=== PATIENT | female | born 1950 | race Caucasian/White ===

== ENCOUNTER 2017-01-16 13:02 | Emergency (ER) | payer MEDICAID, OTHER ==
[2017-01-16 13:09] VITALS: TEMP 97.9
--- NOTE | 2017-01-16 13:18 | CPEKG ---
Heart Rate: 65 RR Interval: 923 P-R Interval: 152 QRSD Interval: 90 QT Interval: 428 QTC Interval: 445 P [place]: 10 QRS [place]: 32 T Wave [place]: 17 EKG Severity - NORMAL ECG - EKG Impression: SINUS RHYTHM Electronically Signed By: Angel Whiting 16-Jan-2017 16:29:29
[2017-01-16] MEDS ORDERED: MAALOX/LIDO/HYOSC GI COCKTAIL 55 ML BOTTLE PO ONE (13:29)
[2017-01-16 13:41] LABS: % IMMATURE GRANULYOCYTES 0.4 % (0.0-1.1); ABSOLUTE IMMATURE GRANULOCYTES 0.04 10^3/uL (0.00-0.10); ADD DIFF? NO; ADD MORPH? NO; ADD SCAN? NO; ATYPICAL LYMPHOCYTE FLAG 10 (0-99); FRAGMENT RBC FLAG 0 (0-99); HEMATOCRIT 41.4 % (38.0-47.0); HEMOGLOBIN 14.2 g/dL (12.6-16.3); LEFT SHIFT FLG 0 (0-99); LIPEMIA HEMOLYSIS FLAG 90 (0-99); MEAN CELL HEMOGLOBIN 33.3 pg (27.9-34.1); MEAN CELL HEMOGLOBIN CONCENTR. 34.3 g/dL (32.4-36.7); MEAN CELL VOLUME 97.2 fL (81.5-99.8); MEAN PLATELET VOLUME 10.4 fL (8.7-11.7); PLATELET CLUMPS FLAG 0 (0-99); PLATELET COUNT 245 10^3/uL (150-400); RED BLOOD CELL COUNT 4.26 10^6/uL (4.18-5.33); RED CELL DISTRIBUTION WIDTH 13.1 % (11.5-15.2)
--- NOTE | 2017-01-16 13:42 | EDPHY ---
H & P Stated Complaint: mid sternal cp since last night , diff swallowing? pill stuck? Time Seen by Provider: 01/16/17 13:09 HPI/ROS: CHIEF COMPLAINT: Chest pain HISTORY OF PRESENT ILLNESS: The patient presents to the ED with a 1 day history of substernal chest pain. The patient does have a history of coronary artery disease. She reports this pain began after swallowing pills last night. She reports that her pain is primarily worsened with swallowing. She is able to swallow liquids without regurgitation or nausea. The patient has had no history of exertional chest pain or shortness of breath. She has a history of an LAD stent x1 approximately 2 years ago by her report. The patient denies pleuritic chest pain, asymmetric calf pain or swelling or additional complaints. REVIEW OF SYSTEMS: A comprehensive 10 point review of systems is otherwise negative aside from elements mentioned in the history of present illness. Source: Patient Exam Limitations: No limitations - Personal History Current Tetanus/Diphtheria Vaccine: Unsure Current Tetanus Diphtheria and Acellular Pertussis (TDAP): Unsure Tetanus Vaccine Date: 2010 - Medical/Surgical History Hx Asthma: No Hx Chronic Respiratory Disease: No Hx Diabetes: No Hx Cardiac Disease: Yes Hx Renal Disease: No Hx Cirrhosis: No Hx Alcoholism: No Hx HIV/AIDS: No Hx Splenectomy or Spleen Trauma: No Other PMH: HTN, Depression, Thyroid, bipolar. [place] 12/15 - Social History Smoking Status: Never smoked - Physical Exam Exam: General Appearance: Alert, no distress Eyes: Pupils equal and round no pallor or injection ENT, Mouth: Mucous membranes moist Respiratory: There are no retractions, lungs are clear to auscultation Cardiovascular: Regular rate and rhythm Gastrointestinal: Abdomen is soft and nontender, no masses, bowel sounds normal Neurological: A&O, normal motor function, normal sensory exam, normal cranial nerves Skin: Warm and dry, no rashes Musculoskeletal: Neck is supple nontender Extremities: symmetrical, full range of motion Constitutional: Initial Vital Signs Temperature (C) 36.6 C 01/16/17 13:06 Heart Rate 69 01/16/17 13:06 Respiratory Rate 16 01/16/17 13:06 Blood Pressure 144/85 H 01/16/17 13:06 O2 Sat (%) 97 01/16/17 13:06 O2 Delivery Mode Room Air Allergies/Adverse Reactions: lithium [[place]] Allergy (Verified 11/28/14 21:57) Home Medications: Medication Instructions Recorded Fosamax 70mg Tab 1 tab PO .WEEKLY 11/29/14 RX: Divalproex [Depakote] 250 mg PO HS 11/29/14 RX: Herbals/Supplements -Info Only 1 ea PO DAILY 11/29/14 RX: Levothyroxine [Synthroid 125 125 mcg PO DAILY06 11/29/14 mcg (*)] RX: Nortriptyline HCl [Pamelor 25 50 mg PO HS 11/29/14 mg (*)] RX: Ranitidine HCl [Zantac] 150 mg PO BID 11/29/14 RX: Ursodiol [Actigall 300MG (*)] 300 mg PO TID 11/29/14 RX: Ziprasidone HCl [Geodon] 80 mg PO HS 11/29/14 RX: Atorvastatin Calcium [Lipitor 10 mg PO DAILY #30 tab 12/04/14 10 mg (*)] RX: Enoxaparin [Lovenox 60 MG (*)] 50 mg SC BID #4 syr 12/04/14 RX: Metoprolol Tartrate [Lopressor 25 mg PO BID #15 tab 12/04/14 25 mg (*)] RX: Ticagrelor [Brilinta] 90 mg PO BID #60 tablet 12/04/14 RX: Warfarin Sodium [Coumadin 5MG 5 mg PO DAILY16 #30 tab 12/04/14 (*)] Medical Decision Making - Diagnostics EKG Interpretation: EKG: Complete interpretation has been separately recorded in the [employer] archive. Summary impression: Sinus rhythm, rate 65 ED Course/Re-evaluation: The patient presents to the ED with complaints of substernal chest discomfort which is worsened with swallowing. The patient was able to drink a GI cocktail without any issues in the emergency department. Her EKG and troponin are within normal limits. The patient did have serial examinations in the ED and at 3:00 p.m. is currently feeling better. The patient does understand that we cannot fully exclude progression of her underlying coronary artery disease. At this point time there is no evidence of myocardial infarction. Patient was offered admission to the hospital for observation given her known history of coronary disease however she prefers to go home. At this point time there is no evidence of an obvious esophageal foreign body causing significant restriction. It is certainly possible she has developed a mild pill esophagitis. The patient will be using Maalox as needed the next day. The patient will follow up with her regular physician as needed. She understands return to the ED for any worsening chest pain or other concerns. Differential Diagnosis: Differential diagnosis considered includes esophageal foreign body, acute coronary syndrome, myocardial infarction, esophageal spasm - Data Points Laboratory Results: Laboratory Results 01/16/17 13:20 01/16/17 13:20 01/16/17 01/16/17 13:20 13:20 WBC 9.70 10^3/uL H 10^3/uL (3.80-9.50) RBC 4.26 10^6/uL 10^6/uL (4.18-5.33) Hgb 14.2 g/dL g/dL (12.6-16.3) Hct 41.4 % % (38.0-47.0) MCV 97.2 fL fL (81.5-99.8) MCH 33.3 pg pg (27.9-34.1) MCHC 34.3 g/dL g/dL (32.4-36.7) RDW 13.1 % % (11.5-15.2) Plt Count 245 10^3/uL 10^3/uL (150-400) MPV 10.4 fL fL (8.7-11.7) Neut % (Auto) 65.1 % % (39.3-74.2) Lymph % (Auto) 20.5 % % (15.0-45.0) [place] % (Auto) 9.7 % % (4.5-13.0) Eos % (Auto) 3.6 % % (0.6-7.6) Baso % (Auto) 0.7 % % (0.3-1.7) Nucleat RBC Rel Count 0.0 % % (0.0-0.2) Absolute Neuts (auto) 6.31 10^3/uL 10^3/uL (1.70-6.50) Absolute Lymphs (auto) 1.99 10^3/uL 10^3/uL (1.00-3.00) Absolute Monos (auto) 0.94 10^3/uL H 10^3/uL (0.30-0.80) Absolute Eos (auto) 0.35 10^3/uL 10^3/uL (0.03-0.40) Absolute Basos (auto) 0.07 10^3/uL 10^3/uL (0.02-0.10) Absolute Nucleated RBC 0.00 10^3/uL 10^3/uL (0-0.01) Immature Gran % 0.4 % % (0.0-1.1) Immature Gran # 0.04 10^3/uL 10^3/uL (0.00-0.10) Sodium 140 mEq/L mEq/L (134-144) Potassium 4.2 mEq/L mEq/L (3.5-5.2) Chloride 105 mEq/L mEq/L (97-110) Carbon Dioxide 23 mEq/l mEq/l (22-31) Anion Gap 12 mEq/L mEq/L (8-16) BUN 22 mg/dL mg/dL (7-23) Creatinine 0.7 mg/dL mg/dL (0.6-1.0) Estimated GFR > 60 Glucose 106 mg/dL H mg/dL (70-100) Calcium 9.4 mg/dL mg/dL (8.5-10.4) Troponin I < 0.012 ng/mL ng/mL (0-0.034) Medications Given: Discontinued Medications Miscellaneous Medication (Gi Cocktail) 55 ml PO EDNOW ONE Stop: 01/16/17 13:30 Last Admin: 01/16/17 13:33 Dose: 55 ml Departure - Departure Disposition: Home, Routine, Self-Care Clinical Impression: Chest pain Condition: Good Instructions: Chest Pain (ED) Additional Instructions: 1. Based upon the testing done in the Emergency Department today we see no evidence of a heart attack. 2. We are unable to fully exclude coronary artery disease based upon the testing available in the Emergency Department. 3. For this reason, we would like you to be seen by cardiology for consideration of additional testing within the next 3 days. 4. Please contact the oven heater helper you have been referred to schedule this appointment as soon as possible. Their offices are typically open from 8:30am- 5pm M-F. 5. Please return to the Emergency Department immediately for any recurrent chest pain, difficulty breathing or other concerns. 6. I do recommend using Maalox as needed as you may be experiencing esophageal discomfort from swallowing pills. Please follow up with a batch operator, Dr. Murray, you have been referred to for any unimproved symptoms. Referrals: Gina Jain MD [Primary Care Provider] - As per Instructions Jaci Liriano MD [Medical Doctor] - As per Instructions Tra Murray MD [Medical Doctor] - As per Instructions
[2017-01-16 13:54] LABS: ANION GAP 12 mEq/L (8-16); CALCIUM 9.4 mg/dL (8.5-10.4); CARBON DIOXIDE 23 mEq/l (22-31); CHLORIDE 105 mEq/L (97-110); CREATININE 0.7 mg/dL (0.6-1.0); GLOMERULAR FILTRATION RATE > 60; GLUCOSE 106 mg/dL (70-100); POTASSIUM 4.2 mEq/L (3.5-5.2); SODIUM 140 mEq/L (134-144)
[2017-01-16 14:06] LABS: TROPONIN I < 0.012 ng/mL (0-0.034)
[2017-01-16 14:14] VITALS: O2SAT 95
[2017-01-16 15:25] VITALS: BP 129/72; PULSE 67; RESP 16
== END 2017-01-16 15:26 | disposition home or self-care (01) ==
DX: R07.9 Chest pain, unspecified (principal); I10 Essential (primary) hypertension; Z79.01 Long term (current) use of anticoagulants

== ENCOUNTER → 2017-02-22 | Outpatient (CLI) | payer OTHER | LOC: BHFA 13:15 | PROVIDERS: ATTEND Internal Medicine Interventional Cardiology | DX: I35.1 Nonrheumatic aortic (valve) insufficiency (principal); I25.10 Atherosclerotic heart disease of native coronary artery without angina pectoris | CPT/HCPCS: 78452; 93017; 93306; A9500 ==

== ENCOUNTER 2017-02-25 19:36 | Inpatient (IN) | payer OTHER ==
[2017-02-25] MEDS ORDERED: NS 1,000 ML IV ONE (19:41)
[2017-02-25] MEDS ORDERED: fentaNYL 100 MCG/2 ML INJ ONE ×3 (19:54→23:15)
[2017-02-25] MEDS ORDERED: fentaNYL 100 MCG/2 ML INJ IVP ONE (20:00)
--- NOTE | 2017-02-25 20:02 | CPEKG ---
Heart Rate: 67 RR Interval: 896 P-R Interval: 168 QRSD Interval: 94 QT Interval: 480 QTC Interval: 507 P [place]: 34 QRS [place]: 45 T Wave [place]: 27 EKG Severity - BORDERLINE ECG - EKG Impression: SINUS RHYTHM EKG Impression: BORDERLINE PROLONGED QT INTERVAL Electronically Signed By: Angel Whiting 25-Feb-2017 20:30:58
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
[2017-02-25 20:48] LABS: % IMMATURE GRANULYOCYTES 1.7 % (0.0-1.1); ADD DIFF? NO; ADD MORPH? NO; ADD SCAN? NO; ATYPICAL LYMPHOCYTE FLAG 10 (0-99); FRAGMENT RBC FLAG 0 (0-99); HEMATOCRIT 34.9 % (38.0-47.0); HEMOGLOBIN 12.1 g/dL (12.6-16.3); LEFT SHIFT FLG 10 (0-99); LIPEMIA HEMOLYSIS FLAG 90 (0-99); MEAN CELL HEMOGLOBIN 33.6 pg (27.9-34.1); MEAN CELL HEMOGLOBIN CONCENTR. 34.7 g/dL (32.4-36.7); MEAN CELL VOLUME 96.9 fL (81.5-99.8); MEAN PLATELET VOLUME 10.3 fL (8.7-11.7); PLATELET CLUMPS FLAG 0 (0-99); PLATELET COUNT 270 10^3/uL (150-400); RED CELL DISTRIBUTION WIDTH 12.5 % (11.5-15.2)
[2017-02-25] MEDS ORDERED: BUPIVACAINE 0.5% 30 ML SDV ONE (20:53)
[2017-02-25 21:01] LABS: INR 1.13 (0.83-1.16); PROTIME(PATIENT) 14.4 SEC (12.0-15.0)
[2017-02-25 21:02] LABS: APTT 27.2 SEC (23.0-38.0)
[2017-02-25 21:08] LABS: ANION GAP 9 mEq/L (8-16); CALCIUM 8.7 mg/dL (8.5-10.4); CARBON DIOXIDE 24 mEq/l (22-31); CHLORIDE 106 mEq/L (97-110); CREATININE 0.7 mg/dL (0.6-1.0); GLOMERULAR FILTRATION RATE > 60; GLUCOSE 134 mg/dL (70-100); POTASSIUM 4.2 mEq/L (3.5-5.2); SODIUM 139 mEq/L (134-144)
[2017-02-25] MEDS ORDERED: CEFAZOLIN 1 GM/DEXTROSE/50 ML BAG IV ONE (21:33)
[2017-02-25] MEDS ORDERED: MIDAZOLAM 2 MG/2 ML VIAL ONE (21:34)
[2017-02-25] MEDS ORDERED: NALOXONE HCL 0.4 MG/ML INJ IVP PRN (21:57)
[2017-02-25] MEDS ORDERED: ONDANSETRON 4 MG/2 ML VIAL IVP PRN (21:57)
[2017-02-25] MEDS ORDERED: ONDANSETRON DISINTEGRATING 4 MG TAB PO PRN (21:57)
[2017-02-25] MEDS ORDERED: morphINE PCA 30 MG/30 ML PCA IV PRN (22:03)
--- NOTE | 2017-02-25 22:03 | POSTOPPROG ---
Post Op Note Date of Operation: 02/25/17 Surgeon: Derian Sellers Anesthesia: GET(General Endotracheal) Pre-op Diagnosis: R Complex tibial plateau fx Post-op Diagnosis: same Procedure: closed reduction, Ex fix R LE Inf/Abcess present in the surg proc area at time of surgery?: No EBL: Minimal
[2017-02-25] MEDS ORDERED: PROPOFOL 200 MG/20 ML VIAL ONE (22:06)
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
[2017-02-25] MEDS ORDERED: DEXAMETHASONE 4 MG/ML VIAL ONE (22:30)
[2017-02-26] MEDS: oxyCODONE IR 5 MG TAB PO PRN ×3 (00:38→23:56)
[2017-02-26] MEDS: NORTRIPTYLINE HCL 25 MG CAP PO SCH ×2 (00:39→20:40)
[2017-02-26] MEDS: ZIPRASIDONE HCL 40 MG CAP PO SCH ×2 (00:39→23:56)
[2017-02-26] MEDS: LEVOTHYROXINE 137 MCG TAB PO SCH ×2 (00:53→20:41)
[2017-02-26] MEDS: METOPROLOL TARTRATE 25 MG TAB PO SCH ×3 (00:53→20:42)
[2017-02-26] MEDS: ATORVASTATIN CALCIUM 10 MG TAB PO SCH ×2 (00:53→20:42)
[2017-02-26] MEDS: ceFAZolin 2 GM/DEXTROSE 100 ML IV SCH ×2 (04:46→15:09)
[2017-02-26] MEDS: D5W 1/2 NS W/ 20 KCl/L 1,000 ML IV SCH (04:47)
[2017-02-26] MEDS ORDERED: NON-FORMULARY NEW DRUG (Ranitidine Hcl [Zantac 75] 75 MG) PO SCH (09:00)
[2017-02-26] MEDS ORDERED: FAMOTIDINE 20 MG/NACL 50 ML IV SCH (09:00)
--- NOTE | 2017-02-26 09:18 | SOAPPROG ---
SOAP Progress Note Assessment/Plan: Assessment: R Tibial Plateau fx Pain OK Sharyn po + U/O Fixator intact. Pin sites clean Able to flex/ext ankle and toes Toes with good cap refill + sensation throughout foot Compartments relatively soft No pain with passive toe ext. Plan: OOB/PT Fixator to remain in place. Plan definitive ORIF ~ 1 week to allow for improvement in swelling and Plavix anticoagulation to resolve 02/26/17 09:14 Objective: Vital Signs Temp Pulse Resp BP Pulse Ox 36.6 C 101 H 18 130/79 H 99 02/26/17 07:30 02/26/17 07:30 02/26/17 07:30 02/26/17 07:30 02/26/17 07:30 Laboratory Results 02/25/17 20:41 02/25/17 20:41 02/25/17 02/26/17 02/27/17 05:59 05:59 05:59 Intake Total 3400 Output Total 602 Balance 2798 PT 14.4 SEC (12.0-15.0) 02/25/17 20:41 INR 1.13 (0.83-1.16) 02/25/17 20:41 ICD10 Worksheet Patient Problems: Problems Problem Status Onset Fibula fracture Acute Fracture of right tibial plateau Acute AMI (acute myocardial infarction) Acute
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
--- NOTE | 2017-02-26 10:07 | GOP ---
[f rep st] OPERATIVE REPORT DATE OF OPERATION: 02/25/2017 SURGEON: Derian Sellers MD ANESTHESIA: General. PREOPERATIVE DIAGNOSIS: Right complex bicondylar tibial plateau fracture. POSTOPERATIVE DIAGNOSIS: Right complex bicondylar tibial plateau fracture. PROCEDURE PERFORMED: FINDINGS: ESTIMATED BLOOD LOSS: Negligibleemergent DESCRIPTION OF PROCEDURE: Patient was brought to the operating room after IV antibiotics were admin istered. She was placed in a supine position where general anesthetic was administered. The right lower extremity was prepped and draped in standard sterile fashion. Under fluoroscopic guidance, tw o 5.0 mm Schanz pins were placed in the distal tibia distal to the fracture and 2 Schanz pins were p laced in the femur. During placement of the Schanz pins in the femur, pin protector sleeves were ut ilized at all times protecting the entire anterior compartment musculature. Small incisions were ma de in the skin with dissection carried through the quadriceps musculature with a hemostatic. Two ca rbon fiber bars were attached to the tibial and femoral pins and bar to bar clamp at the knee was pl aced along for slight flexion of the knee. With distraction at the fracture site alignment was achi eved decompressing the fracture. All bar to pin and bar to bar clamps were tightened. Next followi ng application of the fixator, the lower leg compartments improved in their skin turgor and compartm ent firmness with no clinical evidence of compartment syndrome present. The pins were wrapped with Xeroform and Tyler gauze. Patient was taken to the recovery room, extubated in stable condition pos toperatively. All sponge, needle, and instrument counts reported as being correct. OPERATION PERFORMED: 1. Closed reduction right tibial plateau fracture. 2. Application of spanning femoral tibial external fixator. 3. Intraoperative use of fluoroscopy. DRAINS: None. COMPLICATIONS: None. PLAN: Patient will be admitted for medical management. Definitive open reduction, internal fixatio n will be delayed for approximately 1 week to allow for adequate resolution of soft tissue swelling. /[id number]/MODL
[2017-02-26] MEDS ORDERED: MAGNESIUM HYDROXIDE 30 ML UDCUP PO PRN (10:12)
[2017-02-26] MEDS ORDERED: LACTULOSE 20 GM/30 ML UDCUP PO PRN (10:12)
[2017-02-26] MEDS ORDERED: POLYETHYLENE GLYCOL 3350 17 GM PKT PO PRN (10:12)
[2017-02-26] MEDS ORDERED: BISACODYL 10 MG SUPP PR PRN (10:12)
[2017-02-26] MEDS: MULTIVITAMINS 1 EACH TAB PO SCH (10:27)
[2017-02-26] MEDS: FAMOTIDINE 20 MG TAB PO SCH ×2 (10:57→20:41)
[2017-02-26] MEDS: SENNOSIDES/DOCUSATE SODIUM TAB PO SCH ×2 (10:58→20:41)
[2017-02-26] MEDS: ACETAMINOPHEN 325 MG TAB PO PRN ×3 (12:39→20:40)
[2017-02-27] MEDS: ACETAMINOPHEN 325 MG TAB PO PRN ×2 (05:12→13:12)
[2017-02-27] MEDS: oxyCODONE IR 5 MG TAB PO PRN (05:13)
--- NOTE | 2017-02-27 06:48 | SOAPPROG ---
SOAP Progress Note Assessment/Plan: Assessment: R Tibial Plateau fx Pain OK Sharyn po + U/O Fixator intact. Pin sites clean Able to flex/ext ankle and toes Toes with good cap refill + sensation throughout foot Compartments relatively soft No pain with passive toe ext. Plan: OOB/PT Fixator to remain in place. Plan definitive ORIF ~ 1 week to allow for improvement in swelling and Plavix anticoagulation to resolve 02/26/17 09:14 02/27/17 06:45 Pain improved since yesterday Sharyn po OOB with PT Fixator in place. Pin sites clean Slight improvement in swelling No sign compartment syndrome Con't OOB/PT Definitive ORIF ~ Tuesday Objective: Vital Signs Temp Pulse Resp BP Pulse Ox 36.9 C 68 16 106/64 98 02/27/17 04:00 02/27/17 04:00 02/27/17 04:00 02/27/17 04:00 02/27/17 04:00 Laboratory Results 02/25/17 20:41 02/25/17 20:41 02/26/17 02/27/17 02/28/17 05:59 05:59 05:59 Intake Total 3400 250 Output Total 602 200 Balance 2798 50 PT 14.4 SEC (12.0-15.0) 02/25/17 20:41 INR 1.13 (0.83-1.16) 02/25/17 20:41 ICD10 Worksheet Patient Problems: Problems Problem Status Onset Fibula fracture Acute Fracture of right tibial plateau Acute AMI (acute myocardial infarction) Acute
[2017-02-27] MEDS: SENNOSIDES/DOCUSATE SODIUM TAB PO SCH (09:02)
[2017-02-27] MEDS: MULTIVITAMINS 1 EACH TAB PO SCH (09:02)
[2017-02-27] MEDS: FAMOTIDINE 20 MG TAB PO SCH ×2 (09:02→20:03)
[2017-02-27] MEDS: ENOXAPARIN 40 MG/0.4 ML SYR SC SCH (09:05)
[2017-02-27] MEDS: METOPROLOL TARTRATE 25 MG TAB PO SCH ×2 (09:44→20:02)
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
[2017-02-27] MEDS: URSODIOL 300 MG CAP PO SCH (16:00)
[2017-02-27] MEDS: ACETAMN/DIPHENHYDRAMINE 500/25MG TAB PO PRN (20:02)
[2017-02-27] MEDS: NORTRIPTYLINE HCL 25 MG CAP PO SCH (20:02)
[2017-02-27] MEDS: ATORVASTATIN CALCIUM 10 MG TAB PO SCH (20:03)
[2017-02-27] MEDS: LEVOTHYROXINE 137 MCG TAB PO SCH (20:03)
[2017-02-27] MEDS: ZIPRASIDONE HCL 40 MG CAP PO SCH (20:03)
[2017-02-28] MEDS: ACETAMINOPHEN 325 MG TAB PO PRN ×3 (00:17→15:54)
[2017-02-28] MEDS: SENNOSIDES/DOCUSATE SODIUM TAB PO SCH ×2 (00:19→08:13)
[2017-02-28] MEDS: oxyCODONE IR 5 MG TAB PO PRN ×2 (00:38→23:25)
--- NOTE | 2017-02-28 06:05 | SOAPPROG ---
SOAP Progress Note Assessment/Plan: Assessment: R Tibial Plateau fx Pain OK Carmen po + U/O Pain OK Fixator intact. Pin sites clean Able to flex/ext ankle and toes Toes with good cap refill + sensation throughout foot Compartments relatively soft No pain with passive toe ext. Plan: OOB/PT Fixator to remain in place. Plan definitive ORIF ~ 1 week to allow for improvement in swelling and Plavix anticoagulation to resolve 02/26/17 09:14 02/27/17 06:45 Pain improved since yesterday Carmen po OOB with PT Fixator in place. Pin sites clean Slight improvement in swelling No sign compartment syndrome Con't OOB/PT Definitive ORIF ~ Tuesday02/28/17 06:03 Pain OK on limited po meds carmen diet no calf pain ex fix intact. pin sites clean NV Unchanged No sign compartment syndrome. OOB/ elevation ORIF tentatively Tuesday Objective: Vital Signs Temp Pulse Resp BP Pulse Ox 36.6 C 82 16 143/96 H 99 02/28/17 04:00 02/28/17 04:00 02/28/17 04:00 02/28/17 04:00 02/28/17 04:00 Laboratory Results 02/25/17 20:41 02/25/17 20:41 02/27/17 02/28/17 03/01/17 05:59 05:59 05:59 Intake Total 250 840 Output Total 200 650 Balance 50 190 PT 14.4 SEC (12.0-15.0) 02/25/17 20:41 INR 1.13 (0.83-1.16) 02/25/17 20:41 ICD10 Worksheet Patient Problems: Problems Problem Status Onset Fibula fracture Acute Fracture of right tibial plateau Acute AMI (acute myocardial infarction) Acute
[2017-02-28] MEDS: FAMOTIDINE 20 MG TAB PO SCH ×2 (08:12→20:26)
[2017-02-28] MEDS: METOPROLOL TARTRATE 25 MG TAB PO SCH ×2 (08:12→20:25)
[2017-02-28] MEDS: MULTIVITAMINS 1 EACH TAB PO SCH (08:12)
[2017-02-28] MEDS: URSODIOL 300 MG CAP PO SCH (08:13)
[2017-02-28] MEDS: ENOXAPARIN 40 MG/0.4 ML SYR SC SCH (08:14)
[2017-02-28 08:59] LABS: ALANINE AMINOTRANSFERASE 41 IU/L (9-52); ALBUMIN 3.1 g/dL (3.5-5.0); ALKALINE PHOSPHATASE 81 IU/L (38-126); ANION GAP 7 mEq/L (8-16); ASPARTATE AMINOTRANSFERASE 32 IU/L (14-46); BILIRUBIN,TOTAL 0.6 mg/dL (0.1-1.4); CALCIUM 7.8 mg/dL (8.5-10.4); CARBON DIOXIDE 26 mEq/l (22-31); CHLORIDE 104 mEq/L (97-110); CREATININE 0.5 mg/dL (0.6-1.0); GLOMERULAR FILTRATION RATE > 60; GLUCOSE 188 mg/dL (70-100); POTASSIUM 3.6 mEq/L (3.5-5.2); SODIUM 137 mEq/L (134-144); TOTAL PROTEIN 5.4 g/dL (6.3-8.2)
[2017-02-28 09:44] LABS: HEMATOCRIT 24.1 % (38.0-47.0); HEMOGLOBIN 8.3 g/dL (12.6-16.3); MEAN CELL HEMOGLOBIN 33.6 pg (27.9-34.1); MEAN CELL HEMOGLOBIN CONCENTR. 34.4 g/dL (32.4-36.7); MEAN CELL VOLUME 97.6 fL (81.5-99.8); RED BLOOD CELL COUNT 2.47 10^6/uL (4.18-5.33); RED CELL DISTRIBUTION WIDTH 13.3 % (11.5-15.2)
--- NOTE | 2017-02-28 11:09 | TRAUMAPN ---
- Problem/Surgery Performed (1) Leukocytosis, unspecified Assessment/Plan: PAD# 4 Assessment: No complaints. Did have a stool yesterday. VVS. WBC 14K IS only to 1000cc Lungs clear Etiology unclear Plan: CXR, UA. Qualifiers: Leukocytosis type: unspecified Qualified Code(s): D72.829 - Elevated white blood cell count, unspecified Subjective: No complaints Objective: Vital Signs Temp Pulse Resp BP Pulse Ox 36.4 C 89 16 152/78 H 99 02/28/17 07:41 02/28/17 08:12 02/28/17 07:41 02/28/17 08:12 02/28/17 07:41 Laboratory Results 02/28/17 09:32 02/28/17 08:32 02/27/17 02/28/17 03/01/17 05:59 05:59 05:59 Intake Total 250 840 250 Output Total 200 650 Balance 50 190 250 PT 14.4 SEC (12.0-15.0) 02/25/17 20:41 INR 1.13 (0.83-1.16) 02/25/17 20:41 Physical Exam - Physical Exam General Appearance: alert, no apparent distress Neck: non-tender, full range of motion, supple, normal inspection Respiratory: chest non-tender, lungs clear, normal breath sounds Cardiac/Chest: regular rate, rhythm Abdomen: normal bowel sounds, non-tender, soft Pelvic Exam: deferred Rectal: deferred Back: Normal inspection Skin: normal color, warm/dry Neuro/Psych: alert, normal mood/affect, oriented x 3 Time Spent w/Patient (minutes): 25
[2017-02-28 15:30] LABS: COLOR YELLOW; LEUKOCYTE ESTERASE,URINE NEGATIVE (NEGATIVE); NITRITE,URINE NEGATIVE (NEGATIVE)
[2017-02-28] MEDS: ACETAMN/DIPHENHYDRAMINE 500/25MG TAB PO PRN (20:25)
[2017-02-28] MEDS: ATORVASTATIN CALCIUM 10 MG TAB PO SCH (20:25)
[2017-02-28] MEDS: NORTRIPTYLINE HCL 25 MG CAP PO SCH (20:25)
[2017-02-28] MEDS: ZIPRASIDONE HCL 40 MG CAP PO SCH (20:26)
[2017-02-28] MEDS: LEVOTHYROXINE 137 MCG TAB PO SCH (20:26)
[2017-02-28] MEDS: DIVALPROEX NA 250 MG TAB PO SCH (23:54)
[2017-03-01] MEDS: SENNOSIDES/DOCUSATE SODIUM TAB PO SCH ×2 (00:52→08:42)
[2017-03-01] MEDS: ACETAMINOPHEN 325 MG TAB PO PRN ×3 (05:04→17:05)
[2017-03-01 05:30] LABS: ABSOLUTE IMMATURE GRANULOCYTES 0.12 10^3/uL (0.00-0.10); ABSOLUTE NRBC COUNT 0.02 10^3/uL (0-0.01); ADD DIFF? NO; ADD MORPH? NO; ADD SCAN? NO; ATYPICAL LYMPHOCYTE FLAG 0 (0-99); FRAGMENT RBC FLAG 0 (0-99); HEMATOCRIT 23.6 % (38.0-47.0); HEMOGLOBIN 7.9 g/dL (12.6-16.3); LEFT SHIFT FLG 10 (0-99); LIPEMIA HEMOLYSIS FLAG 80 (0-99); MEAN CELL HEMOGLOBIN 33.2 pg (27.9-34.1); MEAN CELL HEMOGLOBIN CONCENTR. 33.5 g/dL (32.4-36.7); MEAN CELL VOLUME 99.2 fL (81.5-99.8); MEAN PLATELET VOLUME 10.7 fL (8.7-11.7); NRBC-AUTO% 0.2 % (0.0-0.2); PLATELET CLUMPS FLAG 0 (0-99); PLATELET COUNT 225 10^3/uL (150-400); RED BLOOD CELL COUNT 2.38 10^6/uL (4.18-5.33); RED CELL DISTRIBUTION WIDTH 13.6 % (11.5-15.2)
--- NOTE | 2017-03-01 06:01 | SOAPPROG ---
SOAP Progress Note Assessment/Plan: Assessment: R Tibial Plateau fx Pain OK Carmen po + U/O Pain OK Fixator intact. Pin sites clean Able to flex/ext ankle and toes Toes with good cap refill + sensation throughout foot Compartments relatively soft No pain with passive toe ext. Plan: OOB/PT Fixator to remain in place. Plan definitive ORIF ~ 1 week to allow for improvement in swelling and Plavix anticoagulation to resolve 02/26/17 09:14 02/27/17 06:45 Pain improved since yesterday Carmen po OOB with PT Fixator in place. Pin sites clean Slight improvement in swelling No sign compartment syndrome Con't OOB/PT Definitive ORIF ~ Tuesday02/28/17 06:03 Pain OK on limited po meds carmen diet no calf pain ex fix intact. pin sites clean NV Unchanged No sign compartment syndrome. OOB/ elevation ORIF tentatively Tuesday03/01/17 06:00 No new complaints. Fixator intact Swelling with mild improvement NV Unchanged ORIF Tuesday Objective: Vital Signs Temp Pulse Resp BP Pulse Ox 37.1 C 77 18 119/56 L 93 03/01/17 02:50 03/01/17 04:00 03/01/17 04:00 03/01/17 02:50 03/01/17 04:00 Laboratory Results 03/01/17 04:53 02/28/17 08:32 02/28/17 03/01/17 03/02/17 05:59 05:59 05:59 Intake Total 840 750 Output Total 650 850 Balance 190 -100 PT 14.4 SEC (12.0-15.0) 02/25/17 20:41 INR 1.13 (0.83-1.16) 02/25/17 20:41 ICD10 Worksheet Patient Problems: Problems Problem Status Onset Fibula fracture Acute Fracture of right tibial plateau Acute Leukocytosis, unspecified Acute AMI (acute myocardial infarction) Acute
--- NOTE | 2017-03-01 07:38 | TRAUMAPN ---
- Problem/Surgery Performed (1) Leukocytosis, unspecified Assessment/Plan: 02/28/2017 PAD# 4 Assessment: No complaints. Did have a stool yesterday. VVS. WBC 14K IS only to 1000cc Lungs clear Etiology unclear Plan: CXR, UA. 03/01/2017 Assessment: No complaints. WBC decreased to 12K without shift CXR - no pneumonia but there are probable fractures of right 4&5 ribs anteriorly Lungs clear - not consistently using IS UA unremarkable Plan: continue to encourage IS use pre-op Qualifiers: Leukocytosis type: unspecified Qualified Code(s): D72.829 - Elevated white blood cell count, unspecified (2) Ribs, multiple fractures Assessment/Plan: Non-displaced right rib fractures identified on CXR yesterday. No PTX. NOT tender! Needs to use IS Qualifiers: Encounter type: initial encounter Fracture type: closed Laterality: right Fracture healing: F Qualified Code(s): S22.41XA - Multiple fractures of ribs, right side, initial encounter for closed fracture Subjective: no complaints Objective: Vital Signs Temp Pulse Resp BP Pulse Ox 37.1 C 77 18 119/56 L 93 03/01/17 02:50 03/01/17 04:00 03/01/17 04:00 03/01/17 02:50 03/01/17 04:00 Laboratory Results 03/01/17 04:53 02/28/17 08:32 02/28/17 03/01/17 03/02/17 05:59 05:59 05:59 Intake Total 840 750 Output Total 650 850 Balance 190 -100 PT 14.4 SEC (12.0-15.0) 02/25/17 20:41 INR 1.13 (0.83-1.16) 02/25/17 20:41 Physical Exam - Physical Exam General Appearance: WD/WN, alert, no apparent distress Neck: non-tender, full range of motion, supple, normal inspection Respiratory: chest non-tender, lungs clear, normal breath sounds Cardiac/Chest: regular rate, rhythm Abdomen: normal bowel sounds, non-tender, soft Pelvic Exam: deferred Rectal: deferred Back: Normal inspection Skin: normal color, warm/dry Neuro/Psych: no motor/sensory deficits, alert, normal mood/affect, oriented x 3 Time Spent w/Patient (minutes): 25
[2017-03-01] MEDS: FAMOTIDINE 20 MG TAB PO SCH ×2 (08:42→19:59)
[2017-03-01] MEDS: MULTIVITAMINS 1 EACH TAB PO SCH (08:42)
[2017-03-01] MEDS: URSODIOL 300 MG CAP PO SCH (08:42)
[2017-03-01] MEDS: METOPROLOL TARTRATE 25 MG TAB PO SCH ×2 (08:43→19:59)
[2017-03-01] MEDS: ENOXAPARIN 40 MG/0.4 ML SYR SC SCH (08:44)
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
[2017-03-01 16:37] LABS: HEMOGLOBIN A1C 5.8 % (4.0-6.0)
[2017-03-01] MEDS: ACETAMN/DIPHENHYDRAMINE 500/25MG TAB PO PRN (19:58)
[2017-03-01] MEDS: DIVALPROEX NA 250 MG TAB PO SCH (19:59)
[2017-03-01] MEDS: NORTRIPTYLINE HCL 25 MG CAP PO SCH (20:00)
[2017-03-01] MEDS: ATORVASTATIN CALCIUM 10 MG TAB PO SCH (20:00)
[2017-03-01] MEDS: LEVOTHYROXINE 137 MCG TAB PO SCH (20:00)
[2017-03-01] MEDS: ZIPRASIDONE HCL 40 MG CAP PO SCH (20:38)
[2017-03-01] MEDS: oxyCODONE IR 5 MG TAB PO PRN (23:01)
[2017-03-02] MEDS: SENNOSIDES/DOCUSATE SODIUM TAB PO SCH ×3 (01:56→21:11)
--- NOTE | 2017-03-02 06:03 | SOAPPROG ---
SOAP Progress Note Assessment/Plan: Assessment: R Tibial Plateau fx Pain OK Carmen po + U/O Pain OK Fixator intact. Pin sites clean Able to flex/ext ankle and toes Toes with good cap refill + sensation throughout foot Compartments relatively soft No pain with passive toe ext. Plan: OOB/PT Fixator to remain in place. Plan definitive ORIF ~ 1 week to allow for improvement in swelling and Plavix anticoagulation to resolve 02/26/17 09:14 02/27/17 06:45 Pain improved since yesterday Carmen po OOB with PT Fixator in place. Pin sites clean Slight improvement in swelling No sign compartment syndrome Con't OOB/PT Definitive ORIF ~ Tuesday02/28/17 06:03 Pain OK on limited po meds carmen diet no calf pain ex fix intact. pin sites clean NV Unchanged No sign compartment syndrome. OOB/ elevation ORIF tentatively Tuesday03/01/17 06:00 No new complaints. Fixator intact Swelling with mild improvement NV Unchanged ORIF Tuesday03/02/17 06:01 Pain tolerable No new complaints Ex Fix intact, pins clean. swelling con't to improve. ORIF Tuesday Objective: Vital Signs Temp Pulse Resp BP Pulse Ox 36.4 C 80 20 124/69 H 100 03/02/17 00:00 03/02/17 04:00 03/02/17 04:00 03/02/17 00:00 03/02/17 04:00 Laboratory Results 03/01/17 04:53 02/28/17 08:32 03/01/17 03/02/17 03/03/17 05:59 05:59 05:59 Intake Total 750 750 Output Total 850 700 Balance -100 50 PT 14.4 SEC (12.0-15.0) 02/25/17 20:41 INR 1.13 (0.83-1.16) 02/25/17 20:41 ICD10 Worksheet Patient Problems: Problems Problem Status Onset Fibula fracture Acute Fracture of right tibial plateau Acute Leukocytosis, unspecified Acute Ribs, multiple fractures Acute AMI (acute myocardial infarction) Acute
[2017-03-02] MEDS: ACETAMINOPHEN 325 MG TAB PO PRN ×4 (06:15→21:11)
[2017-03-02] MEDS: URSODIOL 300 MG CAP PO SCH (08:57)
[2017-03-02] MEDS: ENOXAPARIN 40 MG/0.4 ML SYR SC SCH (08:57)
[2017-03-02] MEDS: MULTIVITAMINS 1 EACH TAB PO SCH (08:57)
[2017-03-02] MEDS: METOPROLOL TARTRATE 25 MG TAB PO SCH ×2 (08:58→21:11)
[2017-03-02] MEDS: FAMOTIDINE 20 MG TAB PO SCH ×2 (08:59→21:11)
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
[2017-03-02] MEDS: ZIPRASIDONE HCL 40 MG CAP PO SCH (21:11)
[2017-03-02] MEDS: NORTRIPTYLINE HCL 25 MG CAP PO SCH (21:11)
[2017-03-02] MEDS: ATORVASTATIN CALCIUM 10 MG TAB PO SCH (21:11)
[2017-03-02] MEDS: LEVOTHYROXINE 137 MCG TAB PO SCH (21:11)
[2017-03-02] MEDS: DIVALPROEX NA 250 MG TAB PO SCH (21:11)
[2017-03-02] MEDS: oxyCODONE IR 5 MG TAB PO PRN (23:23)
[2017-03-03] MEDS: ACETAMINOPHEN 325 MG TAB PO PRN ×4 (06:20→21:38)
[2017-03-03] MEDS: MULTIVITAMINS 1 EACH TAB PO SCH (08:12)
[2017-03-03] MEDS: FAMOTIDINE 20 MG TAB PO SCH ×2 (08:12→21:38)
[2017-03-03] MEDS: METOPROLOL TARTRATE 25 MG TAB PO SCH ×2 (08:12→21:39)
[2017-03-03] MEDS: URSODIOL 300 MG CAP PO SCH (08:12)
[2017-03-03] MEDS: SENNOSIDES/DOCUSATE SODIUM TAB PO SCH ×2 (08:13→22:20)
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
[2017-03-03 13:46] LABS: ABSOLUTE NRBC COUNT 0.12 10^3/uL (0-0.01); ADD DIFF? YES; ADD MORPH? NO; ADD SCAN? NO; ATYPICAL LYMPHOCYTE FLAG 0 (0-99); FRAGMENT RBC FLAG 0 (0-99); HEMATOCRIT 26.2 % (38.0-47.0); HEMOGLOBIN 8.6 g/dL (12.6-16.3); LEFT SHIFT FLG 20 (0-99); LIPEMIA HEMOLYSIS FLAG 80 (0-99); MEAN CELL HEMOGLOBIN 32.2 pg (27.9-34.1); MEAN CELL HEMOGLOBIN CONCENTR. 32.8 g/dL (32.4-36.7); MEAN CELL VOLUME 98.1 fL (81.5-99.8); NRBC-AUTO% 0.8 % (0.0-0.2); PLATELET CLUMPS FLAG 0 (0-99); PLATELET COUNT 344 10^3/uL (150-400); RED BLOOD CELL COUNT 2.67 10^6/uL (4.18-5.33); RED CELL DISTRIBUTION WIDTH 14.3 % (11.5-15.2)
[2017-03-03 15:05] LABS: PLATELET ESTIMATE ADEQUATE (ADEQ)
[2017-03-03 15:06] LABS: POLYCHROMASIA 1+
[2017-03-03] MEDS: oxyCODONE IR 5 MG TAB PO PRN (21:38)
[2017-03-03] MEDS: ATORVASTATIN CALCIUM 10 MG TAB PO SCH (21:38)
[2017-03-03] MEDS: DIVALPROEX NA 250 MG TAB PO SCH (21:38)
[2017-03-03] MEDS: NORTRIPTYLINE HCL 25 MG CAP PO SCH (21:38)
[2017-03-03] MEDS: ZIPRASIDONE HCL 40 MG CAP PO SCH (21:38)
[2017-03-03] MEDS: LEVOTHYROXINE 137 MCG TAB PO SCH (21:39)
[2017-03-03] MEDS: ACETAMN/DIPHENHYDRAMINE 500/25MG TAB PO PRN (22:53)
[2017-03-04] MEDS ORDERED: BUPIVACAINE/EPI 0.5% 30 ML SDV ONE (07:57)
[2017-03-04] MEDS: SENNOSIDES/DOCUSATE SODIUM TAB PO SCH ×2 (08:15→20:36)
[2017-03-04] MEDS: FAMOTIDINE 20 MG TAB PO SCH ×2 (08:15→20:32)
[2017-03-04] MEDS: MULTIVITAMINS 1 EACH TAB PO SCH (08:15)
[2017-03-04] MEDS: URSODIOL 300 MG CAP PO SCH (08:15)
[2017-03-04] MEDS: D5W 1/2 NS W/ 20 KCl/L 1,000 ML IV SCH (09:40)
[2017-03-04] MEDS: ACETAMINOPHEN 325 MG TAB PO PRN (09:44)
[2017-03-04] MEDS: METOPROLOL TARTRATE 25 MG TAB PO SCH ×2 (09:44→20:32)
[2017-03-04] MEDS ORDERED: LR 1,000 ML IV ONE (13:43)
--- NOTE | 2017-03-04 13:45 | POSTOPPROG ---
Post Op Note Date of Operation: 03/04/17 Surgeon: Derian Sellers Director Of Housing: Monica Zhu PAC Anesthesia: GET(General Endotracheal) Pre-op Diagnosis: R Tibial plateau fx Post-op Diagnosis: Same Procedure: ORIF R tibial plateau fx, removal ex fix Inf/Abcess present in the surg proc area at time of surgery?: No EBL: 50-100
[2017-03-04] MEDS ORDERED: MIDAZOLAM 2 MG/2 ML VIAL ONE (13:54)
[2017-03-04] MEDS ORDERED: PROPOFOL 200 MG/20 ML VIAL ONE (13:56)
[2017-03-04] MEDS ORDERED: LIDOCAINE 2% 100 MG/5 ML SYR ONE (13:56)
[2017-03-04] MEDS ORDERED: ROCURONIUM 50 MG/5 ML VIAL ONE (13:56)
[2017-03-04] MEDS ORDERED: ceFAZolin 1 GM VIAL ONE ×2 (13:59)
[2017-03-04] MEDS ORDERED: PHENYLEPHRINE HCL 100 MCG/ML SYR ONE (14:23)
[2017-03-04] MEDS ORDERED: LABETALOL HCL 50 MG/10 ML SYR ONE (15:31)
[2017-03-04] MEDS ORDERED: HYDROmorphONE/DILAUDID 2 MG/ML INJ ONE (16:07)
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
[2017-03-04] MEDS: oxyCODONE IR 5 MG TAB PO PRN ×3 (19:12→23:40)
[2017-03-04] MEDS: DIVALPROEX NA 250 MG TAB PO SCH (20:32)
[2017-03-04] MEDS: LEVOTHYROXINE 137 MCG TAB PO SCH (20:32)
[2017-03-04] MEDS: ATORVASTATIN CALCIUM 10 MG TAB PO SCH (20:32)
[2017-03-04] MEDS: ZIPRASIDONE HCL 40 MG CAP PO SCH (20:32)
[2017-03-04] MEDS: NORTRIPTYLINE HCL 25 MG CAP PO SCH (20:32)
[2017-03-05] MEDS: oxyCODONE IR 5 MG TAB PO PRN ×5 (02:38→21:20)
[2017-03-05] MEDS: ENOXAPARIN 40 MG/0.4 ML SYR SC SCH (08:46)
[2017-03-05] MEDS: URSODIOL 300 MG CAP PO SCH (08:49)
[2017-03-05] MEDS: FAMOTIDINE 20 MG TAB PO SCH (08:49)
[2017-03-05] MEDS: SENNOSIDES/DOCUSATE SODIUM TAB PO SCH ×2 (08:50→21:19)
[2017-03-05] MEDS: MULTIVITAMINS 1 EACH TAB PO SCH (08:50)
[2017-03-05] MEDS: METOPROLOL TARTRATE 25 MG TAB PO SCH ×2 (08:50→21:19)
--- NOTE | 2017-03-05 10:47 | SOAPPROG ---
SOAP Progress Note Assessment/Plan: Assessment: R Tibial Plateau fx Pain OK Carmen po + U/O Pain OK Fixator intact. Pin sites clean Able to flex/ext ankle and toes Toes with good cap refill + sensation throughout foot Compartments relatively soft No pain with passive toe ext. Plan: OOB/PT Fixator to remain in place. Plan definitive ORIF ~ 1 week to allow for improvement in swelling and Plavix anticoagulation to resolve 02/26/17 09:14 02/27/17 06:45 Pain improved since yesterday Carmen po OOB with PT Fixator in place. Pin sites clean Slight improvement in swelling No sign compartment syndrome Con't OOB/PT Definitive ORIF ~ Tuesday02/28/17 06:03 Pain OK on limited po meds carmen diet no calf pain ex fix intact. pin sites clean NV Unchanged No sign compartment syndrome. OOB/ elevation ORIF tentatively Tuesday03/01/17 06:00 No new complaints. Fixator intact Swelling with mild improvement NV Unchanged ORIF Tuesday03/02/17 06:01 Pain tolerable No new complaints Ex Fix intact, pins clean. swelling con't to improve. ORIF Tuesday03/05/17 10:45 S/P ORIF R Tibial plateau fx. Pain tolerable Carmen po + U/O Dressing intact. Mild sang D/C Tib/Peroneal nn. grossly intact to motor/sensory. No sign Compartment syndrome OOB/PT Rehab vs SNF transfer Objective: Vital Signs Temp Pulse Resp BP Pulse Ox 36.4 C 99 22 H 147/71 H 100 03/05/17 08:00 03/05/17 08:00 03/05/17 08:00 03/05/17 08:00 03/05/17 08:00 Laboratory Results 03/03/17 13:35 02/28/17 08:32 03/04/17 03/05/17 03/06/17 05:59 05:59 05:59 Intake Total 200 2400 Output Total 750 700 300 Balance -550 1700 -300 PT 14.4 SEC (12.0-15.0) 02/25/17 20:41 INR 1.13 (0.83-1.16) 02/25/17 20:41 ICD10 Worksheet Patient Problems: Problems Problem Status Onset Fibula fracture Acute Fracture of right tibial plateau Acute Leukocytosis, unspecified Acute Ribs, multiple fractures Acute AMI (acute myocardial infarction) Acute
--- NOTE | 2017-03-05 10:51 | PDIAF ---
- Diagnosis Code Status: Full Code - Medication Management Discharge Medications: Medications to Continue on Transfer Aspirin [Aspirin 81mg (*)] 81 mg PO HS 02/25/17 [Last Taken 02/24/17] Atorvastatin Calcium [Lipitor 10 mg (*)] 10 mg PO HS 02/25/17 [Last Taken ] Clopidogrel Bisulfate [Plavix (*)] 75 mg PO DAILY 02/25/17 [Last Taken 02/25/17] Herbals/Supplements -Info Only 1 ea PO DAILY 02/25/17 [Last Taken Unknown] Levothyroxine [Synthroid 137 mcg (*)] 137 mcg PO HS 02/25/17 [Last Taken ] Metoprolol Tartrate [Lopressor 25 mg (*)] 25 mg PO BID 02/25/17 [Last Taken ] Multivitamins [Multivitamin (*)] 1 each PO DAILY 02/25/17 [Last Taken Unknown] Nortriptyline HCl [Pamelor 25 mg (*)] 25 mg PO HS 02/25/17 [Last Taken 02/24/17] Ranitidine HCl [Zantac 75] 75 mg PO BID 02/25/17 [Last Taken 02/25/17] Ursodiol [Actigall 300MG (*)] 900 mg PO DAILY 02/25/17 [Last Taken 02/25/17] Ziprasidone HCl [Geodon 40MG (*)] 40 mg PO HS 02/25/17 [Last Taken 02/24/17] Discharge Medications: Refer to the Discharge Home Medication list for PRN reason. - Orders Diet Recommendation: no restrictions on diet Wound Care Instructions: Keep dressing over wound. May change if needed d/t sang. discharge Sutures/[place] Site: Right lower leg. Leave in place Activity/Weight Bearing Restrictions: Non weight bearing RLE (LIGHT touch down for balance). Knee ROM. CPM. Do not allow patient to have knee in flexed position for prolonged periods - Follow Up Care Current Providers and Referrals: Patient,NotPresent [Unknown] - As per Instructions
[2017-03-05 11:33] LABS: ABSOLUTE NRBC COUNT 0.07 10^3/uL (0-0.01); ADD DIFF? YES; ADD MORPH? NO; ADD SCAN? NO; ATYPICAL LYMPHOCYTE FLAG 0 (0-99); FRAGMENT RBC FLAG 0 (0-99); HEMATOCRIT 24.6 % (38.0-47.0); HEMOGLOBIN 8.3 g/dL (12.6-16.3); LEFT SHIFT FLG 30 (0-99); LIPEMIA HEMOLYSIS FLAG 80 (0-99); MEAN CELL HEMOGLOBIN 33.3 pg (27.9-34.1); MEAN CELL HEMOGLOBIN CONCENTR. 33.7 g/dL (32.4-36.7); MEAN CELL VOLUME 98.8 fL (81.5-99.8); MEAN PLATELET VOLUME 9.7 fL (8.7-11.7); NRBC-AUTO% 0.3 % (0.0-0.2); PLATELET CLUMPS FLAG 10 (0-99); PLATELET COUNT 412 10^3/uL (150-400); RED BLOOD CELL COUNT 2.49 10^6/uL (4.18-5.33); RED CELL DISTRIBUTION WIDTH 14.6 % (11.5-15.2)
[2017-03-05 12:20] LABS: PLATELET ESTIMATE ADEQUATE (ADEQ); POLYCHROMASIA 1+
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
[2017-03-05] MEDS ORDERED: ACETAMINOPHEN 325 MG TAB PO SCH (14:00)
[2017-03-05] MEDS: ACETAMINOPHEN 500 MG TAB PO SCH ×2 (14:02→21:19)
[2017-03-05] MEDS: ATORVASTATIN CALCIUM 10 MG TAB PO SCH (21:19)
[2017-03-05] MEDS: DIVALPROEX NA 250 MG TAB PO SCH (21:19)
[2017-03-05] MEDS: NORTRIPTYLINE HCL 25 MG CAP PO SCH (21:19)
[2017-03-05] MEDS: LEVOTHYROXINE 137 MCG TAB PO SCH (21:19)
[2017-03-05] MEDS: ZIPRASIDONE HCL 40 MG CAP PO SCH (21:19)
[2017-03-06] MEDS: ACETAMINOPHEN 500 MG TAB PO SCH ×3 (06:09→21:55)
[2017-03-06] MEDS: POLYETHYLENE GLYCOL 3350 17 GM PKT PO SCH (08:33)
[2017-03-06] MEDS: SENNOSIDES/DOCUSATE SODIUM TAB PO SCH ×2 (08:33→20:06)
[2017-03-06] MEDS: MULTIVITAMINS 1 EACH TAB PO SCH (08:33)
[2017-03-06] MEDS: METOPROLOL TARTRATE 25 MG TAB PO SCH ×2 (08:33→20:06)
[2017-03-06] MEDS: URSODIOL 300 MG CAP PO SCH (08:34)
[2017-03-06] MEDS: ENOXAPARIN 40 MG/0.4 ML SYR SC SCH (08:35)
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
[2017-03-06] MEDS: oxyCODONE IR 5 MG TAB PO PRN ×2 (10:45→17:54)
[2017-03-06 10:58] LABS: ABSOLUTE NRBC COUNT 0.03 10^3/uL (0-0.01); ADD DIFF? YES; ADD MORPH? NO; ADD SCAN? NO; ATYPICAL LYMPHOCYTE FLAG 0 (0-99); FRAGMENT RBC FLAG 0 (0-99); HEMATOCRIT 22.7 % (38.0-47.0); HEMOGLOBIN 7.4 g/dL (12.6-16.3); LEFT SHIFT FLG 20 (0-99); LIPEMIA HEMOLYSIS FLAG 80 (0-99); MEAN CELL HEMOGLOBIN 33.5 pg (27.9-34.1); MEAN CELL HEMOGLOBIN CONCENTR. 32.6 g/dL (32.4-36.7); MEAN CELL VOLUME 102.7 fL (81.5-99.8); MEAN PLATELET VOLUME 9.9 fL (8.7-11.7); NRBC-AUTO% 0.2 % (0.0-0.2); PLATELET CLUMPS FLAG 0 (0-99); PLATELET COUNT 389 10^3/uL (150-400); RED BLOOD CELL COUNT 2.21 10^6/uL (4.18-5.33); RED CELL DISTRIBUTION WIDTH 15.2 % (11.5-15.2)
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
[2017-03-06 12:11] LABS: PLATELET ESTIMATE ADEQUATE (ADEQ); POLYCHROMASIA 1+; TOXIC GRANULATION PRESENT
[2017-03-06] MEDS: NORTRIPTYLINE HCL 25 MG CAP PO SCH (20:06)
[2017-03-06] MEDS: DIVALPROEX NA 250 MG TAB PO SCH (20:06)
[2017-03-06] MEDS: ATORVASTATIN CALCIUM 10 MG TAB PO SCH (20:06)
[2017-03-06] MEDS: LEVOTHYROXINE 137 MCG TAB PO SCH (20:06)
[2017-03-06] MEDS: ZIPRASIDONE HCL 40 MG CAP PO SCH (20:06)
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
[2017-03-07] MEDS: oxyCODONE IR 5 MG TAB PO PRN ×2 (00:02→07:01)
[2017-03-07] MEDS: ACETAMINOPHEN 500 MG TAB PO SCH ×2 (05:55→13:37)
[2017-03-07 07:31] VITALS: RESP 12; TEMP 98.2; O2SAT 91
[2017-03-07] MEDS: SENNOSIDES/DOCUSATE SODIUM TAB PO SCH (09:00)
[2017-03-07] MEDS: URSODIOL 300 MG CAP PO SCH (09:00)
[2017-03-07] MEDS: POLYETHYLENE GLYCOL 3350 17 GM PKT PO SCH (09:00)
[2017-03-07] MEDS: MULTIVITAMINS 1 EACH TAB PO SCH (09:01)
[2017-03-07] MEDS: METOPROLOL TARTRATE 25 MG TAB PO SCH (09:01)
[2017-03-07] MEDS: ENOXAPARIN 40 MG/0.4 ML SYR SC SCH (09:01)
[2017-03-07 09:09] VITALS: BP 127/55; PULSE 90
[2017-03-07 10:06] LABS: ABSOLUTE NRBC COUNT 0.07 10^3/uL (0-0.01); ADD DIFF? YES; ADD MORPH? NO; ADD SCAN? NO; ATYPICAL LYMPHOCYTE FLAG 0 (0-99); FRAGMENT RBC FLAG 0 (0-99); HEMATOCRIT 24.9 % (38.0-47.0); HEMOGLOBIN 8.2 g/dL (12.6-16.3); LEFT SHIFT FLG 20 (0-99); LIPEMIA HEMOLYSIS FLAG 80 (0-99); MEAN CELL HEMOGLOBIN 32.7 pg (27.9-34.1); MEAN CELL HEMOGLOBIN CONCENTR. 32.9 g/dL (32.4-36.7); MEAN CELL VOLUME 99.2 fL (81.5-99.8); MEAN PLATELET VOLUME 9.6 fL (8.7-11.7); NRBC-AUTO% 0.4 % (0.0-0.2); PLATELET CLUMPS FLAG 20 (0-99); PLATELET COUNT 487 10^3/uL (150-400); RED BLOOD CELL COUNT 2.51 10^6/uL (4.18-5.33); RED CELL DISTRIBUTION WIDTH 15.3 % (11.5-15.2)
--- NOTE | 2017-03-07 10:27 | PDIAF ---
- Diagnosis Diagnosis: tib/fib fracture s/p ORIF Code Status: Full Code - Medication Management Discharge Medications: Medications to Continue on Transfer Aspirin [Aspirin 81mg (*)] 81 mg PO HS 02/25/17 [Last Taken 02/24/17] Atorvastatin Calcium [Lipitor 10 mg (*)] 10 mg PO HS 02/25/17 [Last Taken ] Clopidogrel Bisulfate [Plavix (*)] 75 mg PO DAILY 02/25/17 [Last Taken 02/25/17] Herbals/Supplements -Info Only 1 ea PO DAILY 02/25/17 [Last Taken Unknown] Levothyroxine [Synthroid 137 mcg (*)] 137 mcg PO HS 02/25/17 [Last Taken ] Metoprolol Tartrate [Lopressor 25 mg (*)] 25 mg PO BID 02/25/17 [Last Taken ] Multivitamins [Multivitamin (*)] 1 each PO DAILY 02/25/17 [Last Taken Unknown] Nortriptyline HCl [Pamelor 25 mg (*)] 25 mg PO HS 02/25/17 [Last Taken 02/24/17] Ranitidine HCl [Zantac 75] 75 mg PO BID 02/25/17 [Last Taken 02/25/17] Ursodiol [Actigall 300MG (*)] 900 mg PO DAILY 02/25/17 [Last Taken 02/25/17] Ziprasidone HCl [Geodon 40MG (*)] 40 mg PO HS 02/25/17 [Last Taken 02/24/17] Enoxaparin [Lovenox 40 MG (*)] 40 mg SQ DAILY #10 syr 03/07/17 [Last Taken Unknown] oxyCODONE IR [Oxycodone Ir (*)] 5 - 15 mg PO Q3HRS PRN #20 tab 03/07/17 [Last Taken Unknown] Discharge Medications: Refer to the Discharge Home Medication list for PRN reason. - Orders Services needed: Physical Therapy, Occupational Therapy Diet Recommendation: no restrictions on diet Wound Care Instructions: Keep dressing over wound. May change if needed d/t sang. discharge Sutures/Rasheeda Site: Right lower leg. Leave in place Activity/Weight Bearing Restrictions: Non weight bearing RLE (LIGHT touch down for balance). Knee ROM. CPM. Do not allow patient to have knee in flexed position for prolonged periods Additional: Stop lovenox after 10 days - Follow Up Care Current Providers and Referrals: Patient,NotPresent [Unknown] - As per Instructions Derian Sellers MD [Medical Doctor] -
[2017-03-07 11:49] LABS: PLATELET ESTIMATE INCREASED (ADEQ); POLYCHROMASIA 1+; TOXIC GRANULATION PRESENT
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
[2017-03-08] MEDS ORDERED: URSODIOL 300 MG CAP PO SCH (09:00)
== END 2017-03-07 14:57 | DRG 493 ==
LOC: EDUNIT# → F3N 23:59
PROVIDERS: ADMIT Surgery; ATTEND Surgery
PROC: 0QSG35Z Reposition Right Tibia with External Fixation Device, Percutaneous Approach (ICD-10-PCS; 2017-02-25)
PROC: 0QSG04Z Reposition Right Tibia with Internal Fixation Device, Open Approach (ICD-10-PCS; principal; 2017-03-04 13:30)
DX: S82.141A Displaced bicondylar fracture of right tibia, initial encounter for closed fracture (principal); D62 Acute posthemorrhagic anemia; S82.451A Displaced comminuted fracture of shaft of right fibula, initial encounter for closed fracture; I25.10 Atherosclerotic heart disease of native coronary artery without angina pectoris; Z95.5 Presence of coronary angioplasty implant and graft; I25.5 Ischemic cardiomyopathy; F31.9 Bipolar disorder, unspecified; V03.10XA Pedestrian on foot injured in collision with car, pick-up truck or van in traffic accident, initial encounter; Y92.410 Unspecified street and highway as the place of occurrence of the external cause; I25.2 Old myocardial infarction; I10 Essential (primary) hypertension; E03.9 Hypothyroidism, unspecified
CPT/HCPCS: 92523-GN; 96374; 97116-GP; 97161-GP; 97165-GO; 97530-GO; 97530-GP; 97535-GO; C1713; C1762; C1769; G8978-GP-CK; G8979-GP-CI; G8987-GO-CK; G8988-GO-CI; G9165-GN-CH; G9166-GN-CH; G9167-GN-CH; J0690; J1100; J1170; J1650; J2001; J2250; J2370; J2704; J3010

== ENCOUNTER 2017-03-29 18:13 | Emergency (ER) | payer OTHER ==
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
[2017-03-29 20:26] LABS: % IMMATURE GRANULYOCYTES 0.9 % (0.0-1.1); ABSOLUTE IMMATURE GRANULOCYTES 0.12 10^3/uL (0.00-0.10); ADD DIFF? NO; ADD MORPH? NO; ADD SCAN? NO; ATYPICAL LYMPHOCYTE FLAG 10 (0-99); FRAGMENT RBC FLAG 0 (0-99); HEMATOCRIT 37.5 % (38.0-47.0); LEFT SHIFT FLG 0 (0-99); LIPEMIA HEMOLYSIS FLAG 80 (0-99); MEAN CELL HEMOGLOBIN 31.3 pg (27.9-34.1); MEAN CELL VOLUME 97.7 fL (81.5-99.8); PLATELET CLUMPS FLAG 0 (0-99); PLATELET COUNT 484 10^3/uL (150-400); RED BLOOD CELL COUNT 3.84 10^6/uL (4.18-5.33); RED CELL DISTRIBUTION WIDTH 14.4 % (11.5-15.2)
[2017-03-29 20:41] LABS: ANION GAP 13 mEq/L (8-16); CALCIUM 9.7 mg/dL (8.5-10.4); CARBON DIOXIDE 23 mEq/l (22-31); CHLORIDE 103 mEq/L (97-110); CREATININE 0.5 mg/dL (0.6-1.0); GLOMERULAR FILTRATION RATE > 60; GLUCOSE 109 mg/dL (70-100); POTASSIUM 4.3 mEq/L (3.5-5.2); SODIUM 139 mEq/L (134-144)
[2017-03-30 01:54] LABS: COLOR YELLOW; LEUKOCYTE ESTERASE,URINE 1+ (NEGATIVE); NITRITE,URINE NEGATIVE (NEGATIVE)
[2017-03-30 02:05] LABS: MUCUS TRACE /lpf (NONE-1+)
[2017-03-30 02:57] LABS: ETHANOL SERUM < 10 mg/dL (0-10)
[2017-03-30] MEDS ORDERED: ZIPRASIDONE HCL 40 MG CAP PO ONE (04:00)
[2017-03-30] MEDS ORDERED: MULTIVITAMINS 1 EACH TAB PO ONE (09:00)
[2017-03-30] MEDS ORDERED: RANITIDINE HCL 150 MG/10 ML UDCUP PO SCH (09:00)
[2017-03-30] MEDS ORDERED: CLOPIDOGREL BISULFATE 75 MG TAB PO ONE (09:00)
[2017-03-30] MEDS ORDERED: URSODIOL 300 MG CAP PO SCH (09:00)
[2017-03-30] MEDS ORDERED: METOPROLOL TARTRATE 25 MG TAB PO ONE (09:00)
[2017-03-30 11:26] VITALS: RESP 18; TEMP 98.4
[2017-03-30 18:48] VITALS: BP 137/59; PULSE 88; O2SAT 93
[2017-03-30] MEDS ORDERED: DIVALPROEX ER 250 MG TAB PO SCH (21:00)
== END 2017-03-30 18:58 ==
DX: S60.221A Contusion of right hand, initial encounter (principal); S50.12XA Contusion of left forearm, initial encounter; F31.9 Bipolar disorder, unspecified; Z79.01 Long term (current) use of anticoagulants; Z79.82 Long term (current) use of aspirin; X58.XXXA Exposure to other specified factors, initial encounter
CPT/HCPCS: 80305; G0480

== ENCOUNTER → 2017-10-10 | Outpatient (CLI) | payer OTHER | LOC: FIMAGING 11:33 | PROVIDERS: ATTEND Family Medicine | DX: Z12.31 Encounter for screening mammogram for malignant neoplasm of breast (principal) | CPT/HCPCS: G0202 ==

== ENCOUNTER → 2018-02-20 | Outpatient (CLI) | payer OTHER | LOC: FIMAGING 13:35 | PROVIDERS: ATTEND Family Medicine | DX: Z13.820 Encounter for screening for osteoporosis (principal); M81.0 Age-related osteoporosis without current pathological fracture; M48.56XA Collapsed vertebra, not elsewhere classified, lumbar region, initial encounter for fracture; M48.54XA Collapsed vertebra, not elsewhere classified, thoracic region, initial encounter for fracture; Z78.0 Asymptomatic menopausal state ==

== ENCOUNTER 2018-04-24 14:32 | Emergency (ER) | payer OTHER ==
--- NOTE | 2018-04-24 14:38 | EDPHY ---
H & P Time Seen by Provider: 04/24/18 14:37 HPI/ROS: CHIEF COMPLAINT: Scalp contusion HISTORY OF PRESENT ILLNESS: The patient is a 67-year-old female who was trying to throw a garbage bag in the dumpster when she lost her balance fell back and hit the back of her head on the ground. She has a abrasion/hematoma to the right occiput. No loss of consciousness. No neck pain. She does take Plavix. She denies other injuries. She has been ambulatory. No headache, no nausea vomiting. No seizure-like activity. REVIEW OF SYSTEMS: Constitutional: denies: chills, fever, recent illness, recent injury EENTM: denies: blurred vision, double vision, nose congestion Respiratory: denies: cough, shortness of breath Cardiac: denies: chest pain, irregular heart rate, lightheadedness, palpitations Gastrointestinal/Abdominal: denies: abdominal pain, diarrhea, nausea, vomiting, blood streaked stools Genitourinary: denies: dysuria, frequency, hematuria, pain Musculoskeletal: denies: joint pain, muscle pain Skin: denies: lesions, rash, jaundice, bruising Neurological: See HPI denies: headache, numbness, paresthesia, tingling, dizziness, weakness Hematologic/Lymphatic: denies: blood clots, easy bleeding, easy bruising Immunologic/allergic: denies: HIV/AIDS, transplant EXAM: GENERAL: Well-appearing, well-nourished and in no acute distress. HEAD: Small hematoma and abrasion to right occiput, EYES: Pupils equal round and reactive to light, extraocular movements intact, sclera anicteric, conjunctiva are normal. ENT: TMs normal, nares patent, oropharynx clear without exudates. Moist mucous membranes. NECK: Normal range of motion, supple without lymphadenopathy or JVD. LUNGS: Breath sounds clear to auscultation bilaterally and equal. No wheezes rales or rhonchi. HEART: Regular rate and rhythm without murmurs, rubs or gallops. ABDOMEN: Soft, nontender, normoactive bowel sounds. No guarding, no rebound. No masses appreciated. BACK: No CVA tenderness, no spinal tenderness, step-offs or deformities EXTREMITIES: Normal range of motion, no pitting or edema. No clubbing or cyanosis. NEUROLOGICAL: Cranial nerves II through XII grossly intact. Normal speech, normal gait. 5/5 strength, normal movement in all extremities, normal sensation PSYCH: Normal mood, normal affect. SKIN: Warm, dry, normal turgor, no visible rashes or lesions. Source: Patient Exam Limitations: No limitations - Personal History Tetanus Vaccine Date: 2010 - Medical/Surgical History Hx Asthma: No Hx Chronic Respiratory Disease: No Hx Diabetes: No Hx Cardiac Disease: Yes Hx Renal Disease: No Hx Cirrhosis: No Hx Alcoholism: No Hx HIV/AIDS: No Hx Splenectomy or Spleen Trauma: No Other PMH: HTN, Depression, Hypothyroid, bipolar, retinal detachment,. OR 12/15 - Social History Smoking Status: Never smoked Constitutional: Initial Vital Signs Temperature (C) 36.6 C 04/24/18 14:43 Heart Rate 71 04/24/18 14:43 Respiratory Rate 18 04/24/18 14:43 Blood Pressure 161/109 H 04/24/18 14:43 O2 Sat (%) 92 04/24/18 14:43 O2 Delivery Mode Room Air Allergies/Adverse Reactions: lithium [Wilk[place]] Allergy (Verified 04/24/18 14:45) Home Medications: Medication Instructions Recorded Aspirin [Aspirin 81mg (*)] 81 mg PO HS 02/25/17 Atorvastatin Calcium [Lipitor 10 10 mg PO HS 02/25/17 mg (*)] Clopidogrel Bisulfate [Plavix (*)] 75 mg PO DAILY 02/25/17 Herbals/Supplements -Info Only 1 ea PO DAILY 02/25/17 Levothyroxine [Synthroid 137 mcg 137 mcg PO HS 02/25/17 (*)] Metoprolol Tartrate [Lopressor 25 25 mg PO BID 02/25/17 mg (*)] Multivitamins [Multivitamin (*)] 1 each PO DAILY 02/25/17 Nortriptyline HCl [Pamelor 25 mg 25 mg PO HS 02/25/17 (*)] Ranitidine HCl [Zantac 75] 75 mg PO BID 02/25/17 Ursodiol [Actigall 300MG (*)] 900 mg PO DAILY 02/25/17 Ziprasidone HCl [Geodon 40MG (*)] 40 mg PO HS 02/25/17 Medical Decision Making - Diagnostics Imaging Results: Imaging Impressions Head CT 04/24/18 14:37 Impression: 1. Moderate atrophy. 2. No acute hemorrhage, hydrocephalus, or mass effect. 3. Cerebrovascular atherosclerosis. 4. No definite acute infarct. 5. Mild microvascular ischemic gliosis. 6. Right parietal scalp hematoma without skull fracture. 7. No epidural or subdural hematoma. Findings and recommendations discussed with Emergency Department physician, MARY FERGUSON at 15:40 hour, 04/24/2018. Final report concurs with initial preliminary interpretation. Imaging: Discussed imaging studies w/ call specialist Radiologist ED Course/Re-evaluation: Abrasion was cleaned and bandaged. It does not require sutures. I will obtain a CT scan to evaluate for fracture or intracranial injury. Head CT ordered in this adult patient for trauma for the following indication: Age greater than 65 [address] results. The patient is reassured. She declines further workup or treatment at this time. She is eager to go home. She is talking on the phone with her ride. Differential Diagnosis: Partial list of the Differential diagnosis considered include but were not limited to; contusion, abrasion, concussion and although unlikely based on the history and physical exam, I also considered fracture, intracranial hemorrhage, neck injury. I discussed these differential diagnoses and the plan with the patient as well as the usual and expected course. The patient understands that the diagnosis is provisional and that in medicine we are not always correct and that further workup is often warranted. Usual and customary warnings were given. All of the patient's questions were answered. The patient was instructed to return to the emergency department should the symptoms at all worsen or return, otherwise to followup with the physician as we discussed. Departure - Departure Disposition: Home, Routine, Self-Care Clinical Impression: Abrasion Scalp hematoma Qualifiers: Encounter type: initial encounter Qualified Code(s): S00.03XA - Contusion of scalp, initial encounter Condition: Good Instructions: Hematoma (ED) Referrals: Patient,NotPresent [Unknown] - As per Instructions
[2018-04-24 16:28] VITALS: BP 161/104
== END 2018-04-24 16:39 | disposition home or self-care (01) ==
LOC: EDUNIT#
DX: S00.03XA Contusion of scalp, initial encounter (principal); I25.2 Old myocardial infarction; I10 Essential (primary) hypertension; Z79.82 Long term (current) use of aspirin; W01.198A Fall on same level from slipping, tripping and stumbling with subsequent striking against other object, initial encounter; Y99.8 Other external cause status; Y93.89 Activity, other specified

== ENCOUNTER 2018-04-29 17:03 | Emergency (ER) | payer OTHER ==
--- NOTE | 2018-04-29 17:13 | EDPHY ---
H & P Stated Complaint: fall today, left hip pain Time Seen by Provider: 04/29/18 17:12 - Personal History Current Tetanus/Diphtheria Vaccine: Yes Current Tetanus Diphtheria and Acellular Pertussis (TDAP): Yes Tetanus Vaccine Date: 2010 - Medical/Surgical History Hx Asthma: No Hx Chronic Respiratory Disease: No Hx Diabetes: No Hx Cardiac Disease: Yes Hx Renal Disease: No Hx Cirrhosis: No Hx Alcoholism: No Hx HIV/AIDS: No Hx Splenectomy or Spleen Trauma: No Other PMH: HTN, Depression, Hypothyroid, bipolar, retinal detachment,. ID 12/15 - Social History Smoking Status: Never smoked Constitutional: Initial Vital Signs Temperature (C) 36.7 C 04/29/18 17:07 Heart Rate 67 04/29/18 17:07 Respiratory Rate 18 04/29/18 17:07 Blood Pressure 187/137 H 04/29/18 17:07 O2 Sat (%) 97 04/29/18 17:07 O2 Delivery Mode Room Air Allergies/Adverse Reactions: lithium [Alicia] Allergy (Verified 04/29/18 17:07) Home Medications: Medication Instructions Recorded Aspirin [Aspirin 81mg (*)] 81 mg PO HS 02/25/17 Atorvastatin Calcium [Lipitor 10 10 mg PO HS 02/25/17 mg (*)] Clopidogrel Bisulfate [Plavix (*)] 75 mg PO DAILY 02/25/17 Herbals/Supplements -Info Only 1 ea PO DAILY 02/25/17 Levothyroxine [Synthroid 137 mcg 137 mcg PO HS 02/25/17 (*)] Metoprolol Tartrate [Lopressor 25 25 mg PO BID 02/25/17 mg (*)] Multivitamins [Multivitamin (*)] 1 each PO DAILY 02/25/17 Nortriptyline HCl [Pamelor 25 mg 25 mg PO HS 02/25/17 (*)] Ranitidine HCl [Zantac 75] 75 mg PO BID 02/25/17 Ursodiol [Actigall 300MG (*)] 900 mg PO DAILY 02/25/17 Ziprasidone HCl [Geodon 40MG (*)] 40 mg PO HS 02/25/17 Medical Decision Making ED Course/Re-evaluation: CHIEF COMPLAINT: Left hip pain HISTORY OF PRESENT ILLNESS: 67-year-old female who has had many falls recently but seemed to be precipitated by precarious situations like standing on a ladder to throw garbage in a dumpster. She fell today from standing when she slipped and was off balance. She denies syncope. She has some mild pain in her left hip. Her neighbors were concerned about her and brought her here to the hospital for evaluation. She states she is able ambulate on the left hip but is getting more more difficult. She denies any other trauma whatsoever. REVIEW OF SYSTEMS: A 10 point review of systems was performed and is negative with the exception of the elements mentioned in the history of present illness. PHYSICAL EXAM: HR, BP, O2 Sat, RR. Temp noted General Appearance: Alert, well hydrated, appropriate, and non-toxic appearing. Head: Atraumatic without scalp tenderness or obvious injury Eyes: Pupils equal, round, reactive to light and accommodation, EOMI, no trauma , no injection. Ears: Clear bilaterally, no perforation, normal landmarks Nose: Atraumatic, no rhinorrhea, clear. Throat: There is no erythema or exudates, no lesions, normal tonsils, mucus membranes moist. Neck: Supple, 2+ carotid upstroke, nontender, no lymphadenopathy. Respiratory: No retractions, no distress, no wheezes, and no accessory muscle use. Lungs are clear to auscultation bilaterally. Cardiovascular: Regular rate and rhythm, no murmurs, rubs, or gallops. Bilateral carotid, radial, dorsalis pedis, and posterior tibial pulses intact. Good capillary refill all extremities. Gastrointestinal: Abdomen is soft, nontender, non-distended, no masses, no rebound, no guarding, no peritoneal signs. Musculoskeletal: Some pain in the left hip but patient has excellent straight leg raise and range of motion. It is somewhat painful when she bears weight. Otherwise, Normal active ROM of all extremities, atraumatic. Neurological: Alert, appropriate, and interactive. The patient has normal DTRs and non-focal cranial nerves, motor, sensory, and cerebellar exam. Skin: No rashes, good turgor, no nodules on palpation. Past medical history: Several orthopedic injuries Past surgical history: Noncontributory Family history: Noncontributory Social history: Single, retired, does not abuse tobacco drugs or alcohol DIAGNOSTICS/PROCEDURES/CRITICAL CARE TIME: Study: CT of the pelvis without contrast Indication: Left pain but can ambulate Results: CT scan of the bony pelvis was obtained. The results of the study are normal. The study was read by the radiologist, Dr. Justino Powers . I viewed the images myself on the PACS system. DIFFERENTIAL DIAGNOSIS: The differential diagnosis for the patient's trauma included but was not limited to intracranial injury, long bone and pelvic bone fractures, spinal injury, intra-abdominal injury, and intra-thoracic injury. MEDICAL DECISION MAKING: I am looking for an occult hip fracture with CT scan on this patient. I doubt she has a significant fracture as she can bear weight and she has very good range of motion with a little bit of pain. No other trauma. No other testing needed at this time. The pelvic CT is unremarkable for any occult or acute fracture. There are number of degenerative changes. We will discharge this patient follow-up with her primary care physician. Departure - Departure Disposition: Home, Routine, Self-Care Clinical Impression: Hip pain, left Condition: Good Instructions: Hip Pain (ED) Referrals: Gina Jain MD [Primary Care Provider] - As per Instructions
[2018-04-29 18:50] VITALS: BP 150/90
== END 2018-04-29 18:58 | disposition home or self-care (01) ==
DX: S79.912A Unspecified injury of left hip, initial encounter (principal); I10 Essential (primary) hypertension; I25.2 Old myocardial infarction; Z79.82 Long term (current) use of aspirin; W01.0XXA Fall on same level from slipping, tripping and stumbling without subsequent striking against object, initial encounter; Y99.8 Other external cause status; Y93.89 Activity, other specified

== ENCOUNTER 2018-05-06 20:04 | Inpatient (IN) | payer OTHER ==
--- NOTE | 2018-05-06 20:38 | EDPHY ---
HPI/HX/ROS/PE/MDM Narrative: CHIEF COMPLAINT: Admission for possible stroke. HISTORY OF PRESENT ILLNESS: This patient is an anticoagulated (Plavix) 67 year old female with history of [place] s/p stent placement presenting at the request of her primary care provider for admission for possible stroke. On 04/24, the patient fell backwards at her apartment complex, striking her head. She was seen at the emergency department at that time, and evaluated again 5 days later for another fall with hip pain Her sister at bedside states she has had frequent falls recently. Over the past week, she has had increased weakness, confusion, and forgetfulness. Her sister describes a "Rapid decline in physical abilities and mental acuity." The patient saw her primary care provider yesterday and was scheduled for an outpatient MRI which was completed this evening. Following this, staff at the [facility] called the patient to say they had arranged admission to [facility] for possible stroke, but the patient spoke to her log deckman and prefers admission here at [facility]. Currently, the patient feels "alright". She does complain of some mild dizziness and confusion as well as pain in her abdomen and hips. She has history of UTIs but UA yesterday at [facility] was reportedly negative. No fever, chills, chest pain, shortness of breath, palpitations, vomiting, diarrhea , urinary complaints, headache, lightheadedness. REVIEW OF SYSTEMS: Aside from elements discussed in the HPI, a comprehensive 10-point review of systems was reviewed and is negative. PAST MEDICAL HISTORY: History of FL 1.5 years ago s/p stent placement (Plavix). SOCIAL HISTORY: Sister at bedside. Lives in [place]. Retired. VITAL SIGNS: Reviewed by me GENERAL: Well-developed, well-nourished, resting with her head cocked to the right side and slumping toward the right. Sister reports this in new and unusual for the patient. Patient is able to hold head upright when asked, but drifts toward the right when not being reminded. HEENT: Atraumatic. Eyes: EOMI. No icterus, no injection. Mouth: moist mucous membranes. No erythema or lesions. Neck: supple with no adenopathy. LUNGS: Clear to auscultation bilaterally, no wheezes, rhonchi or rales. CARDIAC: Regular rate and rhythm, no rubs, murmurs or gallops. ABDOMEN: Soft, nontender, nondistended, bowel sounds normal. BACK: No CVA tenderness. EXTREMITIES: No trauma. No edema. Range of motion is normal throughout. NEURO: Alert and orientedt o person, place, and year. Not oriented to month. CN 2-12 intact except intermittent right sided facial droop. Right arm and right leg 4/5 strength. Some difficulty following commands with mild receptive aphasia. Mild dysarthria. SKIN: Warm and dry, no rash. PSYCHIATRIC: Normal mentation, no agitation. Portions of this note were transcribed by a medical collector. I personally performed a history, physical exam, medical decision making, and confirmed accuracy of information the transcribed note. ED Course: 67 y/o female presents for admission for possible stroke. Images from [employer] loaded into our PACS system. Formal report from [facility] was eventually obtained. This demonstrates a focal area of restricted diffusion in the left thalamus and posterior left internal capsule compatible with an acute/subacute infarct. Patients labs largely unremarkable. EKG sinus Patient's course discussed with Dr. Shraddha Mccall. Will admit to hospital. Further imaging studies of CTA of the head and neck requested by admitting service. MDM: Differential diagnoses the patient's presenting complaints was considered including but not limited to intracranial injury, TIA, ischemic cerebrovascular accident, hemorrhagic cerebrovascular accident, hypoglycemia, complex migraine , metastases, tumor, seizure, or electrolyte abnormality - Data Points Laboratory Results: Laboratory Results 05/06/18 20:45 05/06/18 20:45 05/06/18 05/06/18 05/06/18 20:45 20:45 20:45 WBC 9.07 10^3/uL 10^3/uL (3.80-9.50) RBC 4.24 10^6/uL 10^6/uL (4.18-5.33) Hgb 14.2 g/dL g/dL (12.6-16.3) Hct 41.6 % % (38.0-47.0) MCV 98.1 fL fL (81.5-99.8) MCH 33.5 pg pg (27.9-34.1) MCHC 34.1 g/dL g/dL (32.4-36.7) RDW 15.8 % H % (11.5-15.2) Plt Count 273 10^3/uL 10^3/uL (150-400) MPV 10.3 fL fL (8.7-11.7) Neut % (Auto) 66.5 % % (39.3-74.2) Lymph % (Auto) 14.0 % L % (15.0-45.0) [place] % (Auto) 15.9 % H % (4.5-13.0) Eos % (Auto) 0.3 % L % (0.6-7.6) Baso % (Auto) 0.8 % % (0.3-1.7) Nucleat RBC Rel Count 0.0 % % (0.0-0.2) Absolute Neuts (auto) 6.03 10^3/uL 10^3/uL (1.70-6.50) Absolute Lymphs (auto) 1.27 10^3/uL 10^3/uL (1.00-3.00) Absolute Monos (auto) 1.44 10^3/uL H 10^3/uL (0.30-0.80) Absolute Eos (auto) 0.03 10^3/uL 10^3/uL (0.03-0.40) Absolute Basos (auto) 0.07 10^3/uL 10^3/uL (0.02-0.10) Absolute Nucleated RBC 0.00 10^3/uL 10^3/uL (0-0.01) Immature Gran % 2.5 % H % (0.0-1.1) Immature Gran # 0.23 10^3/uL H 10^3/uL (0.00-0.10) PT 13.4 SEC SEC (12.0-15.0) INR 1.00 (0.83-1.16) Sodium 135 mEq/L mEq/L (135-145) Potassium 3.9 mEq/L mEq/L (3.3-5.0) Chloride 102 mEq/L mEq/L (97-110) Carbon Dioxide 24 mEq/l mEq/l (22-31) Anion Gap 9 mEq/L mEq/L (8-16) BUN 23 mg/dL mg/dL (7-23) Creatinine 0.6 mg/dL mg/dL (0.6-1.0) Estimated GFR > 60 Glucose 124 mg/dL H mg/dL (70-100) Calcium 9.1 mg/dL mg/dL (8.5-10.4) Total Bilirubin 1.1 mg/dL mg/dL (0.1-1.4) Conjugated Bilirubin 0.7 mg/dL H mg/dL (0.0-0.5) Unconjugated Bilirubin 0.4 mg/dL mg/dL (0.0-1.1) AST 100 IU/L H IU/L (14-46) ALT 71 IU/L H IU/L (9-52) Alkaline Phosphatase 150 IU/L H IU/L (38-126) Troponin I Pending Total Protein 6.7 g/dL g/dL (6.3-8.2) Albumin 3.8 g/dL g/dL (3.5-5.0) Lipase 23 IU/L IU/L (23-300) Medications Given: Discontinued Medications Sodium Chloride (Ns) 1,000 mls @ 0 mls/hr IV EDNOW ONE; Wide Open PRN Reason: Protocol Stop: 05/06/18 20:48 Last Admin: 05/06/18 20:48 Dose: 1,000 mls General Time Seen by Provider: 05/06/18 20:17 Initial Vital Signs: Initial Vital Signs Temperature (C) 36.5 C 05/06/18 20:09 Heart Rate 84 05/06/18 20:09 Respiratory Rate 20 05/06/18 20:09 Blood Pressure 181/101 H 05/06/18 20:09 O2 Sat (%) 95 05/06/18 20:09 O2 Delivery Mode Room Air Allergies/Adverse Reactions: lithium [Clay] Allergy (Verified 05/06/18 20:08) Home Medications: Medication Instructions Recorded Clopidogrel Bisulfate [Plavix (*)] 75 mg PO DAILY 02/25/17 Metoprolol Tartrate [Lopressor 25 25 mg PO BID 02/25/17 mg (*)] Multivitamins [Multivitamin (*)] 1 tab PO DAILY 02/25/17 Nortriptyline HCl [Pamelor 25 mg 25 mg PO HS 02/25/17 (*)] Ursodiol [Actigall 300MG (*)] 300 mg PO TID 02/25/17 Divalproex ER [Depakote ER 500 MG 500 mg PO BID 05/06/18 (*)] Herbals/Supplements -Info Only 1 ea PO DAILY 05/06/18 Ranitidine HCl 150 mg PO BID 05/06/18 Ziprasidone HCl [Geodon 20MG (*)] 20 mg PO HS 05/06/18 Atorvastatin Calcium [Lipitor 40 20 mg PO DAILY 05/07/18 mg (*)] Acetaminophen [Tylenol 325mg (*)] 650 mg PO Q4HRS PRN tab 05/09/18 Aspirin EC [Aspirin EC 325 mg (*)] 325 mg PO DAILY tab 05/09/18 Levothyroxine [Synthroid 150 mcg 150 mcg PO DAILY AT 6AM tab 05/09/18 (*)] Lisinopril [Zestril 5 mg (*)] 5 mg PO DAILY tab 05/09/18 Polyethylene Glycol 3350 [Miralax 17 gm PO DAILY PRN pkt 05/09/18 17 gm (*)] Sennosides/Docusate Sodium 1 - 2 tab PO BID tab 05/09/18 [Senokot-S] Departure - Departure Disposition: [facility] Acute Clinical Impression: Confusion, Acute ischemic stroke, COGNITIVE DEFICIT Condition: Fair
[2018-05-06] MEDS ORDERED: NS 1,000 ML IV ONE (20:47)
[2018-05-06 20:52] LABS: PLATELET COUNT 273 10^3/uL (150-400)
--- NOTE | 2018-05-06 20:56 | CPEKG ---
Heart Rate: 74 RR Interval: 811 P-R Interval: 168 QRSD Interval: 102 QT Interval: 436 QTC Interval: 484 P [place]: 10 QRS [place]: 15 T Wave [place]: 3 EKG Severity - ABNORMAL ECG - EKG Impression: SINUS RHYTHM EKG Impression: PROBABLE LEFT VENTRICULAR HYPERTROPHY Electronically Signed By: Roverto Mcmanus 11-May-2018 16:35:14
[2018-05-06 21:00] LABS: PROTIME(PATIENT) 13.4 SEC (12.0-15.0)
[2018-05-06] MEDS ORDERED: IOPAMIDOL (ISOVUE 370) 100 ML BTL IV ONE (21:45)
[2018-05-06] MEDS ORDERED: LABETALOL HCL 5 MG/ML 20 ML MDV IVP PRN (21:54)
[2018-05-06] MEDS ORDERED: ONDANSETRON DISINTEGRATING 4 MG TAB PO PRN (21:54)
[2018-05-06] MEDS ORDERED: oxyCODONE IR 5 MG TAB PO PRN (21:54)
[2018-05-06] MEDS ORDERED: ONDANSETRON 4 MG/2 ML VIAL IVP PRN (21:54)
[2018-05-06] MEDS ORDERED: PROMETHAZINE HCL 25 MG/ML INJ IVP PRN (21:54)
[2018-05-06] MEDS: ACETAMINOPHEN 325 MG TAB PO PRN (23:08)
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
[2018-05-07] MEDS: ENOXAPARIN 40 MG/0.4 ML SYR SC SCH (07:48)
[2018-05-07] MEDS: ACETAMINOPHEN 325 MG TAB PO PRN ×3 (08:26→21:29)
[2018-05-07] MEDS: FAMOTIDINE 20 MG TAB PO SCH ×2 (08:31→21:25)
[2018-05-07] MEDS: DIVALPROEX ER 500 MG TAB PO SCH ×2 (08:31→21:23)
[2018-05-07] MEDS: CLOPIDOGREL BISULFATE 75 MG TAB PO SCH (08:31)
[2018-05-07] MEDS: MULTIVITAMINS 1 EACH TAB PO SCH (08:33)
[2018-05-07] MEDS: METOPROLOL TARTRATE 25 MG TAB PO SCH ×2 (08:33→21:26)
[2018-05-07] MEDS ORDERED: LEVOTHYROXINE 137 MCG TAB PO SCH (09:00)
[2018-05-07] MEDS ORDERED: ASPIRIN 81 MG CHEWABLE TAB PO SCH (09:00)
[2018-05-07] MEDS ORDERED: Herbals/Supplements -Info Only PO SCH (09:00)
[2018-05-07] MEDS: URSODIOL 300 MG CAP PO SCH ×3 (09:57→21:28)
--- NOTE | 2018-05-07 12:22 | HOSPPROG ---
Hospitalist Progress Note Assessment/Plan: Assessment: 67-year-old female presents with acute and subacute CVA Plan: 1. CVA. Acute and subacute, new problem this provider, further workup indicated. Evidence of insult in the left thalamic and internal capsule on MRI , with symptoms including cognitive impairment, drifting to the right, recurrent falls and inability to complete activities of daily living -CT angiogram demonstrating plaque at the bilateral bifurcations but no focal stenosis -monitor on telemetry for atrial fibrillation (EKG demonstrating Q-wave in lead 3, normal sinus rhythm, LVH) as these insults could either be cardioembolic or lacunar -getting transthoracic echocardiogram -if no evidence of AFib or left atrial thrombi, will get 30 day event monitor and outpatient follow-up to cardiology -discussed with Dr. Kunal Bush, he recommends increasing patient's aspirin to 325 daily, continuing Plavix, continuing statin, and holding on empirically anticoagulating until above information obtained -get PT, OT, inpatient rehab assessments 2. CAD. Chronic, last cardiac stent approximately 1.5 years ago, continue on dual anti-platelet therapy as well as statin per above -A1c pending -LDL 27 3. Hypothyroidism. Currently under replaced with TSH of 13.1, could certainly be contributing to some of her cognitive symptoms which have been progressively worsening leading up to this hospitalization -will increase her Synthroid to 150 mcg daily, recommend rechecking TSH in 6 weeks 4. Hypertension. Chronic, may be contributing to small vessel disease and resultant lacunar infarcts, currently on beta-mohit, monitor hypertension and consider adding an additional agent if consistently greater than 140 5. Transaminitis. Unclear etiology, potentially hepatic steatosis, repeat liver panel in a.m. Diet. Regular Prophylaxis. High risk patient, her SCDs, holding pharm given potential for hemorrhagic conversion Code. Full Disposition. Anticipated discharge uncertain, requiring therapy assessments today and potential retirement facility Objective: Vital Signs Temp Pulse Resp BP Pulse Ox 36.7 C 63 16 143/79 H 94 05/07/18 11:52 05/07/18 11:52 05/07/18 11:52 05/07/18 11:52 05/07/18 11:52 05/06/18 05/07/18 05/08/18 05:59 05:59 05:59 Intake Total 1000 200 Output Total 500 Balance 500 200 PT 13.4 SEC (12.0-15.0) 05/06/18 20:45 INR 1.00 (0.83-1.16) 05/06/18 20:45 ICD10 Worksheet Patient Problems: Problems Problem Status Onset Acute ischemic stroke Acute Confusion Acute AMI (acute myocardial infarction) Acute Fibula fracture Acute Fracture of right tibial plateau Acute Leukocytosis, unspecified Acute Ribs, multiple fractures Acute
--- NOTE | 2018-05-07 12:36 | GCON ---
[f rep st] CONSULTATION NEUROLOGY CONSULT DATE OF CONSULTATION: 05/07/2018 REFERRING PHYSICIAN: Shraddha Mccall MD CHIEF COMPLAINT: Stroke. HISTORY OF PRESENT ILLNESS: Lindsay is a 67-year-old lady with multiple chronic medical problems including coronary artery disease status post CA and stent placement. She has hypertension, hypothyroidism, and bipolar disorder and has been on psychotropics for many years. Previously she was living independently in an apartment apparently. In terms of vascular prophylaxis, she was taking Plavix 75 mg and aspirin 81 mg daily. She has had cognitive changes over some years according to the medical record and by her sister's report. However, since around April 24 she has had a more prominent decline with decreased balance, veering to the right and, per the patient, acute on chronic memory changes. She feels like her memory is worse than usual. She was seen at the [facility] and had an MRI. The MRI apparently showed acute and subacute infarct and she was referred to the ED for further evaluation. I was unable to view the images or the report of this MRIs as it was done at an outside facility and I cannot find the report here in the paper records. I do note that Dr. Mccall reviewed the report and noted the MRI showed acute and subacute infarcts of the left thalamus and left internal capsule. REVIEW OF SYSTEMS: A 10-point review was done only pertinent to the HPI. For past medical history, surgical history, family history, social history, medications, and allergies, please see Dr. Mccall note. PHYSICAL EXAMINATION: VITAL SIGNS: When patient was in the emergency department she had blood pressures of 180s/100s, which was treated and now in the 130s/70s. She is afebrile at 36.4, respirations 16. GENERAL: The patient was having a surface echocardiogram during my interview and exam. She was awake and could be alerted by verbal stimulation, but was somewhat somnolent throughout the conversation. NEUROLOGIC: On cranial nerve exam, there was no obvious facial weakness. Extraocular movements were full. On motor exam, there was no convulsive activity or myoclonus. She was somewhat immobilized as she was having the echo procedure and needs to stay still. IMPRESSION AND PLAN: 1. Stroke. 2, Thyroid disorder The medical record documents subacute and acute stroke in her left thalamus and internal capsule. This distribution could either be a small vessel lacunar- type mechanism, hypertensive emergency, or cardioembolic. The fact that there are more than 1 foci of acute stroke, certainly raises the possibility of a cardioembolic event. She was counseled at length. Going forward, I recommend we increase her aspirin from 81 mg to 325 mg daily coated with meals. We discussed potential risks, benefits, and alternatives of this dosage increase of aspirin. She will continue Plavix 75 mg daily as well. She will continue her other cardiovascular medications. She had a CTA of the head and neck, which it did not show any acute thrombus or significant carotid disease. There has been no atrial fibrillation noted on ECGs as far as I am aware of. She is having echocardiogram presently. If there is no evidence of intracardiac thrombus, then I would recommend outpatient 30-day event monitoring for possible paroxysmal atrial fibrillation and tight blood pressure control. If 30 day monitor is negative, we could certainly consider an implantable loop monitor. She will likely go to inpatient rehabilitation and disposition from there will be decided at that time. I would be happy to see Lindsay as an outpatient to follow up on all of the above in terms of the stroke workup and treatment. The patient's TSH is elevated and treatment of her hypothyroidism may help baseline cognition. I communicated with the primary hospitalist team, Dr. Thakur, regarding the above. We are in agreement with the plan. Neurology will continue to follow this very pleasant patient as needed. Please do not hesitate to call if there are any changes in neurologic status or questions with this patient. We change service tomorrow morning and Dr. Pederson will be on the hospital service. Seventy minutes of floor time reviewing records, imaging, direct counseling, and coordination of care. /[id number]/MODL MTDD
--- NOTE | 2018-05-07 12:59 | ECHO ---
[email or web address] [address] [address] Main: [phone] Fax: [email or web address] Echocardiogram Name: ADOLFO REYES MR#: [id number] Study Date: 05/07/2018 Study Time: 11:14 AM Date of : 1950 Age: 67 year(s) Height: 144.8 cm (57 in.) Weight: 58.97 kg (130 lb.) BSA: 1.5 m2 Gender: Female Examination: Echo with Agitated Saline Indication: ischemic stroke Image Quality: Adequate Contrast: I.V. dose of agitated saline Requested by: Shraddha Mccall BP: 135 mmHg/74 mmHg Heart Rate: Rhythm: Indication: ischemic stroke Procedure Staff Paralegal Specialist: Caity Brito [facility] Reading Physician: Victor Hugo Robles MD Requesting Provider: Conclusions: Normal size left ventricle. Asymmetrical septal LV hypertrophy. Normal global systolic LV function. EF is 59 %. An agitated saline study was performed and was negative for intracardiac shunting. Moderate aortic valve regurgitation is present. Mild to moderate tricuspid valve regurgitation. Dilated ascending aorta measuring 3.9 cm. Measurements: Chambers Valvular Assessment AV/MV Valvular Assessment TV/PV Normal Normal Normal Name Value Range Name Value Range Name Value Range Ao Melinda (MM): 3.2 cm (2.2 cm-3.7 AV Vmax: 1.51 m/s (1 m/s-1.7 TR Vmax: 3.03 mm/s ( - ) cm) m/s) TR PGmax: 37 mmHg ( - ) IVSd (2D): 1.0 cm (0.6 cm-1.1 AV maxP mmHg ( - ) syst. PAP: 42 mmHg ( - ) cm) LVOT Vmax: 0.98 m/s (0.7 m/s-1.1 PV Vmax: 0.92 m/s (0.6 m/s-0.9 LVDd (2D): 3.8 cm (3.9 cm-5.3 m/s) m/s) cm) AR (PHT): 514 ms ( - ) PV PGmax: 3 mmHg ( - ) LVDs (2D): 2.2 cm (2.1 cm-4 MV E Vmax: 0.40 m/s ( - ) cm) MV A Vmax: 1.07 m/s ( - ) LVPWd (2D): 0.7 cm ( - ) MV E/A: 0.37 ( - ) LVEF (BP): 59 % (>=55 %) RVDd(2D): 2.7 cm (1.9 cm-3.8 cmmm) Continued Measurements: Chambers Valvular Assessment AV/MV Valvular Assessment TV/PV Name Value Name Value Name Value Patient: ADOLFO REYES Study Date: 05/07/2018 Page 1 of 2 11:14 AM LADs Lon.7 cm MV DecTime: 208 m/s CVP (est.): 5 mmHg LA Area: 12.4 cm2 MV E' Septal: 0.04 m/s LA Volume: 33 ml MV E/E' Septal: 11.20 LA Volume Index: 22.0 ml/m2 MV E/E' Lateral: 7.60 AR Vmax: 4.23 cm/s Additional Vessels Name Value Ao Ascendin.9 cm Ao Arch: 3.6 cm Findings: Left Ventricle: Normal size left ventricle. Asymmetrical septal LV hypertrophy. Normal global systolic LV function. EF is 59 %. No regional wall motion abnormality. Normal diastolic LV function. Right Ventricle: Normal size right ventricle. Normal RV function. Left Atrium: The left atrium is normal in size. An agitated saline study was performed and was negative for intracardiac shunting. Right Atrium: The right atrium is normal in size. Mitral Valve: The mitral valve is normal in appearance and function. Trivial to mild mitral regurgitation. No mitral stenosis is present. Aortic Valve: The aortic valve is tri-leaflet. Moderate aortic valve regurgitation is present. No aortic valve stenosis is present. Tricuspid Valve: The tricuspid valve is normal in appearance and function. Mild to moderate tricuspid valve regurgitation. Right ventricular systolic pressure measures 42mmHg. The pulmonary artery pressure is mildly increased. Pulmonic Valve: The pulmonic valve is normal in appearance. There is no pulmonic regurgitation seen. Aorta: Normal size aortic root measuring 3.2 cm. Dilated ascending aorta measuring 3.9 cm. Normal size aortic arch measuring 3.6 cm. IVC: The IVC is normal sized. Pericardium: No pericardial effusion. (No Signature Object) Patient: ADOLFO REYES Study Date: 05/07/2018 Page 2 of 2 11:14 AM [id number]
[2018-05-07] MEDS: ATORVASTATIN CALCIUM 40 MG TAB PO SCH (14:32)
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
--- NOTE | 2018-05-07 15:19 | PDMN ---
Medical Necessity Medical necessity: Pt meets IP criteria per MD; est los >2 mn for sarah/tx of acute & subacute CVA w/progressive weakness, recurrent falls, memory loss & speech changes; requiring further workup/monitoring, Neuro consult & therapies; hx CAD, HTN & RLE reconstructions; per H&P & order 05/06/18
[2018-05-07] MEDS ORDERED: POLYETHYLENE GLYCOL 3350 17 GM PKT PO PRN (15:58)
[2018-05-07] MEDS ORDERED: BISACODYL 10 MG SUPP PR PRN (15:58)
[2018-05-07] MEDS ORDERED: MAGNESIUM HYDROXIDE 30 ML UDCUP PO PRN (15:58)
[2018-05-07] MEDS ORDERED: LACTULOSE 20 GM/30 ML UDCUP PO PRN (15:58)
[2018-05-07] MEDS ORDERED: SENNOSIDES/DOCUSATE SODIUM TAB PO ONE (16:37)
[2018-05-07] MEDS: SENNOSIDES/DOCUSATE SODIUM TAB PO SCH (16:38)
[2018-05-07] MEDS: NORTRIPTYLINE HCL 25 MG CAP PO SCH (21:26)
[2018-05-07] MEDS: ZIPRASIDONE HCL 20 MG CAP PO SCH (21:27)
[2018-05-08] MEDS: LEVOTHYROXINE 150 MCG TAB PO SCH (05:41)
[2018-05-08] MEDS: ACETAMINOPHEN 325 MG TAB PO PRN ×2 (06:02→13:28)
[2018-05-08] MEDS: METOPROLOL TARTRATE 25 MG TAB PO SCH ×2 (08:29→22:36)
[2018-05-08] MEDS: CLOPIDOGREL BISULFATE 75 MG TAB PO SCH (08:30)
[2018-05-08] MEDS: DIVALPROEX ER 500 MG TAB PO SCH ×2 (08:30→22:35)
[2018-05-08] MEDS: FAMOTIDINE 20 MG TAB PO SCH ×2 (08:30→22:34)
[2018-05-08] MEDS: ASPIRIN EC 325 MG TAB PO SCH (08:30)
[2018-05-08] MEDS: ATORVASTATIN CALCIUM 40 MG TAB PO SCH (08:31)
[2018-05-08] MEDS: SENNOSIDES/DOCUSATE SODIUM TAB PO SCH ×2 (08:31→22:34)
[2018-05-08] MEDS: ENOXAPARIN 40 MG/0.4 ML SYR SC SCH (08:32)
[2018-05-08] MEDS: MULTIVITAMINS 1 EACH TAB PO SCH (08:32)
[2018-05-08] MEDS: LISINOPRIL 5 MG TAB PO SCH (13:27)
--- NOTE | 2018-05-08 13:53 | HOSPPROG ---
Hospitalist Progress Note Assessment/Plan: Assessment: 67-year-old female presents with acute and subacute CVA Plan: 1. CVA. Acute and subacute,evidence of insult in the left thalamic and internal capsule on MRI, with symptoms including cognitive impairment, drifting to the right, recurrent falls and inability to complete activities of daily living -CT angiogram demonstrating plaque at the bilateral bifurcations but no focal stenosis -no afib on tele (personally interpreted) -get 30 day event monitor and outpatient follow-up to cardiology (will need to schedule outpatient consultation/referral) -counseled patient/sister that neuro recommends increasing patient's aspirin to 325 daily, continuing Plavix, continuing statin, and holding on empirically anticoagulating until above information obtained -patient receiving PT/OT assessments, stands to benefit significantly from acute , intensive rehab therapy, as it is suspected that her recent decline is related to CVA, and [facility] seems to be most appropriate given that she can likely tolerate 3+hrs of therapy/day 2. CAD. Chronic, last cardiac stent approximately 1.5 years ago, continue on dual anti-platelet therapy as well as statin per above -A1c 5/8% -LDL 27 3. Hypothyroidism. Currently under replaced with TSH of 13.1, could certainly be contributing to some of her cognitive symptoms which have been progressively worsening leading up to this hospitalization, may be 2/2 patient taking pill w/ food prior to hospitalization -d/w sister, will increase her Synthroid to 150 mcg daily and administer on empty stomach, recommend more rapid TSH repeat 2 weeks) than we would normally perform b/c this increased dosage + proper administration may result in more rapid supplementation and she may need to reduce dosage thereafter 4. Hypertension. Chronic, may be contributing to small vessel disease and resultant lacunar infarcts, currently on beta-mohit -SBP not at goal (<140), start lisinopril 5 and gauge effect 5. Transaminitis. Chronic, 2/2 hepatic steatosis 6. Suspected abd rectus strain. Abd pain 2/2 tensing abd muscles when sitting upright, 2/2 recent traumatic falls [employer], benign exam when supine -heat pad PRN, transfer w/ assist 7. Suspected atelectasis. Acute, start IS, wean to room air Diet. Regular Prophylaxis. High risk patient, start lovenox 40 Code. Full Disposition. Anticipated discharge 05/09, requiring therapy assessments and IPR evaluation. Subjective: patient w/ mild abd pain w/ sitting upright Objective: Vital Signs Temp Pulse Resp BP Pulse Ox 35.8 C L 64 15 148/80 H 96 05/08/18 12:00 05/08/18 12:00 05/08/18 12:00 05/08/18 12:00 05/08/18 12:00 05/07/18 05/08/18 05/09/18 05:59 05:59 05:59 Intake Total 1000 400 Output Total 500 600 500 Balance 500 -200 -500 PT 13.4 SEC (12.0-15.0) 05/06/18 20:45 INR 1.00 (0.83-1.16) 05/06/18 20:45 - Time Spent With Patient Time Spent with Patient: greater than 35 minutes Time Spent with Patient: Greater than 35 minutes spent on this patients care, greater than 50% of time spent counseling, educating, and coordinating care regarding the above mentioned plan. - Physical Exam Constitutional: no apparent distress, appears nourished, not in pain Cardiovascular: regular rate and rhythym, no murmur, rub, or gallop Respiratory: no respiratory distress, inspiratory crackles (bilat bases), No expiratory wheeze, No respiratory distress Gastrointestinal: normoactive bowel sounds, soft, non-tender abdomen, no palpable masses, No guarding, No distension Neurologic: AAOx3, No facial droop Psychiatric: not anxious, flat affect, No agitated ICD10 Worksheet Patient Problems: Problems Problem Status Onset AMI (acute myocardial infarction) Acute Fracture of right tibial plateau Acute Fibula fracture Acute Leukocytosis, unspecified Acute Ribs, multiple fractures Acute Confusion Acute Acute ischemic stroke Acute
[2018-05-08] MEDS: URSODIOL 300 MG CAP PO SCH ×4 (14:36→22:35)
--- NOTE | 2018-05-08 15:09 | ASMTCMCOM ---
CM Note CM Note Notes: PT/OT continue to recommend Inpatient Rehab. They are evaluating patient for admission. I called her sister/ALIYAH Fuentes to give an update and left a message. We will continue to follow. Date Signed: 05/08/2018 03:08 PM Electronically Signed By:Lizy Cleveland RN
[2018-05-08] MEDS ORDERED: LORazepam 0.5 MG TAB PO PRN (16:52)
[2018-05-08] MEDS: ZIPRASIDONE HCL 20 MG CAP PO SCH (22:34)
[2018-05-08] MEDS: NORTRIPTYLINE HCL 25 MG CAP PO SCH (22:35)
[2018-05-09] MEDS: LEVOTHYROXINE 150 MCG TAB PO SCH (05:49)
[2018-05-09] MEDS: SENNOSIDES/DOCUSATE SODIUM TAB PO SCH (09:34)
[2018-05-09] MEDS: ASPIRIN EC 325 MG TAB PO SCH (09:34)
[2018-05-09] MEDS: LISINOPRIL 5 MG TAB PO SCH (09:34)
[2018-05-09] MEDS: URSODIOL 300 MG CAP PO SCH (09:34)
[2018-05-09] MEDS: MULTIVITAMINS 1 EACH TAB PO SCH (09:34)
[2018-05-09] MEDS: METOPROLOL TARTRATE 25 MG TAB PO SCH (09:35)
[2018-05-09] MEDS: FAMOTIDINE 20 MG TAB PO SCH (09:35)
[2018-05-09] MEDS: ATORVASTATIN CALCIUM 40 MG TAB PO SCH (09:35)
[2018-05-09] MEDS: CLOPIDOGREL BISULFATE 75 MG TAB PO SCH (09:35)
[2018-05-09] MEDS: DIVALPROEX ER 500 MG TAB PO SCH (09:35)
[2018-05-09] MEDS: ENOXAPARIN 40 MG/0.4 ML SYR SC SCH (09:35)
--- NOTE | 2018-05-09 10:23 | HOSPPROG ---
Hospitalist Progress Note Assessment/Plan: Patient is a 67-year-old female presents with acute and subacute CVA *CVA, insult in the left thalamic and internal capsule on MRI -CT angiogram demonstrating plaque at the bilateral bifurcations but no focal stenosis -telemetry shows sinus rhythm -get 30 day event monitor and outpatient follow-up to cardiology (will need to schedule outpatient consultation/referral) -I spoke with cardiology and they are aware, can't do the monitor at IP rehab * CAD. -stent approx 1.5 years ago -A1c 5/8% -LDL 27 *Hypothyroidism. -TSH is 13.1 -Synthroid dose increased to 150 mg -repeat TSH in 4 weeks *. Hypertension -lisinopril added to her home meds. *Transaminitis. Chronic, 2/2 hepatic steatosis *abdominal pain most likely 2/2 abdominal rectus strain -no complaints *Plan: dc to IP rehab Subjective: Lindsay has no complaints. Objective: Vital Signs Temp Pulse Resp BP Pulse Ox 37.1 C 78 24 H 159/78 H 93 05/09/18 07:36 05/09/18 09:35 05/09/18 07:36 05/09/18 09:35 05/09/18 07:36 05/08/18 05/09/18 05/10/18 05:59 05:59 05:59 Intake Total 400 350 Output Total 600 1025 Balance -200 -675 PT 13.4 SEC (12.0-15.0) 05/06/18 20:45 INR 1.00 (0.83-1.16) 05/06/18 20:45 - Physical Exam Constitutional: no apparent distress, appears nourished Eyes: PERRL Ears, Nose, Mouth, Throat: hearing normal Cardiovascular: regular rate and rhythym, no murmur, rub, or gallop Respiratory: no respiratory distress Gastrointestinal: normoactive bowel sounds Skin: warm Musculoskeletal: generalized weakness Neurologic: AAOx3, No facial droop Psychiatric: interacting appropriately ICD10 Worksheet Patient Problems: Problems Problem Status Onset Acute ischemic stroke Acute Confusion Acute AMI (acute myocardial infarction) Acute Fibula fracture Acute Fracture of right tibial plateau Acute Leukocytosis, unspecified Acute Ribs, multiple fractures Acute
--- NOTE | 2018-05-09 10:58 | PDIAF ---
- Diagnosis Diagnosis: acute CVA Code Status: Full Code - Medication Management Discharge Medications: Medications to Continue on Transfer Clopidogrel Bisulfate [Plavix (*)] 75 mg PO DAILY 02/25/17 [Last Taken 05/06/18] Metoprolol Tartrate [Lopressor 25 mg (*)] 25 mg PO BID 02/25/17 [Last Taken 05/17 17:00] Multivitamins [Multivitamin (*)] 1 each PO DAILY 02/25/17 [Last Taken Unknown] Nortriptyline HCl [Pamelor 25 mg (*)] 25 mg PO HS 02/25/17 [Last Taken 05/05/18] Ursodiol [Actigall 300MG (*)] 300 mg PO TID 02/25/17 [Last Taken 05/06/18 ALL DOSES] Divalproex ER [Depakote ER 500 MG (*)] 500 mg PO BID 05/06/18 [Last Taken ] Herbals/Supplements -Info Only 1 ea PO DAILY 05/06/18 [Last Taken Unknown] Ranitidine HCl 150 mg PO BID 05/06/18 [Last Taken 05/06/18 17:00] Ziprasidone HCl [Geodon 20MG (*)] 20 mg PO HS 05/06/18 [Last Taken 05/05/18] Atorvastatin Calcium [Lipitor 40 mg (*)] 20 mg PO DAILY 05/07/18 [Last Taken Unknown] Acetaminophen [Tylenol 325mg (*)] 650 mg PO Q4HRS PRN tab 05/09/18 [Last Taken Unknown] Aspirin EC [Aspirin EC 325 mg (*)] 325 mg PO DAILY tab 05/09/18 [Last Taken Unknown] Levothyroxine [Synthroid 150 mcg (*)] 150 mcg PO DAILY AT 6AM tab 05/09/18 [ Last Taken Unknown] Lisinopril [Zestril 5 mg (*)] 5 mg PO DAILY tab 05/09/18 [Last Taken Unknown] Polyethylene Glycol 3350 [Miralax 17 gm (*)] 17 gm PO DAILY PRN pkt 05/09/18 [ Last Taken Unknown] Sennosides/Docusate Sodium [Senokot-S] 1 - 2 tab PO BID tab 05/09/18 [Last Taken Unknown] Discharge Medications: Refer to the Discharge Home Medication list for PRN reason. - Orders Services needed: Physical Therapy, Occupational Therapy, Speech Language Pathologist Diet Recommendation: no restrictions on diet Diet Texture: Regular Texture Diet Additional Instructions: increase aspirin to 325 mg daily She will need to get a 30 day monitor event, if this is negative; would recommend a loop monitor Inpatient rehab to notify [place] cardiology prior to patient's dc to have monitor delivered Synthroid dose was increased, to get this rechecked in 2-4 weeks F/with Dr Bush Lisinopril is a new home medication - Follow Up Care Current Providers and Referrals: Gina Jain MD [Primary Care Provider] - As per Instructions Kunal Bush MD [Medical Doctor] -
--- NOTE | 2018-05-09 11:30 | GDS ---
[f rep st] DISCHARGE SUMMARY DISCHARGE DIAGNOSES: 1. Acute cerebrovascular accident. 2. Coronary artery disease. 3. Hypothyroidism. 4. Hypertension. 5. Transaminitis. 6. Abdominal pain. CONSULTATION: Dr. Kunal Bush. Briefly, the patient is a 67-year-old patient with multiple chronic medical problems. She has a history of coronary artery disease, status post SD and stent placement, hypertension, hypothyroidism and bipolar disorder. She had been living independently in an apartment. She has been on Plavix and aspirin. She had some cognitive changes some years ago and started having more decline. She was veering to the right frequently with walking. She had an MRI performed that showed an acute and subacute infarct. She was subsequently admitted for further evaluation. She had a CT of the head and neck, which did not show any acute thrombosis or significant carotid disease. On the configuration management consultant she has had no atrial fibrillation. Her echocardiogram did not show any type of intracardiac shunting. Today, she will be discharged to inpatient rehabilitation. I spoke with the patient and her sister about the importance of her getting an outpatient 30-day event monitor. I also spoke with [facility], they will be awaiting call from inpatient rehabilitation. HOSPITAL COURSE: 1. CVA. She is having some ongoing weakness and veering still with her right side, to go to inpatient rehab to further evaluate. 2. Coronary artery disease. She is on beta mohit and aspirin and statin therapy. 3. Hypothyroidism. Her TSH is elevated at 13.1. Her Synthroid dose was increased to 150 mcg. We will have her get a repeat TSH in 4 weeks. 4. Hypertension. Lisinopril has been added to her home regimen. 5. Transaminitis. This is likely secondary to hepatic steatosis. 6. Abdominal pain. No further complaints. DISCHARGE CONDITION: Stable. Blood pressure is 159/78, heart rate is 78, respiratory rate is 16, O2 sats on room air 93%, temperature 37.1 Celsius. MEDICATIONS AT DISCHARGE: Please see the EMR. DISCHARGE INSTRUCTIONS: 1. Her aspirin dose has been increased to 325 mg daily. 2. Her Synthroid dose was increased to get a TSH rechecked in 2-4 weeks. 3. Follow up with Dr. Bush. 4. Inpatient rehabilitation to follow up with Cardiology, prior to her discharge from there. Greater than 30 minutes discharging and coordinating the patient's care. /[id number]/MODL MTDD
[2018-05-09 11:36] VITALS: BP 154/116
--- NOTE | 2018-05-09 16:23 | ASMTCMCOM ---
CM Note CM Note Notes: Pt medically stable for d/c to [facility] inpatient rehab. Pt sister/ALIYAH Fuentes is present and updated. YAHIR gonzales arranged for private pay with [employer] for 15:45. FIDENCIO Douglas to call report. Orders to be obtained via [employer]. Date Signed: 05/09/2018 04:22 PM Electronically Signed By:SAIGE Caruso
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
== END 2018-05-09 15:53 | DRG 66 ==
LOC: OBSVTOIN 21:19 → F3N 22:54
PROVIDERS: ADMIT Internal Medicine; ATTEND Internal Medicine
DX: I63.9 Cerebral infarction, unspecified (principal); E86.9 Volume depletion, unspecified; S39.011A Strain of muscle, fascia and tendon of abdomen, initial encounter; R29.6 Repeated falls; I25.10 Atherosclerotic heart disease of native coronary artery without angina pectoris; E03.9 Hypothyroidism, unspecified; I10 Essential (primary) hypertension; I25.2 Old myocardial infarction; F31.9 Bipolar disorder, unspecified; Z79.82 Long term (current) use of aspirin; Z95.5 Presence of coronary angioplasty implant and graft
CPT/HCPCS: 92507-GN; 92523-GN; 97116-GP; 97162-GP; 97167-GO; 97530-GO; 97530-GP; 97535-GO; G8978-GP-CJ; G8979-GP-CI; G8987-GO-CL; G8988-GO-CJ; G9168-GN-CJ; G9169-GN-CI; J1650; Q9967

== ENCOUNTER 2018-05-09 16:21 | Inpatient (IN) | payer OTHER ==
[2018-05-09] MEDS ORDERED: ACETAMINOPHEN 325 MG TAB PO PRN (17:00)
[2018-05-09] MEDS ORDERED: POLYETHYLENE GLYCOL 3350 17 GM PKT PO PRN (17:00)
[2018-05-09] MEDS ORDERED: LORazepam 0.5 MG TAB PO PRN (18:12)
[2018-05-09] MEDS ORDERED: traMADol 50 MG TAB PO PRN (18:13)
[2018-05-09] MEDS ORDERED: PANTOPRAZOLE SODIUM 40 MG TAB PO ONE (18:14)
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
[2018-05-09] MEDS ORDERED: DIVALPROEX ER 500 MG TAB PO SCH (21:00)
[2018-05-09] MEDS ORDERED: FAMOTIDINE 20 MG TAB PO SCH (21:00)
[2018-05-09] MEDS: NORTRIPTYLINE HCL 25 MG CAP PO SCH (22:19)
[2018-05-09] MEDS: ZIPRASIDONE HCL 20 MG CAP PO SCH (22:19)
[2018-05-09] MEDS: METOPROLOL TARTRATE 25 MG TAB PO SCH (22:19)
[2018-05-09] MEDS: URSODIOL 300 MG CAP PO SCH (22:19)
[2018-05-09] MEDS: SENNOSIDES/DOCUSATE SODIUM TAB PO SCH (22:44)
[2018-05-10] MEDS: LEVOTHYROXINE 150 MCG TAB PO SCH (06:17)
[2018-05-10] MEDS: ENOXAPARIN 40 MG/0.4 ML SYR SC SCH (08:19)
[2018-05-10] MEDS: SENNOSIDES/DOCUSATE SODIUM TAB PO SCH ×2 (08:21→19:29)
[2018-05-10] MEDS ORDERED: Herbals/Supplements -Info Only PO SCH (09:00)
[2018-05-10] MEDS: ASPIRIN EC 325 MG TAB PO SCH (10:38)
[2018-05-10] MEDS: CLOPIDOGREL BISULFATE 75 MG TAB PO SCH (10:39)
[2018-05-10] MEDS: LISINOPRIL 5 MG TAB PO SCH (10:40)
[2018-05-10] MEDS: METOPROLOL TARTRATE 25 MG TAB PO SCH ×2 (10:40→20:26)
[2018-05-10] MEDS: ATORVASTATIN CALCIUM 40 MG TAB PO SCH (10:42)
[2018-05-10] MEDS: MULTIVITAMINS 1 EACH TAB PO SCH (10:43)
[2018-05-10] MEDS: URSODIOL 300 MG CAP PO SCH ×3 (10:54→21:15)
[2018-05-10] MEDS: DIVALPROEX NA 500 MG TAB PO SCH ×2 (10:54→20:25)
--- NOTE | 2018-05-10 10:55 | SOAPPROG ---
SOAP Progress Note Assessment/Plan: Assessment: Abdominal pain. Abdominal CT 05/09/2018 showed T12 compression fracture with mild neural impingement. She has been treated with acetaminophen and tramadol. Discussed with Neurosurgery and ordered a [place] brace for comfort. If pain significantly interferes with therapy, consider referral for kyphoplasty. Spinal precautions. Deficits to mobility and activities of daily living status post CVA to be assessed and treated by physical and occupational therapies, with a goal of modified independent level for discharge home. Cognitive impairment. She was noted to be oriented x4 in the hospital, and she is oriented only to self currently. Query whether this is a result of acute pain or dosing with lorazepam. She will be assessed and treated per Speech and Language Pathology. Will attempt to avoid any other sedating medications, though it is conceivable that she will need to have lorazepam initially should her behavior cause safety considerations as she adjusts to the milieu on the inpatient rehabilitation unit. Coronary artery disease, status post myocardial infarction and stenting approximately 1 1/2 years ago. Continue clopidogrel and aspirin, as well as blood pressure control, and lipid control. These measures will also serve for secondary prevention of CVA. 5. Cryptogenic etiology of CVA. She will have a referral to Cardiology after her discharge from inpatient rehabilitation for the placement of a 30-day monitor to rule out cardiac arrhythmia as contributing to her CVA. Bipolar disorder. Continue medications. Hypothyroidism. Her levothyroxine dose has been increased. Query whether she has had full compliance with levothyroxine given her recent decline and cognitive issues. We will attempt to gather further history from her sister. In the meantime, will continue 150 mcg per day of levothyroxine, and she should have a repeat TSH in 4-6 weeks. Prophylaxis. Given her current level of mobility, she continues to be at risk for a deep venous thrombosis. Will prescribe enoxaparin subcutaneous to start tomorrow, and given that she is on 2 antiplatelet medications at the same time, will discontinue the ranitidine, and initiate pantoprazole for GI protection. Followup: She will follow up with neurologist, Dr. Bush, after her discharge from inpatient rehabilitation, and she will follow up with Cardiology as discussed above. 05/10/18 10:58 Subjective: Pain is improved this morning. She slept well. Had a large bowel movement. No fevers or chills, no cough or dyspnea. Objective: Vital Signs Temp Pulse Resp BP Pulse Ox 36.4 C 69 15 136/78 H 95 05/10/18 07:23 05/10/18 07:23 05/10/18 07:23 05/10/18 07:23 05/10/18 07:23 05/09/18 05/10/18 05/11/18 05:59 05:59 05:59 Intake Total 500 Output Total 750 Balance 500 -750 Physical Exam - Physical Exam General Appearance: WD/WN, alert, no apparent distress Respiratory: normal breath sounds, crackles (few LLL), No rhonchi, No wheezing Cardiac/Chest: regular rate, rhythm, No edema, No diastolic murmur, No systolic murmur Skin: normal color, warm/dry Neuro/Psych: alert, normal mood/affect, motor weakness (Moves all extremities), cognition abnormalities (Very concrete) ICD10 Worksheet Patient Problems: Problems Problem Status Onset AMI (acute myocardial infarction) Acute Acute ischemic stroke Acute Confusion Acute Fibula fracture Acute Fracture of right tibial plateau Acute Leukocytosis, unspecified Acute Ribs, multiple fractures Acute
--- NOTE | 2018-05-10 10:56 | PDOREHIP ---
Admission [facility] - Admission - 3 Day Assessment Period Admission Date/Day 1: 05/09/18 Day 2: 05/10/18 Day 3: 05/11/18 - Active Diagnoses Comorbidities and Co-existing Conditions at Admission: 63637. None of the Above - Skin Conditions Unhealed Pressure Ulcer (1 or more/Stage 1 or >)-Admission: 0. No
[2018-05-10] MEDS ORDERED: ACETAMINOPHEN 325 MG TAB PO SCH (14:00)
[2018-05-10] MEDS: ACETAMINOPHEN 500 MG TAB PO SCH ×2 (16:05→21:09)
[2018-05-10] MEDS: NORTRIPTYLINE HCL 25 MG CAP PO SCH (20:25)
[2018-05-10] MEDS: ZIPRASIDONE HCL 20 MG CAP PO SCH (20:25)
[2018-05-11] MEDS: ACETAMINOPHEN 500 MG TAB PO SCH ×3 (05:01→21:23)
[2018-05-11] MEDS: LEVOTHYROXINE 150 MCG TAB PO SCH (05:03)
[2018-05-11] MEDS: ATORVASTATIN CALCIUM 40 MG TAB PO SCH (09:16)
[2018-05-11] MEDS: ASPIRIN EC 325 MG TAB PO SCH (09:16)
[2018-05-11] MEDS: CLOPIDOGREL BISULFATE 75 MG TAB PO SCH (09:19)
[2018-05-11] MEDS: DIVALPROEX NA 500 MG TAB PO SCH ×2 (09:20→21:22)
[2018-05-11] MEDS: MULTIVITAMINS 1 EACH TAB PO SCH (09:20)
[2018-05-11] MEDS: LISINOPRIL 5 MG TAB PO SCH (09:21)
[2018-05-11] MEDS: METOPROLOL TARTRATE 25 MG TAB PO SCH ×2 (09:21→21:22)
[2018-05-11] MEDS: URSODIOL 300 MG CAP PO SCH ×3 (09:22→21:24)
[2018-05-11] MEDS: ENOXAPARIN 40 MG/0.4 ML SYR SC SCH (10:05)
[2018-05-11] MEDS: SENNOSIDES/DOCUSATE SODIUM TAB PO SCH ×2 (10:15→21:23)
--- NOTE | 2018-05-11 14:08 | SOAPPROG ---
SOAP Progress Note Assessment/Plan: Assessment: Pain. Abdominal CT 05/09/2018 showed T12 compression fracture with mild neural impingement. * Discussed further with Dr. Doll, Interventional; Radiology. Also L1 compression fracture. Acuteness in unclear; would need MRI to evaluate. If acute, she would benefit from kyphoplasty. * Continue [place] brace for comfort. Spinal precautions. * Optimize pain control Acetaminophen has been scheduled; has not received tramadol since evening of 05/09/2018. Will schedule tramadol 50 mg three times daily starting 05/11/2018 with an additional 50 mg q.6 hours p.r.n. * If pain significantly interferes with therapy, refer for kyphoplasty. Would need MRI of the T-spine and L-spine to establish acuteness of fractures. Would get MRI in afternoon or evening after therapies, plan to schedule procedure early in the morning. Would need to be NPO after midnight prior to the procedure. There would be a 3 hr recovery after the procedure. Dr. Doll's phone number is [phone]. * Attempted to reach [id number] Gina, who is involved in her care, but no answer. Her cell phone number is [phone]. Deficits to mobility and activities of daily living status post CVA to be assessed and treated by physical and occupational therapies, with a goal of modified independent level for discharge home. Cognitive impairment. Oriented to self only and very perseverative when initially admitted on 05/09/2018. Seems improved and more able to discuss her condition and plan on exam today 05/11/2018. She was noted to be oriented x4 in the hospital. * Assessment and treatment per Speech and Language Pathology. Coronary artery disease, status post myocardial infarction and stenting approximately 1 1/2 years ago. Continue clopidogrel and aspirin, as well as blood pressure control, and lipid control. These measures will also serve for secondary prevention of CVA. Cryptogenic etiology of CVA. She will have a referral to Cardiology after her discharge from inpatient rehabilitation for the placement of a 30-day monitor to rule out cardiac arrhythmia as contributing to her CVA. Bipolar disorder. Continue medications. Hypothyroidism. Her levothyroxine dose has been increased. Query whether she has had full compliance with levothyroxine given her recent decline and cognitive issues. We will attempt to gather further history from her sister. In the meantime, will continue 150 mcg per day of levothyroxine, and she should have a repeat TSH in 4-6 weeks. Prophylaxis. Given her current level of mobility, she continues to be at risk for a deep venous thrombosis. Enoxaparin subcutaneous started 05/10/2018, and given that she is on 2 antiplatelet medications at the same time, discontinued ranitidine, and initiated pantoprazole for GI protection. Followup: She will follow up with neurologist, Dr. Bush, after her discharge from inpatient rehabilitation, and she will follow up with Cardiology as discussed above. 05/11/18 16:24 Subjective: Has had abdominal pain; she is unclear whether it improves after urination. A day urinary incontinence but no elevated postvoid residuals. Continues to have back pain however has been able to tolerate some therapies. She thinks pain is somewhat improved with the use of the [place] brace. Otherwise without complaints. Objective: Vital Signs Temp Pulse Resp BP Pulse Ox 36.5 C 56 L 18 140/69 H 96 05/11/18 05:03 05/11/18 05:03 05/11/18 05:03 05/11/18 05:03 05/11/18 05:03 05/10/18 05/11/18 05/12/18 05:59 05:59 05:59 Intake Total 500 1676 120 Output Total 1675 Balance 500 1 120 - Time Spent With Patient Time Spent With Patient: Greater than 35 min floor time today, including more than 50% of time in coordination of care in discussion with interventional radiologist Dr. Doll, nursing, and physical occupational therapies, as well as discussing plan with the patient. Physical Exam - Physical Exam General Appearance: WD/WN, alert, no apparent distress Respiratory: normal breath sounds, No crackles, No rhonchi, No wheezing Cardiac/Chest: regular rate, rhythm, No diastolic murmur, No systolic murmur Back: Other (Mild tenderness over lower thoracic/upper lumbar region) Skin: normal color, warm/dry Neuro/Psych: alert, normal mood/affect, oriented x 3, other (Able to arise from supine to seated with assistance. Complains of pain while moving.) ICD10 Worksheet Patient Problems: Problems Problem Status Onset AMI (acute myocardial infarction) Acute Acute ischemic stroke Acute Confusion Acute Fibula fracture Acute Fracture of right tibial plateau Acute Leukocytosis, unspecified Acute Ribs, multiple fractures Acute
[2018-05-11] MEDS: traMADol 50 MG TAB PO PRN (16:57)
[2018-05-11] MEDS: ZIPRASIDONE HCL 20 MG CAP PO SCH (21:23)
[2018-05-11] MEDS: NORTRIPTYLINE HCL 25 MG CAP PO SCH (21:23)
[2018-05-11] MEDS: traMADol 50 MG TAB PO SCH (21:24)
[2018-05-12] MEDS: ACETAMINOPHEN 500 MG TAB PO SCH ×3 (06:07→21:36)
[2018-05-12] MEDS: LEVOTHYROXINE 150 MCG TAB PO SCH (06:09)
[2018-05-12] MEDS: ATORVASTATIN CALCIUM 40 MG TAB PO SCH (09:03)
[2018-05-12] MEDS: ASPIRIN EC 325 MG TAB PO SCH (09:03)
[2018-05-12] MEDS: CLOPIDOGREL BISULFATE 75 MG TAB PO SCH (09:03)
[2018-05-12] MEDS: DIVALPROEX NA 500 MG TAB PO SCH ×2 (09:08→21:35)
[2018-05-12] MEDS: METOPROLOL TARTRATE 25 MG TAB PO SCH ×2 (09:09→21:36)
[2018-05-12] MEDS: MULTIVITAMINS 1 EACH TAB PO SCH ×2 (09:09→09:12)
[2018-05-12] MEDS: LISINOPRIL 5 MG TAB PO SCH (09:09)
[2018-05-12] MEDS: traMADol 50 MG TAB PO SCH ×3 (09:10→21:35)
[2018-05-12] MEDS: SENNOSIDES/DOCUSATE SODIUM TAB PO SCH ×2 (09:10→21:35)
[2018-05-12] MEDS: URSODIOL 300 MG CAP PO SCH ×3 (09:12→21:35)
[2018-05-12] MEDS: ENOXAPARIN 40 MG/0.4 ML SYR SC SCH (13:01)
--- NOTE | 2018-05-12 13:36 | SOAPPROG ---
SOAP Progress Note Assessment/Plan: 67-year-old woman with stroke of the left thalamus and left internal capsule found in the setting of acute functional decline over the preceding weeks, stroke thought to be cryptogenic in etiology, follow up with Cardiology after rehab for 30 day monitor. Her case is complicated by history of bipolar disorder. Today's update: A total of 35 min was spent on the floor in the care of the patient, the majority of which was spent in counseling coordination of care regarding her rehab course and planning. She is significantly impaired, she is having difficulty participating in therapy largely because of pain and cognitive issues. It is unclear if she is going to be able to achieve her goal of modified independence for discharge home independently. She will likely need some sort of assistance and family is largely not available. We are exploring options for possible long-term facility discharge, however the team is hopeful that if pain is better controlled and her cognition improves that this situation will change. So far, she has been experiencing some abdominal related pain with a normal CT abdomen pelvis with the exception of the compression fracture noted. Some of the pain may be related to this compression fracture. Dr. Mathur is considering kyphoplasty for pain control, however I am very reluctant to do this given the significant impact it would have on her rehab progress. Continue to treat symptomatically, monitor for other etiologies of the pain. Checking UA today as she does complain of lower abdominal pain. Low threshold for additional imaging or workup given her frail status. Left thalamic and left internal capsule stroke, cryptogenic: Deficits to mobility and activities of daily living status post CVA to be assessed and treated by physical and occupational therapies, with a goal of modified independent level for discharge home. * PT, OT, speech therapy as noted above * Follow-up with cardiology after inpatient rehabilitation for a 30 day monitor for cardiac arrhythmia evaluation * Modified program given her acute pain. This was not apparent prior to her admission to inpatient rehabilitation. Cognitive impairment. Oriented to self only and very perseverative when initially admitted on 05/09/2018, still perseverative but seems to be improved per staff reports. * Assessment and treatment per Speech and Language Pathology. * Perseveration and cognitive impairments may be a significant barrier for her Pain. Abdominal CT 05/09/2018 showed T12 compression fracture with mild neural impingement. At times interfering with therapy but variable. * Dr. Mathur discussed further with Dr. Doll, Interventional; Radiology. Also L1 compression fracture. Acuteness in unclear; would need MRI to evaluate. Unclear whether she would benefit from kyphoplasty, the data supporting this procedure is very limited, especially in the setting of inpatient rehabilitation.. * Continue [place] brace for comfort. Spinal precautions. * Optimize pain control Acetaminophen has been scheduled; has not received tramadol since evening of 05/09/2018. Will schedule tramadol 50 mg three times daily starting 05/11/2018 with an additional 50 mg q.6 hours p.r.n. * If pain significantly interferes with therapy, Dr. Mathur will consider referral for kyphoplasty. Would reportedly need MRI of the T-spine and L-spine to establish acuteness of fractures. Would get MRI in afternoon or evening after therapies, plan to schedule procedure early in the morning. Would need to be NPO after midnight prior to the procedure. There would be a 3 hr recovery after the procedure. Dr. Doll's phone number is [phone]. * Dr. Mathur attempted to reach [id number] Gina, who is involved in her care, but no answer. Her cell phone number is [phone]. * Checking UA Coronary artery disease, status post myocardial infarction and stenting approximately 1 1/2 years ago. * Continue clopidogrel and aspirin, as well as blood pressure control, and lipid control. These measures will also serve for secondary prevention of CVA. Bipolar disorder. In the past, when medications were accidentally discontinued on transfer to a new facility, she had a manic episode requiring inpatient psychiatric care. * Continue outpatient medications. Hypothyroidism. Her levothyroxine dose has been increased. Query whether she has had full compliance with levothyroxine given her recent decline and cognitive issues. We will attempt to gather further history from her sister. * continue 150 mcg per day of levothyroxine * should have a repeat TSH in 4-6 weeks. Prophylaxis. Given her current level of mobility, she continues to be at risk for a deep venous thrombosis. Enoxaparin subcutaneous started 05/10/2018, and given that she is on 2 antiplatelet medications at the same time, discontinued ranitidine, and initiated pantoprazole for GI protection. Followup: She will follow up with neurologist, Dr. Bush, after her discharge from inpatient rehabilitation, and she will follow up with Cardiology as discussed above. 05/12/18 13:24 Subjective: Chief complaint: Rehab progress No acute events overnight. Patient denies any new shortness of breath or chest pain, no new numbness, tingling, or weakness. She was seen in the gym, working with therapies. Therapy did not have any particular concerns but noted that she was intermittently having difficulty participating in therapies because of pain. Also discussed at team rounds, please see documentation for those notes. She does not note difficulty participating in therapy, but is unclear whether not she is a reliable historian in this regard. Objective: Vital Signs Temp Pulse Resp BP Pulse Ox 36.3 C 60 14 142/78 H 99 05/12/18 06:33 05/12/18 06:33 05/12/18 06:33 05/12/18 06:33 05/12/18 06:33 05/11/18 05/12/18 05/13/18 05:59 05:59 05:59 Intake Total 1676 690 Output Total 1675 641 Balance 1 49 Physical Exam - Physical Exam General Appearance: WD/WN, alert, no apparent distress EENT: No scleral icterus (R), No scleral icterus (L) Respiratory: No respiratory distress, No accessory muscle use Cardiac/Chest: normal peripheral pulses, regular rate, rhythm, No edema Abdomen: non-tender, soft, No distended, No guarding, No rebound Skin: normal color, warm/dry, No cyanosis, No diaphoresis Extremities: non-tender, other (joaquín brace in place), No pedal edema, No calf tenderness, No swelling Neuro/Psych: alert, normal mood/affect, other (She had substantial truncal weakness.) ICD10 Worksheet Patient Problems: Problems Problem Status Onset AMI (acute myocardial infarction) Acute Acute ischemic stroke Acute Confusion Acute Fibula fracture Acute Fracture of right tibial plateau Acute Leukocytosis, unspecified Acute Ribs, multiple fractures Acute
[2018-05-12] MEDS: NORTRIPTYLINE HCL 25 MG CAP PO SCH (21:35)
[2018-05-12] MEDS: ZIPRASIDONE HCL 20 MG CAP PO SCH (21:36)
[2018-05-13] MEDS: LEVOTHYROXINE 150 MCG TAB PO SCH (06:38)
[2018-05-13] MEDS: ACETAMINOPHEN 500 MG TAB PO SCH ×3 (06:38→21:02)
[2018-05-13] MEDS: ATORVASTATIN CALCIUM 40 MG TAB PO SCH (08:37)
[2018-05-13] MEDS: DIVALPROEX NA 500 MG TAB PO SCH ×2 (08:39→20:04)
[2018-05-13] MEDS: CLOPIDOGREL BISULFATE 75 MG TAB PO SCH (08:39)
[2018-05-13] MEDS: ENOXAPARIN 40 MG/0.4 ML SYR SC SCH (08:40)
[2018-05-13] MEDS: LISINOPRIL 5 MG TAB PO SCH (08:40)
[2018-05-13] MEDS: METOPROLOL TARTRATE 25 MG TAB PO SCH ×2 (08:41→20:03)
[2018-05-13] MEDS: SENNOSIDES/DOCUSATE SODIUM TAB PO SCH ×2 (08:42→20:04)
[2018-05-13] MEDS: traMADol 50 MG TAB PO SCH ×3 (08:43→21:04)
[2018-05-13] MEDS: URSODIOL 300 MG CAP PO SCH ×3 (08:43→21:02)
[2018-05-13] MEDS: MULTIVITAMINS 1 EACH TAB PO SCH (08:44)
[2018-05-13] MEDS: ASPIRIN EC 325 MG TAB PO SCH (08:45)
--- NOTE | 2018-05-13 12:19 | HOSPPROG ---
Hospitalist Progress Note Assessment/Plan: Assessment: 67-year-old woman with stroke of the left thalamus and left internal capsule Plan: # CVA. 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 Bush # Bipolar disease Type I. Suspect that there is an element of chronic cognitive impairment which has concomitantly developed 2/2 chronic bipolar and tx thereof -cont home Rx -unclear whether patient will have the cognitive capacity to care for self s/p DC # Possible UTI. UA + (compared to 05/09/18 UA), intermittent abdominal sx ( negative CT), urinary urgency (chronic, difficult for patient to discern whether acute worsening, but RN reports incontinence this AM, which is also chronic, but may have acute component), tender L flank/suprapubic areas on exam -get UCx -reviewed outside records (03/16 UCx w/ mehta-sensitive E. coli) -initiate Abx, D#11/06 (Cipro 500 bid starting 05/13, chosen over beta-lactam as patient may have an early-pyelo w/ her flank tenderness, so fluoroquinalone will have increased hematologic bioavailability for possible pyelo # CAD. Cont DAPT + statin # Hypothyroidism. Chronic, elevated TSH may be 2/2 either non-adherence to Rx, or incorrect administration (patient was reportedly taking mid-morning w/ food) -increased to 150mcg, recommend short-term repeat of TSH in 2-4 weeks in case she over-corrects w/ proper administration # Compression fracture. T12, likely 2/2 falls 2/2 CVA -pain currently well managed Diet. Cardiac PPx. High risk, lovenox 40 Code. Full Dispo. ADD uncertain, patient's sister is MDPOA and is very involved w/ living decisions; her desire is to return to independent at discharge, but she is looking for guidance about what will be possible. Subjective: patient w/ mild incontinence this AM, foul smelling urine, intermittent abd cramps Objective: Vital Signs Temp Pulse Resp BP Pulse Ox 36.7 C 58 L 16 133/72 H 92 05/13/18 06:42 05/13/18 08:41 05/13/18 06:42 05/13/18 08:41 05/13/18 06:42 05/12/18 05/13/18 05/14/18 05:59 05:59 05:59 Intake Total 690 1150 200 Output Total 641 200 50 Balance 49 950 150 - Physical Exam Constitutional: no apparent distress, appears nourished, not in pain, No uncomfortable Cardiovascular: regular rate and rhythym, no murmur, rub, or gallop, No edema Respiratory: no respiratory distress, no rales or rhonchi, clear to auscultation Gastrointestinal: normoactive bowel sounds, no palpable masses, tenderness ( mild L flank), No guarding, No distension Genitourinary: other (mild suprapubic tenderness) Neurologic: AAOx3, sensation intact bilaterally, facial droop (R face palsy), No weakness Psychiatric: not anxious, not encephalopathic, flat affect, poor insight, poor memory, No agitated ICD10 Worksheet Patient Problems: Problems Problem Status Onset AMI (acute myocardial infarction) Acute Acute ischemic stroke Acute Confusion Acute Fibula fracture Acute Fracture of right tibial plateau Acute Leukocytosis, unspecified Acute Ribs, multiple fractures Acute
[2018-05-13] MEDS: ZIPRASIDONE HCL 20 MG CAP PO SCH (20:02)
[2018-05-13] MEDS: CIPROFLOXACIN 500 MG TAB PO SCH (20:02)
[2018-05-13] MEDS: NORTRIPTYLINE HCL 25 MG CAP PO SCH (20:04)
[2018-05-14] MEDS: LEVOTHYROXINE 150 MCG TAB PO SCH (05:18)
[2018-05-14] MEDS: ACETAMINOPHEN 500 MG TAB PO SCH ×3 (05:18→21:44)
[2018-05-14] MEDS: ASPIRIN EC 325 MG TAB PO SCH (09:00)
[2018-05-14] MEDS: ATORVASTATIN CALCIUM 40 MG TAB PO SCH (09:00)
[2018-05-14] MEDS: CLOPIDOGREL BISULFATE 75 MG TAB PO SCH (09:02)
[2018-05-14] MEDS: DIVALPROEX NA 500 MG TAB PO SCH ×2 (09:03→20:01)
[2018-05-14] MEDS: URSODIOL 300 MG CAP PO SCH ×3 (09:04→21:43)
[2018-05-14] MEDS: traMADol 50 MG TAB PO SCH ×3 (09:05→21:44)
[2018-05-14] MEDS: LISINOPRIL 5 MG TAB PO SCH (09:06)
[2018-05-14] MEDS: METOPROLOL TARTRATE 25 MG TAB PO SCH ×2 (09:08→20:01)
[2018-05-14] MEDS: SENNOSIDES/DOCUSATE SODIUM TAB PO SCH ×2 (09:10→20:02)
[2018-05-14] MEDS: CIPROFLOXACIN 500 MG TAB PO SCH ×2 (11:11→19:58)
[2018-05-14] MEDS: ENOXAPARIN 40 MG/0.4 ML SYR SC SCH (11:11)
[2018-05-14] MEDS: ZIPRASIDONE HCL 20 MG CAP PO SCH (20:00)
[2018-05-14] MEDS: NORTRIPTYLINE HCL 25 MG CAP PO SCH (20:00)
--- NOTE | 2018-05-15 00:38 | HOSPPROG ---
Hospitalist Progress Note Assessment/Plan: Assessment: 67-year-old woman with stroke of the left thalamus and left internal capsule Plan: # CVA. 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 Bush -counseled sister (MDPOA) extensively today regarding patient's discharge level of care being TBD, but w/ the patient likely requiring some level of assistance w/ ADLs given her current level of guidance and limited insight into needs # Bipolar disease Type I. Suspect that there is an element of chronic cognitive impairment which has concomitantly developed 2/2 chronic bipolar and tx thereof -cont home Rx -unclear whether patient will have the cognitive capacity to care for self s/p DC # Possible UTI. UA + (compared to 05/09/18 UA), intermittent abdominal sx ( negative CT), urinary urgency (chronic, difficult for patient to discern whether acute worsening), tender L flank/suprapubic areas on exam -sister reports noticeable improvement in patient's interactiveness today as well as reduced reports of abd pain since starting Abx -UCx growing E. coli, awaiting sensitivities -initiated Abx, D#12/07 (Cipro 500 bid starting 05/13, chosen over beta-lactam as patient may have an early-pyelo w/ her flank tenderness, so fluoroquinalone will have increased hematologic bioavailability for possible pyelo) # Abdominal pain. Although UTI may be contributing, given the positional nature of the discomfort, I strongly suspect that it is 2/2 (a) anterior abdominal rectus muscular strain when patient engages these muscle fibers (b) T12 compression fxr -patient's sister coaching patient to transfer/reposition on her side, rather than repetitively engaging her rectus muscles when she gets OOB # CAD. Cont DAPT + statin # HTN. Chronic, SBP 140s, cont lisinopril 5 and metop 25 -if SBP consistently > 140, increase lisinopril # Hypothyroidism. Chronic, elevated TSH may be 2/2 either non-adherence to Rx, or incorrect administration (patient was reportedly taking mid-morning w/ food) -increased to 150mcg, recommend short-term repeat of TSH in 2-4 weeks in case she over-corrects w/ proper administration # Compression fracture. T12, likely 2/2 falls 2/2 CVA -pain currently well managed Diet. Cardiac PPx. High risk, lovenox 40 Code. Full Dispo. ADD uncertain, patient's sister is MDPOA and is very involved w/ living decisions; her desire is to return to independent at discharge, but she is looking for guidance about what will be possible. Subjective: patient reporting less abd discomfort today, patient somewhat unaware of the current amount of care she is requiring Objective: Vital Signs Temp Pulse Resp BP Pulse Ox 36.9 C 70 16 157/79 H 93 05/14/18 20:00 05/14/18 20:01 05/14/18 20:00 05/14/18 20:01 05/14/18 20:00 05/13/18 05/14/18 05/15/18 05:59 05:59 05:59 Intake Total 4624 631 6875 Output Total 200 700 300 Balance 985 27 0813 - Time Spent With Patient Time Spent with Patient: greater than 35 minutes Time Spent with Patient: Greater than 35 minutes spent on this patients care, greater than 50% of time spent counseling, educating, and coordinating care regarding the above mentioned plan. - Physical Exam Constitutional: no apparent distress, not in pain, No uncomfortable Cardiovascular: regular rate and rhythym, no murmur, rub, or gallop, No edema Respiratory: no respiratory distress, no rales or rhonchi, clear to auscultation Gastrointestinal: normoactive bowel sounds, tenderness (L flank), No guarding, No distension Neurologic: sensation intact bilaterally, facial droop (R facial palsy), No weakness (motor 5/5 bilat UE/LE) Psychiatric: interacting appropriately, not anxious, flat affect, poor insight, No agitated ICD10 Worksheet Patient Problems: Problems Problem Status Onset AMI (acute myocardial infarction) Acute Fracture of right tibial plateau Acute Fibula fracture Acute Leukocytosis, unspecified Acute Ribs, multiple fractures Acute Confusion Acute Acute ischemic stroke Acute
[2018-05-15] MEDS: ACETAMINOPHEN 500 MG TAB PO SCH ×3 (05:24→21:06)
[2018-05-15] MEDS: LEVOTHYROXINE 150 MCG TAB PO SCH (05:29)
[2018-05-15] MEDS: ENOXAPARIN 40 MG/0.4 ML SYR SC SCH (07:29)
[2018-05-15] MEDS: ASPIRIN EC 325 MG TAB PO SCH (08:33)
[2018-05-15] MEDS: ATORVASTATIN CALCIUM 40 MG TAB PO SCH (08:33)
[2018-05-15] MEDS: DIVALPROEX NA 500 MG TAB PO SCH ×2 (08:35→21:07)
[2018-05-15] MEDS: CLOPIDOGREL BISULFATE 75 MG TAB PO SCH (08:35)
[2018-05-15] MEDS: METOPROLOL TARTRATE 25 MG TAB PO SCH ×2 (08:37→21:07)
[2018-05-15] MEDS: LISINOPRIL 5 MG TAB PO SCH (08:37)
[2018-05-15] MEDS: SENNOSIDES/DOCUSATE SODIUM TAB PO SCH ×2 (08:38→21:09)
[2018-05-15] MEDS: MULTIVITAMINS 1 EACH TAB PO SCH (08:38)
[2018-05-15] MEDS: URSODIOL 300 MG CAP PO SCH ×3 (08:39→21:07)
[2018-05-15] MEDS: traMADol 50 MG TAB PO SCH ×3 (08:39→21:07)
[2018-05-15] MEDS: CIPROFLOXACIN 500 MG TAB PO SCH ×2 (11:28→21:06)
--- NOTE | 2018-05-15 12:51 | SOAPPROG ---
SOAP Progress Note Assessment/Plan: Assessment: Deficits to mobility and activities of daily living status post CVA * Initial functional independence measure 43 on 05/12/2018. Moderate assist for bed mobility with maximal cues for spinal precautions. Has ambulated 40-60 feet with a front wheeled walker and cues for hand placement and spinal precautions. Tended to veer to the right. Setup for upper body dressing, minimal assist for lower body dressing. * Continue PT and OT with goal of modified independence for discharge home. Cognitive impairment. Oriented to self only and very perseverative when initially admitted on 05/09/2018. Seems improved and more able to discuss her condition and plan on exam today 05/11/2018. She was noted to be oriented x4 in the hospital. * Assessment and treatment per Speech and Language Pathology. UTI. * Had flank and suprapubic pain when diagnosed so there was suspicion for pyelonephritis pad * Urine culture with Escherichia coli, resistant only to tetracyclines. * Continue ciprofloxacin, now on day 3 of 7. Coronary artery disease, status post myocardial infarction and stenting approximately 1 1/2 years ago. Continue clopidogrel and aspirin, as well as blood pressure control, and lipid control. These measures will also serve for secondary prevention of CVA. Cryptogenic etiology of CVA. * Secondary prevention with aspirin, clopidogrel, statin, blood pressure control. * Referral to Cardiology after her discharge from inpatient rehabilitation for the placement of a 30-day monitor to rule out cardiac arrhythmia as contributing to her CVA. HTN. * Increase lisinopril from 5 mg to 10 mg q.day starting 05/06/2018. Continue metoprolol 25 mg twice daily. Pain. Abdominal CT 05/09/2018 showed T12 and L1 compression fractures with mild neural impingement. * Adequate control on current medications, with scheduled acetaminophen and tramadol. * Kyphoplasty might provide improved pain relief without medications, however would use up at day of therapy and as it is not necessary for compliance with therapies, will not pursue while on inpatient rehabilitation. * Would need MRI to determine acuity of the L1 fracture. Would need to be NPO for the procedure and 3 hr to recover from the procedure. Bipolar disorder. Continue medications. Hypothyroidism. Her levothyroxine dose has been increased. Query whether she has had full compliance with levothyroxine given her recent decline and cognitive issues. We will attempt to gather further history from her sister. In the meantime, will continue 150 mcg per day of levothyroxine, and she should have a repeat TSH in 4-6 weeks. Prophylaxis. Given her current level of mobility, she continues to be at risk for a deep venous thrombosis. Enoxaparin subcutaneous started 05/10/2018, and given that she is on 2 antiplatelet medications at the same time, discontinued ranitidine, and initiated pantoprazole for GI protection. Followup: She will follow up with neurologist, Dr. Bush, after her discharge from inpatient rehabilitation, and she will follow up with Cardiology as discussed above. DISPOSITION: Has been living alone with her cat, but seems that she will likely need more assistance. She and her family will work with Case Management regarding disposition options. Tentative discharge date set for 05/23/2018. 05/15/18 12:38 Subjective: Reports pain is well controlled. No longer has irritated voiding symptoms and is sleeping well. Objective: Vital Signs Temp Pulse Resp BP Pulse Ox 36.3 C 62 16 140/69 H 96 05/15/18 05:40 05/15/18 05:40 05/15/18 05:40 05/15/18 05:40 05/15/18 05:40 Microbiology 05/13/18 12:45 Urine Culture - Final Urine,Clean Catch Escherichia Coli 05/14/18 05/15/18 05/16/18 05:59 05:59 05:59 Intake Total 720 1650 650 Output Total 700 700 300 Balance 20 950 350 Physical Exam - Physical Exam General Appearance: WD/WN, alert, no apparent distress Respiratory: normal breath sounds, No crackles, No rhonchi, No wheezing Cardiac/Chest: regular rate, rhythm, No edema, No diastolic murmur, No systolic murmur Skin: normal color, warm/dry Neuro/Psych: alert, normal mood/affect, oriented x 3, abnormal gait (Slow, very short steps, narrow base, slightly flexed posture, with front wheeled walker and contact guard assist per PT.) ICD10 Worksheet Patient Problems: Problems Problem Status Onset AMI (acute myocardial infarction) Acute Acute ischemic stroke Acute Confusion Acute Fibula fracture Acute Fracture of right tibial plateau Acute Leukocytosis, unspecified Acute Ribs, multiple fractures Acute
[2018-05-15] MEDS: ZIPRASIDONE HCL 20 MG CAP PO SCH (21:08)
[2018-05-15] MEDS: NORTRIPTYLINE HCL 25 MG CAP PO SCH (21:08)
[2018-05-16] MEDS: ACETAMINOPHEN 500 MG TAB PO SCH ×3 (05:43→20:53)
[2018-05-16] MEDS: LEVOTHYROXINE 150 MCG TAB PO SCH (05:43)
[2018-05-16] MEDS: traMADol 50 MG TAB PO SCH ×3 (07:58→20:53)
[2018-05-16] MEDS: SENNOSIDES/DOCUSATE SODIUM TAB PO SCH ×2 (07:58→20:54)
[2018-05-16] MEDS: LISINOPRIL 5 MG TAB PO SCH (07:59)
[2018-05-16] MEDS: URSODIOL 300 MG CAP PO SCH ×3 (07:59→20:55)
[2018-05-16] MEDS: ASPIRIN EC 325 MG TAB PO SCH (07:59)
[2018-05-16] MEDS: DIVALPROEX NA 500 MG TAB PO SCH ×2 (08:00→20:54)
[2018-05-16] MEDS: ATORVASTATIN CALCIUM 40 MG TAB PO SCH (08:00)
[2018-05-16] MEDS: MULTIVITAMINS 1 EACH TAB PO SCH (08:00)
[2018-05-16] MEDS: METOPROLOL TARTRATE 25 MG TAB PO SCH ×2 (08:01→20:53)
[2018-05-16] MEDS: CLOPIDOGREL BISULFATE 75 MG TAB PO SCH (08:01)
[2018-05-16] MEDS: ENOXAPARIN 40 MG/0.4 ML SYR SC SCH (08:02)
--- NOTE | 2018-05-16 09:04 | SOAPPROG ---
SOAP Progress Note Assessment/Plan: 67-year-old woman with stroke of the left thalamus and left internal capsule found in the setting of acute functional decline over the preceding weeks, stroke thought to be cryptogenic in etiology, follow up with Cardiology after rehab for 30 day monitor. Her case is complicated by history of bipolar disorder. Today's update: Unclear if she is experiencing nighttime delirium, she is on a standing dose of Geodon at baseline. Stopping Ativan as this can contribute to delirium. Has been running slightly hypertensive, systolic today 145, increase lisinopril to 10 mg daily. It appears that may have been the intention by Dr. Mathur in prior notes, however orders reflect lisinopril at 5 mg right now. Overall her pain is somewhat improving, she feels rehabilitation progress is going well. Total of 35 min was spent on the floor in the care of the patient, the majority of which was spent in counseling coordination of care regarding management of potential delirium and safety. Additional issues reviewed without change today include urinary tract infection , coronary artery disease status post [place] and stenting, stroke prevention, bipolar disorder, hypothyroidism, prophylaxis. Continue rehabilitation plan. Tentative discharge date for 05/23, case management working with family on discharge options. She may need more assistance on discharge that she had a baseline. 05/12/18 13:24 05/16/18 09:01 05/16/18 09:05 Subjective: Chief complaint: Nighttime confusion No acute events overnight, patient denies any new shortness of breath or chest pain, no new numbness, tingling, or weakness. She endorses that overnight, she did feel somewhat confused and she is not sure if it was real or imagine that she was out of bed walking around it looking for something. She reports that staff told her that the bed alarm was set and that she would have set off if she was actually out of bed so she is not sure what is real. She denies that she typically has this type of experience at night, was feeling concerned. She states she did not fall or injure herself during this episode. Objective: Vital Signs Temp Pulse Resp BP Pulse Ox 36.7 C 55 L 15 145/70 H 98 05/16/18 06:00 05/16/18 06:00 05/16/18 06:00 05/16/18 06:00 05/16/18 06:00 Microbiology 07/14/18 12:45 Urine Culture - Final Urine,Clean Catch Escherichia Coli 05/15/18 05/16/18 05/17/18 05:59 05:59 05:59 Intake Total 1650 1400 Output Total 700 800 300 Balance 950 600 -300 Physical Exam - Physical Exam General Appearance: alert, no apparent distress EENT: No scleral icterus (R), No scleral icterus (L) Respiratory: No respiratory distress, No accessory muscle use Cardiac/Chest: normal peripheral pulses, regular rate, rhythm, No edema Skin: normal color, warm/dry, No cyanosis, No diaphoresis Extremities: non-tender, No pedal edema, No calf tenderness, No swelling Neuro/Psych: alert, normal mood/affect, oriented x 3 ICD10 Worksheet Patient Problems: Problems Problem Status Onset AMI (acute myocardial infarction) Acute Acute ischemic stroke Acute Confusion Acute Fibula fracture Acute Fracture of right tibial plateau Acute Leukocytosis, unspecified Acute Ribs, multiple fractures Acute
[2018-05-16] MEDS: LISINOPRIL 10 MG TAB PO SCH (09:44)
[2018-05-16] MEDS ORDERED: LISINOPRIL 5 MG TAB PO ONE (09:45)
[2018-05-16] MEDS: CIPROFLOXACIN 500 MG TAB PO SCH ×2 (09:51→20:53)
[2018-05-16] MEDS: traMADol 50 MG TAB PO PRN ×2 (10:17→14:14)
[2018-05-16] MEDS: NORTRIPTYLINE HCL 25 MG CAP PO SCH (20:53)
[2018-05-16] MEDS: ZIPRASIDONE HCL 20 MG CAP PO SCH (20:53)
[2018-05-17] MEDS: LEVOTHYROXINE 150 MCG TAB PO SCH (05:09)
[2018-05-17] MEDS: ACETAMINOPHEN 500 MG TAB PO SCH ×3 (05:09→21:28)
[2018-05-17] MEDS: traMADol 50 MG TAB PO PRN ×2 (06:54→13:53)
[2018-05-17] MEDS: traMADol 50 MG TAB PO SCH ×3 (08:58→21:29)
[2018-05-17] MEDS: DIVALPROEX NA 500 MG TAB PO SCH ×2 (08:59→21:28)
[2018-05-17] MEDS ORDERED: BISACODYL 10 MG SUPP PR PRN (08:59)
[2018-05-17] MEDS: ATORVASTATIN CALCIUM 40 MG TAB PO SCH (08:59)
[2018-05-17] MEDS: METOPROLOL TARTRATE 25 MG TAB PO SCH ×2 (08:59→21:30)
[2018-05-17] MEDS: SENNOSIDES/DOCUSATE SODIUM TAB PO SCH ×2 (09:00→21:30)
[2018-05-17] MEDS: LISINOPRIL 10 MG TAB PO SCH (09:01)
[2018-05-17] MEDS: CIPROFLOXACIN 500 MG TAB PO SCH ×2 (09:01→21:30)
[2018-05-17] MEDS: CLOPIDOGREL BISULFATE 75 MG TAB PO SCH (09:01)
[2018-05-17] MEDS: MULTIVITAMINS 1 EACH TAB PO SCH (09:01)
[2018-05-17] MEDS: ASPIRIN EC 325 MG TAB PO SCH (09:02)
[2018-05-17] MEDS: URSODIOL 300 MG CAP PO SCH ×3 (09:05→21:30)
[2018-05-17] MEDS: ENOXAPARIN 40 MG/0.4 ML SYR SC SCH (09:05)
[2018-05-17] MEDS: POLYETHYLENE GLYCOL 3350 17 GM PKT PO SCH (12:04)
--- NOTE | 2018-05-17 12:42 | SOAPPROG ---
SOAP Progress Note Assessment/Plan: Assessment: Deficits to mobility and activities of daily living status post CVA * Initial functional independence measure 43 on 05/12/2018, improved to 55 as of 05/19/2018. Ambulated 150 ft with a front wheeled walker and minimal assist. Overall minimal assist for mobility. Has not tried stairs as she has no need for stair climbing at home. Grooming and hygiene with supervision, a upper body dressing with setup, lower body dressing with minimal assist. Visual/ perceptual deficit noted by OT. * Continue PT and OT with goal of modified independence for discharge home. Cognitive impairment. Oriented to self only and very perseverative when initially admitted on 05/09/2018. * Has cognitive deficit with decreased attention and memory. * Continue Speech and Language Pathology. UTI. * Had flank and suprapubic pain when diagnosed so there was suspicion for pyelonephritis pad * Urine culture with Escherichia coli, resistant only to tetracyclines. * Continue ciprofloxacin, now on day 3 of 7. Coronary artery disease, status post myocardial infarction and stenting approximately 1 1/2 years ago. Continue clopidogrel and aspirin, as well as blood pressure control, and lipid control. These measures will also serve for secondary prevention of CVA. Cryptogenic etiology of CVA. * Secondary prevention with aspirin, clopidogrel, statin, blood pressure control. * Referral to Cardiology after her discharge from inpatient rehabilitation for the placement of a 30-day monitor to rule out cardiac arrhythmia as contributing to her CVA. HTN. * Increase lisinopril from 5 mg to 10 mg q.day starting 05/06/2018. Continue metoprolol 25 mg twice daily. Pain. Abdominal CT 05/09/2018 showed T12 and L1 compression fractures with mild neural impingement. * Adequate control on current medications, with scheduled acetaminophen and tramadol, but nursing reports increased pain at night.. * Kyphoplasty might provide improved pain relief without medications, however would use up at day of therapy and as it is not necessary for compliance with therapies, will not pursue while on inpatient rehabilitation. * Would need MRI to determine acuity of the L1 fracture. Would need to be NPO for the procedure and 3 hr to recover from the procedure. Bipolar disorder. Continue medications. Hypothyroidism. Her levothyroxine dose has been increased. Query whether she has had full compliance with levothyroxine given her recent decline and cognitive issues. We will attempt to gather further history from her sister. In the meantime, will continue 150 mcg per day of levothyroxine, and she should have a repeat TSH in 4-6 weeks. Prophylaxis. Ambulating 150 ft as of 05/17/2018. Encouraged ambulation to and from meals with assist from nursing. Will discontinue enoxaparin starting 2017. Will change from pantoprazole back to H2 mohit as well. Followup: She will follow up with neurologist, Dr. Bush, after her discharge from inpatient rehabilitation, and she will follow up with Cardiology as discussed above. DISPOSITION: Attended staffing, 15 min. Her brother is in the hospital on her sister is preoccupied with her brother's condition as well as the patient's. Seems less likely at present that she will have adequate help at home given her current level of functioning, however with a 12 point gain in functional independence measure she may yet recover sufficient functional independence. Set discharge date for 05/25/2018. Options are home with assistance verses [facility]. 05/17/18 12:26 Subjective: Reports occasional "pinch" in back. Otherwise no complaints. Sleeping well. No cough or dyspnea, no fevers or chills, bowels moving. Objective: Vital Signs Temp Pulse Resp BP Pulse Ox 36.5 C 72 16 131/72 H 92 05/17/18 05:16 05/17/18 08:59 05/17/18 05:16 05/17/18 05:16 05/17/18 05:16 05/16/18 05/17/18 05/18/18 05:59 05:59 05:59 Intake Total 1400 1376 360 Output Total 800 1100 400 Balance 600 276 -40 - Time Spent With Patient Time Spent With Patient: Greater than 35 min floor time today, including more than 50% of time in coordination of care during staffing meeting, and counseling patient and sister. Physical Exam - Physical Exam General Appearance: WD/WN, alert, no apparent distress Respiratory: normal breath sounds, No crackles, No rhonchi, No wheezing Cardiac/Chest: regular rate, rhythm, No edema, No diastolic murmur, No systolic murmur Abdomen: normal bowel sounds, non-tender, soft, No distended Skin: normal color, warm/dry Neuro/Psych: alert, normal mood/affect, oriented x 3, abnormal gait (How based, slow, short steps, with front wheeled walker and contact guard by PT.) ICD10 Worksheet Patient Problems: Problems Problem Status Onset AMI (acute myocardial infarction) Acute Acute ischemic stroke Acute Confusion Acute Fibula fracture Acute Fracture of right tibial plateau Acute Leukocytosis, unspecified Acute Ribs, multiple fractures Acute
[2018-05-17] MEDS: ZIPRASIDONE HCL 20 MG CAP PO SCH (21:28)
[2018-05-17] MEDS: NORTRIPTYLINE HCL 25 MG CAP PO SCH (21:30)
[2018-05-17] MEDS: FAMOTIDINE 20 MG TAB PO SCH (21:30)
[2018-05-18] MEDS: ACETAMINOPHEN 500 MG TAB PO SCH ×3 (04:07→21:09)
[2018-05-18] MEDS: LEVOTHYROXINE 150 MCG TAB PO SCH (04:07)
[2018-05-18] MEDS: traMADol 50 MG TAB PO PRN (04:07)
[2018-05-18] MEDS: POLYETHYLENE GLYCOL 3350 17 GM PKT PO SCH (09:02)
[2018-05-18] MEDS: ATORVASTATIN CALCIUM 40 MG TAB PO SCH (09:03)
[2018-05-18] MEDS: ASPIRIN EC 325 MG TAB PO SCH (09:03)
[2018-05-18] MEDS: LISINOPRIL 10 MG TAB PO SCH (09:05)
[2018-05-18] MEDS: CLOPIDOGREL BISULFATE 75 MG TAB PO SCH (09:05)
[2018-05-18] MEDS: DIVALPROEX NA 500 MG TAB PO SCH ×2 (09:05→21:09)
[2018-05-18] MEDS: FAMOTIDINE 20 MG TAB PO SCH ×2 (09:05→21:09)
[2018-05-18] MEDS: METOPROLOL TARTRATE 25 MG TAB PO SCH ×2 (09:06→21:08)
[2018-05-18] MEDS: MULTIVITAMINS 1 EACH TAB PO SCH (09:06)
[2018-05-18] MEDS: SENNOSIDES/DOCUSATE SODIUM TAB PO SCH ×2 (09:06→21:08)
[2018-05-18] MEDS: URSODIOL 300 MG CAP PO SCH ×3 (09:07→21:08)
[2018-05-18] MEDS: traMADol 50 MG TAB PO SCH ×3 (09:07→21:09)
[2018-05-18] MEDS: CIPROFLOXACIN 500 MG TAB PO SCH ×2 (11:33→21:08)
--- NOTE | 2018-05-18 13:55 | SOAPPROG ---
SOAP Progress Note Assessment/Plan: 67-year-old woman with stroke of the left thalamus and left internal capsule found in the setting of acute functional decline over the preceding weeks, stroke thought to be cryptogenic in etiology, follow up with Cardiology after rehab for 30 day monitor. Her case is complicated by history of bipolar disorder. Today's update: Doing well overall, making slow progress in rehabilitation. Continues to be hypertensive with systolics in the 140s, increasing lisinopril to 20 mg daily from 10 mg daily. Also continue metoprolol at the present dose. Recheck basic metabolic panel tomorrow morning to ensure electrolytes stability in the setting of changing antihypertensive medications. She has not had repeat confusion at night like reported in the past, staff indicates that she is still slightly impulsive but has been calling appropriately. Consideration for removing bed alarms, but continue to monitor for now. Abdominal pain improved, continue to monitor. Additional issues reviewed without change today include urinary tract infection , coronary artery disease status post [place] and stenting, stroke prevention, bipolar disorder, hypothyroidism, prophylaxis. Continue rehabilitation plan. case management working with family on discharge options. She may need more assistance on discharge that she had a baseline. 05/12/18 13:24 05/16/18 09:01 05/16/18 09:05 05/18/18 13:52 Subjective: Chief complaint: Hypertension No acute events overnight. Patient denies any new shortness of breath or chest pain, no new numbness, tingling, or weakness and no new vision changes. She denies any headache. She continues to have some hypertension in the 140s. Working well with therapies, she reports that her abdominal pain has improved. She also feels that she has some shortness of breath when she gets some anxiety , but otherwise that is also improving. Objective: Vital Signs Temp Pulse Resp BP Pulse Ox 37.0 C 74 16 143/83 H 94 05/18/18 06:52 05/18/18 06:52 05/18/18 06:52 05/18/18 06:52 05/18/18 06:52 05/17/18 05/18/18 05/19/18 05:59 05:59 05:59 Intake Total 1376 830 630 Output Total 1100 800 200 Balance 276 30 430 Physical Exam - Physical Exam General Appearance: WD/WN, alert, no apparent distress EENT: No scleral icterus (R), No scleral icterus (L) Respiratory: No respiratory distress, No accessory muscle use Abdomen: non-tender, soft Skin: normal color, warm/dry, No cyanosis, No diaphoresis Extremities: non-tender, No pedal edema, No calf tenderness, No swelling Neuro/Psych: alert, normal mood/affect, motor weakness, cognition abnormalities ICD10 Worksheet Patient Problems: Problems Problem Status Onset AMI (acute myocardial infarction) Acute Acute ischemic stroke Acute Confusion Acute Fibula fracture Acute Fracture of right tibial plateau Acute Leukocytosis, unspecified Acute Ribs, multiple fractures Acute
[2018-05-18] MEDS: ZIPRASIDONE HCL 20 MG CAP PO SCH (21:08)
[2018-05-18] MEDS: NORTRIPTYLINE HCL 25 MG CAP PO SCH (21:09)
[2018-05-19] MEDS: ACETAMINOPHEN 500 MG TAB PO SCH ×3 (05:17→21:59)
[2018-05-19] MEDS: traMADol 50 MG TAB PO PRN (05:17)
[2018-05-19] MEDS: LEVOTHYROXINE 150 MCG TAB PO SCH (05:17)
[2018-05-19] MEDS: POLYETHYLENE GLYCOL 3350 17 GM PKT PO SCH (08:21)
[2018-05-19] MEDS: MULTIVITAMINS 1 EACH TAB PO SCH (08:22)
[2018-05-19] MEDS: DIVALPROEX NA 500 MG TAB PO SCH ×2 (08:22→22:00)
[2018-05-19] MEDS: ATORVASTATIN CALCIUM 40 MG TAB PO SCH (08:23)
[2018-05-19] MEDS: METOPROLOL TARTRATE 25 MG TAB PO SCH ×2 (08:24→22:01)
[2018-05-19] MEDS: FAMOTIDINE 20 MG TAB PO SCH ×2 (08:24→22:01)
[2018-05-19] MEDS: ASPIRIN EC 325 MG TAB PO SCH (08:24)
[2018-05-19] MEDS: CLOPIDOGREL BISULFATE 75 MG TAB PO SCH (08:24)
[2018-05-19] MEDS: URSODIOL 300 MG CAP PO SCH ×3 (08:24→22:02)
[2018-05-19] MEDS: LISINOPRIL 20 MG TAB PO SCH (08:24)
[2018-05-19] MEDS: SENNOSIDES/DOCUSATE SODIUM TAB PO SCH ×2 (08:25→22:00)
[2018-05-19] MEDS: traMADol 50 MG TAB PO SCH ×3 (08:27→22:01)
[2018-05-19] MEDS: CIPROFLOXACIN 500 MG TAB PO SCH ×2 (09:41→20:36)
--- NOTE | 2018-05-19 14:40 | SOAPPROG ---
SOAP Progress Note Assessment/Plan: Assessment: Deficits to mobility and activities of daily living status post CVA * Initial functional independence measure 43 on 05/12/2018, improved to 55 as of 05/17/2018. Ambulated 150 ft with a front wheeled walker and minimal assist. Overall minimal assist for mobility. Has not tried stairs as she has no need for stair climbing at home. Grooming and hygiene with supervision, a upper body dressing with setup, lower body dressing with minimal assist. Visual/ perceptual deficit noted by OT. * Continue PT and OT with goal of modified independence for discharge home. Cognitive impairment. Oriented to self only and very perseverative when initially admitted on 05/09/2018. * Has cognitive deficit with decreased attention and memory. * Continue Speech and Language Pathology. UTI. * Had flank and suprapubic pain when diagnosed so there was suspicion for pyelonephritis pad * Urine culture with Escherichia coli, resistant only to tetracyclines. * Continue ciprofloxacin, 7 days, discontinuing 05/20/2018. Coronary artery disease, status post myocardial infarction and stenting approximately 1 1/2 years ago. Continue clopidogrel and aspirin, as well as blood pressure control, and lipid control. These measures will also serve for secondary prevention of CVA. Cryptogenic etiology of CVA. * Secondary prevention with aspirin, clopidogrel, statin, blood pressure control. * Referral to Cardiology after her discharge from inpatient rehabilitation for the placement of a 30-day monitor to rule out cardiac arrhythmia as contributing to her CVA. HTN. * Increase lisinopril from 5 mg to 10 mg q.day starting 05/06/2018; increased further to 20 mg starting . Continue metoprolol 25 mg twice daily. Pain. Abdominal CT 05/09/2018 showed T12 and L1 compression fractures with mild neural impingement. * Adequate control on current medications, with scheduled acetaminophen and tramadol, but nursing reports increased pain at night.. * Kyphoplasty might provide improved pain relief without medications, however would use up at day of therapy and as it is not necessary for compliance with therapies, will not pursue while on inpatient rehabilitation. * Would need MRI to determine acuity of the L1 fracture. Would need to be NPO for the procedure and 3 hr to recover from the procedure. Bipolar disorder. Continue medications. Hypothyroidism. Her levothyroxine dose has been increased. Query whether she has had full compliance with levothyroxine given her recent decline and cognitive issues. We will attempt to gather further history from her sister. In the meantime, will continue 150 mcg per day of levothyroxine, and she should have a repeat TSH in 4-6 weeks. Prophylaxis. Ambulating 150 ft as of 05/17/2018. Encouraged ambulation to and from meals with assist from nursing. Will discontinue enoxaparin starting 2017. Will change from pantoprazole back to H2 mohit as well. Followup: She will follow up with neurologist, Dr. Bush, after her discharge from inpatient rehabilitation, and she will follow up with Cardiology as discussed above. DISPOSITION: Her brother is in the hospital (05/17/2018) and her sister is preoccupied with her brother's condition as well as the patient's. Seems less likely at present that she will have adequate help at home given her current level of functioning, however with a 12 point gain in functional independence measure she may yet recover sufficient functional independence. Set discharge date for 05/25/2018. Options are home with assistance verses continue rehabilitation at the alf level. 05/19/18 14:38 Subjective: Complains of back pain at present. It has not been interfering with her sleep or with her function with therapies. Bowels are moving. No cough or dyspnea. No dysuria Objective: Vital Signs Temp Pulse Resp BP Pulse Ox 37.0 C 54 L 14 120/67 93 05/19/18 06:01 05/19/18 06:01 05/19/18 06:01 05/19/18 06:01 05/19/18 06:01 Laboratory Results 05/19/18 06:45 05/18/18 05/19/18 05/20/18 05:59 05:59 05:59 Intake Total 830 1110 540 Output Total 800 1650 Balance 30 -540 540 Physical Exam - Physical Exam General Appearance: WD/WN, alert, no apparent distress Respiratory: No respiratory distress, No accessory muscle use Skin: normal color, warm/dry Neuro/Psych: alert, normal mood/affect, oriented x 3 ICD10 Worksheet Patient Problems: Problems Problem Status Onset AMI (acute myocardial infarction) Acute Acute ischemic stroke Acute Confusion Acute Fibula fracture Acute Fracture of right tibial plateau Acute Leukocytosis, unspecified Acute Ribs, multiple fractures Acute
[2018-05-19] MEDS: ZIPRASIDONE HCL 20 MG CAP PO SCH (22:01)
[2018-05-19] MEDS: NORTRIPTYLINE HCL 25 MG CAP PO SCH (22:01)
[2018-05-20] MEDS: LEVOTHYROXINE 150 MCG TAB PO SCH (06:00)
[2018-05-20] MEDS: ACETAMINOPHEN 500 MG TAB PO SCH ×3 (06:00→21:00)
[2018-05-20] MEDS: traMADol 50 MG TAB PO SCH ×3 (08:17→21:00)
[2018-05-20] MEDS: FAMOTIDINE 20 MG TAB PO SCH ×2 (08:17→20:59)
[2018-05-20] MEDS: URSODIOL 300 MG CAP PO SCH ×3 (08:17→20:58)
[2018-05-20] MEDS: LISINOPRIL 20 MG TAB PO SCH (08:17)
[2018-05-20] MEDS: CLOPIDOGREL BISULFATE 75 MG TAB PO SCH (08:17)
[2018-05-20] MEDS: ATORVASTATIN CALCIUM 40 MG TAB PO SCH (08:17)
[2018-05-20] MEDS: METOPROLOL TARTRATE 25 MG TAB PO SCH ×2 (08:18→20:59)
[2018-05-20] MEDS: MULTIVITAMINS 1 EACH TAB PO SCH (08:18)
[2018-05-20] MEDS: DIVALPROEX NA 500 MG TAB PO SCH ×2 (08:18→20:58)
[2018-05-20] MEDS: POLYETHYLENE GLYCOL 3350 17 GM PKT PO SCH (08:18)
[2018-05-20] MEDS: ASPIRIN EC 325 MG TAB PO SCH (08:18)
[2018-05-20] MEDS: SENNOSIDES/DOCUSATE SODIUM TAB PO SCH ×2 (08:19→20:59)
[2018-05-20] MEDS: CIPROFLOXACIN 500 MG TAB PO SCH (11:46)
--- NOTE | 2018-05-20 12:57 | SOAPPROG ---
SOAP Progress Note Assessment/Plan: Assessment: Deficits to mobility and activities of daily living status post CVA * Initial functional independence measure 43 on 05/12/2018, improved to 55 as of 05/17/2018. Ambulated 150 ft with a front wheeled walker and minimal assist. Overall minimal assist for mobility. Has not tried stairs as she has no need for stair climbing at home. Grooming and hygiene with supervision, a upper body dressing with setup, lower body dressing with minimal assist. Visual/ perceptual deficit noted by OT. * Continue PT and OT with goal of modified independence for discharge home. Cognitive impairment. Oriented to self only and very perseverative when initially admitted on 05/09/2018. * Has cognitive deficit with decreased attention and memory. * Continue Speech and Language Pathology. UTI. * Had flank and suprapubic pain when diagnosed so there was suspicion for pyelonephritis pad * Urine culture with Escherichia coli, resistant only to tetracyclines. * Continue ciprofloxacin, 7 days, discontinuing 05/20/2018. Coronary artery disease, status post myocardial infarction and stenting approximately 1 1/2 years ago. Continue clopidogrel and aspirin, as well as blood pressure control, and lipid control. These measures will also serve for secondary prevention of CVA. Cryptogenic etiology of CVA. * Secondary prevention with aspirin, clopidogrel, statin, blood pressure control. * Referral to Cardiology after her discharge from inpatient rehabilitation for the placement of a 30-day monitor to rule out cardiac arrhythmia as contributing to her CVA. HTN. * Increase lisinopril from 5 mg to 10 mg q.day starting 05/06/2018; increased further to 20 mg starting . Continue metoprolol 25 mg twice daily. * BP variable, cont to watch over the weekend Pain. Abdominal CT 05/09/2018 showed T12 and L1 compression fractures with mild neural impingement. * Adequate control on current medications, with scheduled acetaminophen and tramadol, but nursing reports increased pain at night.. * Kyphoplasty might provide improved pain relief without medications, however would use up at day of therapy and as it is not necessary for compliance with therapies, will not pursue while on inpatient rehabilitation. * Would need MRI to determine acuity of the L1 fracture. Would need to be NPO for the procedure and 3 hr to recover from the procedure. * can discuss with Dr Saavedra on Tuesday - try to schedule after dc Bipolar disorder. Continue medications. Hypothyroidism. Her levothyroxine dose has been increased. Query whether she has had full compliance with levothyroxine given her recent decline and cognitive issues. We will attempt to gather further history from her sister. In the meantime, will continue 150 mcg per day of levothyroxine, and she should have a repeat TSH in 4-6 weeks. Prophylaxis. Ambulating 150 ft as of 05/17/2018. Encouraged ambulation to and from meals with assist from nursing. Will discontinue enoxaparin starting 2017. Will change from pantoprazole back to H2 mohit as well. Plan: 05/20/18 12:55 Subjective: complaining of back pain. Objective: Vital Signs Temp Pulse Resp BP Pulse Ox 36.4 C 71 16 144/76 H 95 05/20/18 08:00 05/20/18 08:00 05/20/18 08:00 05/20/18 08:00 05/20/18 08:00 Laboratory Results 05/19/18 06:45 05/19/18 05/20/18 05/21/18 05:59 05:59 05:59 Intake Total 1110 740 311 Output Total 1650 250 Balance -540 740 61 Physical Exam - Physical Exam General Appearance: WD/WN, alert, no apparent distress Neck: supple Respiratory: lungs clear, normal breath sounds, No respiratory distress Cardiac/Chest: regular rate, rhythm, No edema Abdomen: non-tender, soft Skin: warm/dry Neuro/Psych: alert, normal mood/affect ICD10 Worksheet Patient Problems: Problems Problem Status Onset AMI (acute myocardial infarction) Acute Acute ischemic stroke Acute Confusion Acute Fibula fracture Acute Fracture of right tibial plateau Acute Leukocytosis, unspecified Acute Ribs, multiple fractures Acute
[2018-05-20] MEDS: NORTRIPTYLINE HCL 25 MG CAP PO SCH (20:58)
[2018-05-20] MEDS: ZIPRASIDONE HCL 20 MG CAP PO SCH (20:58)
[2018-05-21] MEDS: LEVOTHYROXINE 150 MCG TAB PO SCH (05:49)
[2018-05-21] MEDS: ACETAMINOPHEN 500 MG TAB PO SCH ×3 (05:49→20:40)
[2018-05-21] MEDS: POLYETHYLENE GLYCOL 3350 17 GM PKT PO SCH (09:09)
[2018-05-21] MEDS: DIVALPROEX NA 500 MG TAB PO SCH ×2 (09:09→20:40)
[2018-05-21] MEDS: MULTIVITAMINS 1 EACH TAB PO SCH (09:11)
[2018-05-21] MEDS: URSODIOL 300 MG CAP PO SCH ×3 (09:11→21:57)
[2018-05-21] MEDS: FAMOTIDINE 20 MG TAB PO SCH ×2 (09:11→20:41)
[2018-05-21] MEDS: CLOPIDOGREL BISULFATE 75 MG TAB PO SCH (09:11)
[2018-05-21] MEDS: METOPROLOL TARTRATE 25 MG TAB PO SCH ×2 (09:11→20:40)
[2018-05-21] MEDS: ATORVASTATIN CALCIUM 40 MG TAB PO SCH (09:11)
[2018-05-21] MEDS: SENNOSIDES/DOCUSATE SODIUM TAB PO SCH ×2 (09:11→20:46)
[2018-05-21] MEDS: ASPIRIN EC 325 MG TAB PO SCH (09:12)
[2018-05-21] MEDS: LISINOPRIL 20 MG TAB PO SCH (09:12)
[2018-05-21] MEDS: traMADol 50 MG TAB PO SCH ×3 (09:12→20:39)
--- NOTE | 2018-05-21 13:09 | SOAPPROG ---
SOAP Progress Note Assessment/Plan: Assessment: Deficits to mobility and activities of daily living status post CVA * Initial functional independence measure 43 on 05/12/2018, improved to 55 as of 05/17/2018. Ambulated 150 ft with a front wheeled walker and minimal assist. Overall minimal assist for mobility. Has not tried stairs as she has no need for stair climbing at home. Grooming and hygiene with supervision, a upper body dressing with setup, lower body dressing with minimal assist. Visual/ perceptual deficit noted by OT. * Continue PT and OT with goal of modified independence for discharge home. Cognitive impairment. Oriented to self only and very perseverative when initially admitted on 05/09/2018. * Has cognitive deficit with decreased attention and memory. * Continue Speech and Language Pathology. UTI. * Had flank and suprapubic pain when diagnosed so there was suspicion for pyelonephritis pad * Urine culture with Escherichia coli, resistant only to tetracyclines. * Continue ciprofloxacin, 7 days, discontinuing 05/20/2018. Coronary artery disease, status post myocardial infarction and stenting approximately 1 1/2 years ago. Continue clopidogrel and aspirin, as well as blood pressure control, and lipid control. These measures will also serve for secondary prevention of CVA. Cryptogenic etiology of CVA. * Secondary prevention with aspirin, clopidogrel, statin, blood pressure control. * Referral to Cardiology after her discharge from inpatient rehabilitation for the placement of a 30-day monitor to rule out cardiac arrhythmia as contributing to her CVA. HTN. * Increase lisinopril from 5 mg to 10 mg q.day starting 05/06/2018; increased further to 20 mg starting . Continue metoprolol 25 mg twice daily. * BP variable, cont to watch over the weekend Pain. Abdominal CT 05/09/2018 showed T12 and L1 compression fractures with mild neural impingement. * Adequate control on current medications, with scheduled acetaminophen and tramadol, but nursing reports increased pain at night.. * Kyphoplasty might provide improved pain relief without medications, however would use up at day of therapy and as it is not necessary for compliance with therapies, will not pursue while on inpatient rehabilitation. * Would need MRI to determine acuity of the L1 fracture. Would need to be NPO for the procedure and 3 hr to recover from the procedure. * can discuss with Dr Saavedra on Tuesday - try to schedule kyphoplasty after dc - although she is hesitant about the procedure Bipolar disorder. Continue medications. Hypothyroidism. Her levothyroxine dose has been increased. Query whether she has had full compliance with levothyroxine given her recent decline and cognitive issues. We will attempt to gather further history from her sister. In the meantime, will continue 150 mcg per day of levothyroxine, and she should have a repeat TSH in 4-6 weeks. Prophylaxis. Ambulating 150 ft as of 05/17/2018. Encouraged ambulation to and from meals with assist from nursing. Will discontinue enoxaparin starting 2017. Will change from pantoprazole back to H2 mohit as well. Plan: 05/20/18 12:55 05/21/18 13:08 Subjective: back pain about the same. hurts most when getting in and out of bed Objective: Vital Signs Temp Pulse Resp BP Pulse Ox 36.8 C 59 L 16 107/66 91 L 05/21/18 06:41 05/21/18 06:41 05/21/18 06:41 05/21/18 06:41 05/21/18 06:41 Laboratory Results 05/19/18 06:45 05/20/18 05/21/18 05/22/18 05:59 05:59 05:59 Intake Total 740 751 590 Output Total 960 Balance 740 -209 590 Physical Exam - Physical Exam General Appearance: WD/WN, alert, no apparent distress Respiratory: lungs clear, normal breath sounds Cardiac/Chest: regular rate, rhythm, No edema Abdomen: non-tender, soft Skin: warm/dry Neuro/Psych: alert, normal mood/affect, oriented x 3 ICD10 Worksheet Patient Problems: Problems Problem Status Onset AMI (acute myocardial infarction) Acute Acute ischemic stroke Acute Confusion Acute Fibula fracture Acute Fracture of right tibial plateau Acute Leukocytosis, unspecified Acute Ribs, multiple fractures Acute
[2018-05-21] MEDS: ZIPRASIDONE HCL 20 MG CAP PO SCH (20:40)
[2018-05-21] MEDS: NORTRIPTYLINE HCL 25 MG CAP PO SCH (20:41)
[2018-05-22] MEDS: ACETAMINOPHEN 500 MG TAB PO SCH ×3 (05:09→21:07)
[2018-05-22] MEDS: LEVOTHYROXINE 150 MCG TAB PO SCH (05:09)
[2018-05-22] MEDS: ASPIRIN EC 325 MG TAB PO SCH (08:15)
[2018-05-22] MEDS: ATORVASTATIN CALCIUM 40 MG TAB PO SCH (08:15)
[2018-05-22] MEDS: DIVALPROEX NA 500 MG TAB PO SCH ×2 (08:18→19:53)
[2018-05-22] MEDS: CLOPIDOGREL BISULFATE 75 MG TAB PO SCH (08:18)
[2018-05-22] MEDS: FAMOTIDINE 20 MG TAB PO SCH ×2 (08:19→19:53)
[2018-05-22] MEDS: LISINOPRIL 20 MG TAB PO SCH (08:19)
[2018-05-22] MEDS: METOPROLOL TARTRATE 25 MG TAB PO SCH ×2 (08:20→19:53)
[2018-05-22] MEDS: MULTIVITAMINS 1 EACH TAB PO SCH (08:21)
[2018-05-22] MEDS: POLYETHYLENE GLYCOL 3350 17 GM PKT PO SCH (08:22)
[2018-05-22] MEDS: SENNOSIDES/DOCUSATE SODIUM TAB PO SCH ×2 (08:22→19:54)
[2018-05-22] MEDS: URSODIOL 300 MG CAP PO SCH ×3 (08:22→21:07)
[2018-05-22] MEDS: traMADol 50 MG TAB PO SCH ×3 (08:22→21:08)
[2018-05-22] MEDS: traMADol 50 MG TAB PO PRN (13:13)
--- NOTE | 2018-05-22 14:03 | SOAPPROG ---
SOAP Progress Note Assessment/Plan: 67-year-old woman with stroke of the left thalamus and left internal capsule found in the setting of acute functional decline over the preceding weeks, stroke thought to be cryptogenic in etiology, follow up with Cardiology after rehab for 30 day monitor. Her case is complicated by history of bipolar disorder. Today's update: 40 min was spent on the floor in the care of the patient, the majority of which was spent in counseling coordination of care regarding discussion with the patient and family the options for back pain treatment including kyphoplasty. I counseled the patient and family that the date indicates that kyphoplasty may be helpful in the control of short-term pain, but long-term outcomes are not substantially different from standard care. The patient and family do not wish to pursue kyphoplasty any further. I discussed that outpatient referrals could be made if they desire and they did not want to at this time. Deficits to mobility and activities of daily living status post CVA. Initial functional independence measure 43 on 05/12/2018, improved to 55 as of 2017. Ambulated 150 ft with a front wheeled walker and minimal assist. Overall minimal assist for mobility. Has not tried stairs as she has no need for stair climbing at home. Grooming and hygiene with supervision, a upper body dressing with setup, lower body dressing with minimal assist. Visual/ perceptual deficit noted by OT. * Continue PT and OT with goal of modified independence for discharge home. Cognitive impairment. Related to stroke. Has cognitive deficit with decreased attention and memory. * Continue Speech and Language Pathology. UTI. Had flank and suprapubic pain when diagnosed so there was suspicion for pyelonephritis pad. Urine culture with Escherichia coli, resistant only to tetracyclines. Completed ciprofloxacin, 7 days, discontinued 05/20/2018. * Monitor clinically Coronary artery disease, status post myocardial infarction and stenting approximately 1 1/2 years ago. * Continue clopidogrel and aspirin, as well as blood pressure control, and lipid control. * These measures will also serve for secondary prevention of CVA. Cryptogenic etiology of CVA. * Secondary prevention with aspirin, clopidogrel, statin, blood pressure control. * Referral to Cardiology after her discharge from inpatient rehabilitation for the placement of a 30-day monitor to rule out cardiac arrhythmia as contributing to her CVA. HTN. Primary. Increased lisinopril from 5 mg to 10 mg q.day starting 05/06/2018 ; increased further to 20 mg starting . * Continue metoprolol 25 mg twice daily. * Continue lisinopril 20 mg daily * BP variable, continue to monitor clinically Pain. Abdominal CT 05/09/2018 showed T12 and L1 compression fractures with mild neural impingement. Adequate control on current medications, with scheduled acetaminophen and tramadol, but nursing reports increased pain at night. Kyphoplasty might provide improved pain relief without medications, however would use up at day of therapy and as it is not necessary for compliance with therapies, will not pursue while on inpatient rehabilitation. * Continue conservative pain management strategies and Rehabilitation, no plan for kyphoplasty either inpatient or after discharge Bipolar disorder. Inpatient treatment has sometimes resulted in changes to her medication regimen that has Center to inpatient psychiatry. * Continue medications. Hypothyroidism. Her levothyroxine dose has been increased. Query whether she has had full compliance with levothyroxine given her recent decline and cognitive issues. * continue 150 mcg per day of levothyroxine * repeat TSH in 4-6 weeks. Prophylaxis. Ambulating 150 ft as of 05/17/2018. Encouraged ambulation to and from meals with assist from nursing. discontinued enoxaparin starting 2017. Will change from pantoprazole back to H2 mohit as well. DISPOSITION: Her brother is in the hospital (05/17/2018) and her sister is preoccupied with her brother's condition as well as the patient's. Seems less likely at present that she will have adequate help at home given her current level of functioning, however with a 12 point gain in functional independence measure she may yet recover sufficient functional independence. Set discharge date for 05/25/2018. Options are home with assistance verses continue rehabilitation at the half-way level. 05/12/18 13:24 05/16/18 09:01 05/16/18 09:05 05/18/18 13:52 05/22/18 14:03 05/22/18 14:04 Subjective: Chief complaint: Questions about kyphoplasty No acute events overnight. Patient denies any new shortness of breath or chest pain, no new numbness, tingling, or weakness. Pain in the back is improving over time, she does not feel it is interfering with therapy very much. A bit worse at night but overall tolerable. The patient expressed that she is currently not very interested in kyphoplasty. I discussed at length with her the pros and cons, high lighting that studies indicate that it is good for short -term pain management but the long-term outcomes are similar to conservative therapy. In addition, kyphoplasty has the risk of infection, injury to the spinal cord or associated nerves, as well as others inherent to procedures. Both her and her sister feel that it is not a good idea to pursue this at this time and do not want to pursue more in the future. Objective: Vital Signs Temp Pulse Resp BP Pulse Ox 36.5 C 56 L 14 121/67 H 95 05/22/18 06:18 05/22/18 06:18 05/22/18 06:18 05/22/18 06:18 05/22/18 06:18 Laboratory Results 05/19/18 06:45 05/21/18 05/22/18 05/23/18 05:59 05:59 05:59 Intake Total 751 1078 480 Output Total 960 1000 Balance -209 78 480 Physical Exam - Physical Exam General Appearance: WD/WN, alert, no apparent distress EENT: No scleral icterus (R), No scleral icterus (L) Respiratory: No respiratory distress, No accessory muscle use Cardiac/Chest: normal peripheral pulses, regular rate, rhythm, No edema Skin: normal color, warm/dry, No cyanosis, No diaphoresis Extremities: non-tender, No pedal edema, No calf tenderness, No swelling Neuro/Psych: alert, normal mood/affect ICD10 Worksheet Patient Problems: Problems Problem Status Onset AMI (acute myocardial infarction) Acute Acute ischemic stroke Acute Confusion Acute Fibula fracture Acute Fracture of right tibial plateau Acute Leukocytosis, unspecified Acute Ribs, multiple fractures Acute
[2018-05-22] MEDS: ZIPRASIDONE HCL 20 MG CAP PO SCH (19:53)
[2018-05-22] MEDS: NORTRIPTYLINE HCL 25 MG CAP PO SCH (19:54)
[2018-05-23] MEDS: ACETAMINOPHEN 500 MG TAB PO SCH ×3 (06:19→21:15)
[2018-05-23] MEDS: LEVOTHYROXINE 150 MCG TAB PO SCH (06:19)
[2018-05-23] MEDS: traMADol 50 MG TAB PO PRN (06:20)
[2018-05-23] MEDS: URSODIOL 300 MG CAP PO SCH ×3 (09:00→21:16)
[2018-05-23] MEDS: METOPROLOL TARTRATE 25 MG TAB PO SCH ×2 (09:00→21:15)
[2018-05-23] MEDS: DIVALPROEX NA 500 MG TAB PO SCH ×2 (09:00→21:15)
[2018-05-23] MEDS: FAMOTIDINE 20 MG TAB PO SCH ×2 (09:00→21:15)
[2018-05-23] MEDS: CLOPIDOGREL BISULFATE 75 MG TAB PO SCH (09:01)
[2018-05-23] MEDS: ATORVASTATIN CALCIUM 40 MG TAB PO SCH (09:01)
[2018-05-23] MEDS: MULTIVITAMINS 1 EACH TAB PO SCH (09:01)
[2018-05-23] MEDS: ASPIRIN EC 325 MG TAB PO SCH (09:01)
[2018-05-23] MEDS: traMADol 50 MG TAB PO SCH ×3 (09:02→21:15)
[2018-05-23] MEDS: LISINOPRIL 20 MG TAB PO SCH (09:02)
[2018-05-23] MEDS: POLYETHYLENE GLYCOL 3350 17 GM PKT PO SCH (09:19)
[2018-05-23] MEDS: SENNOSIDES/DOCUSATE SODIUM TAB PO SCH ×2 (09:19→21:15)
--- NOTE | 2018-05-23 10:24 | SOAPPROG ---
SOAP Progress Note Assessment/Plan: 67-year-old woman with stroke of the left thalamus and left internal capsule found in the setting of acute functional decline over the preceding weeks, stroke thought to be cryptogenic in etiology, follow up with Cardiology after rehab for 30 day monitor. Her case is complicated by history of bipolar disorder. Today's update: Doing well in therapies, no acute issues. She endorsed that she feels good about the plan for no kyphoplasty at this time. Continue rehab plan, goals below are relatively unchanged. Mood is good. Deficits to mobility and activities of daily living status post CVA. Initial functional independence measure 43 on 05/12/2018, improved to 55 as of 2017. Ambulated 150 ft with a front wheeled walker and minimal assist. Overall minimal assist for mobility. Has not tried stairs as she has no need for stair climbing at home. Grooming and hygiene with supervision, a upper body dressing with setup, lower body dressing with minimal assist. Visual/ perceptual deficit noted by OT. * Continue PT and OT with goal of modified independence for discharge home. Cognitive impairment. Related to stroke. Has cognitive deficit with decreased attention and memory. * Continue Speech and Language Pathology. UTI. Had flank and suprapubic pain when diagnosed so there was suspicion for pyelonephritis pad. Urine culture with Escherichia coli, resistant only to tetracyclines. Completed ciprofloxacin, 7 days, discontinued 05/20/2018. * Monitor clinically Coronary artery disease, status post myocardial infarction and stenting approximately 1 1/2 years ago. * Continue clopidogrel and aspirin, as well as blood pressure control, and lipid control. * These measures will also serve for secondary prevention of CVA. Cryptogenic etiology of CVA. * Secondary prevention with aspirin, clopidogrel, statin, blood pressure control. * Referral to Cardiology after her discharge from inpatient rehabilitation for the placement of a 30-day monitor to rule out cardiac arrhythmia as contributing to her CVA. HTN. Primary. Increased lisinopril from 5 mg to 10 mg q.day starting 05/06/2018 ; increased further to 20 mg starting . * Continue metoprolol 25 mg twice daily. * Continue lisinopril 20 mg daily * BP variable, continue to monitor clinically Pain. Abdominal CT 05/09/2018 showed T12 and L1 compression fractures with mild neural impingement. Adequate control on current medications, with scheduled acetaminophen and tramadol, but nursing reports increased pain at night. Kyphoplasty might provide improved pain relief without medications, however would use up at day of therapy and as it is not necessary for compliance with therapies, will not pursue while on inpatient rehabilitation. * Continue conservative pain management strategies and Rehabilitation, no plan for kyphoplasty either inpatient or after discharge Bipolar disorder. Inpatient treatment has sometimes resulted in changes to her medication regimen that has Center to inpatient psychiatry. * Continue medications. Hypothyroidism. Her levothyroxine dose has been increased. Query whether she has had full compliance with levothyroxine given her recent decline and cognitive issues. * continue 150 mcg per day of levothyroxine * repeat TSH in 4-6 weeks. Prophylaxis. Ambulating 150 ft as of 05/17/2018. Encouraged ambulation to and from meals with assist from nursing. discontinued enoxaparin starting 2017. DISPOSITION: Her brother is in the hospital (05/17/2018) and her sister is preoccupied with her brother's condition as well as the patient's. Seems less likely at present that she will have adequate help at home given her current level of functioning, however with a 12 point gain in functional independence measure she may yet recover sufficient functional independence. Set discharge date for 05/25/2018. Options are home with assistance versus continue rehabilitation at the care home level. 05/12/18 13:24 05/16/18 09:01 05/16/18 09:05 05/18/18 13:52 05/22/18 14:03 05/22/18 14:04 05/23/18 10:21 Subjective: Chief complaint: Back pain No acute events overnight. Patient denies any new shortness of breath or chest pain, no new numbness, tingling, or weakness. She feels the back pain is still present, but improving, still does not want a kyphoplasty as discussed on prior days. She has no concerns about her rehab progress, things are going well from her standpoint. Objective: Vital Signs Temp Pulse Resp BP Pulse Ox 36.6 C 60 17 127/72 H 98 05/23/18 06:49 05/23/18 09:00 05/23/18 06:49 05/23/18 09:02 05/23/18 06:49 Laboratory Results 05/19/18 06:45 05/22/18 05/23/18 05/24/18 05:59 05:59 05:59 Intake Total 0307 482 004 Output Total 1000 550 400 Balance 78 -70 -130 Physical Exam - Physical Exam General Appearance: WD/WN, alert, No no apparent distress Respiratory: chest non-tender, lungs clear, normal breath sounds, No respiratory distress, No accessory muscle use Cardiac/Chest: normal peripheral pulses, regular rate, rhythm, No edema Abdomen: normal bowel sounds, non-tender, soft Skin: normal color, warm/dry, No cyanosis, No diaphoresis Extremities: No pedal edema, No swelling Neuro/Psych: alert, normal mood/affect ICD10 Worksheet Patient Problems: Problems Problem Status Onset AMI (acute myocardial infarction) Acute Acute ischemic stroke Acute Confusion Acute Fibula fracture Acute Fracture of right tibial plateau Acute Leukocytosis, unspecified Acute Ribs, multiple fractures Acute
[2018-05-23] MEDS: NORTRIPTYLINE HCL 25 MG CAP PO SCH (21:15)
[2018-05-23] MEDS: ZIPRASIDONE HCL 20 MG CAP PO SCH (21:15)
[2018-05-24] MEDS: traMADol 50 MG TAB PO PRN ×2 (05:09→13:42)
[2018-05-24] MEDS: ACETAMINOPHEN 500 MG TAB PO SCH ×3 (05:10→21:23)
[2018-05-24] MEDS: LEVOTHYROXINE 150 MCG TAB PO SCH (05:10)
[2018-05-24] MEDS: ATORVASTATIN CALCIUM 40 MG TAB PO SCH (08:47)
[2018-05-24] MEDS: DIVALPROEX NA 500 MG TAB PO SCH ×2 (08:48→20:13)
[2018-05-24] MEDS: CLOPIDOGREL BISULFATE 75 MG TAB PO SCH (08:48)
[2018-05-24] MEDS: MULTIVITAMINS 1 EACH TAB PO SCH (08:48)
[2018-05-24] MEDS: traMADol 50 MG TAB PO SCH ×3 (08:48→21:23)
[2018-05-24] MEDS: ASPIRIN EC 325 MG TAB PO SCH (08:48)
[2018-05-24] MEDS: SENNOSIDES/DOCUSATE SODIUM TAB PO SCH ×2 (08:48→20:13)
[2018-05-24] MEDS: URSODIOL 300 MG CAP PO SCH ×3 (08:48→21:22)
[2018-05-24] MEDS: FAMOTIDINE 20 MG TAB PO SCH ×2 (08:48→20:13)
[2018-05-24] MEDS: LISINOPRIL 20 MG TAB PO SCH (08:53)
[2018-05-24] MEDS: METOPROLOL TARTRATE 25 MG TAB PO SCH ×2 (08:53→20:14)
[2018-05-24] MEDS: POLYETHYLENE GLYCOL 3350 17 GM PKT PO SCH (09:50)
--- NOTE | 2018-05-24 14:50 | SOAPPROG ---
SOAP Progress Note Assessment/Plan: 67-year-old woman with stroke of the left thalamus and left internal capsule found in the setting of acute functional decline over the preceding weeks, stroke thought to be cryptogenic in etiology, follow up with Cardiology after rehab for 30 day monitor. Her case is complicated by history of bipolar disorder. Today's update: Some potential symptoms of delirium reported from earlier in the week, review of medication indicates that she is on a number that could contribute delirium including nortriptyline, tramadol, ziprasidone, divalproex. It has been clear from the patient and family that her psychiatric medications are not to be modified, although these may be contributing to delirium. Consider psychiatric consultation for tomorrow for review of medications. Encouraged her to work with social work on pain behavior, anxiety. A total of 45 min was spent on the floor in the care of the patient, the majority of which was spent in counseling coordination of care regarding team meeting, rehabilitation course planning, counseling with patient on pain management strategies Deficits to mobility and activities of daily living status post CVA. Visual/ perceptual deficit noted by OT. * Continue PT and OT with goal of modified independence for discharge home. Cognitive impairment. Related to stroke. Has cognitive deficit with decreased attention and memory. * Continue Speech and Language Pathology. Cryptogenic etiology of CVA. * Secondary prevention with aspirin, clopidogrel, statin, blood pressure control. * Referral to Cardiology after her discharge from inpatient rehabilitation for the placement of a 30-day monitor to rule out cardiac arrhythmia as contributing to her CVA. Bipolar disorder, anxiety. Inpatient treatment has sometimes resulted in changes to her medication regimen that has Center to inpatient psychiatry. * Continue medications, nortriptyline, tramadol, ziprasidone, divalproex. * Consider consultation from Psychiatry for medication recommendations, unlikely to make changes in the absence of psychiatric consultation. Coronary artery disease, status post myocardial infarction and stenting approximately 1 1/2 years ago. * Continue clopidogrel and aspirin, as well as blood pressure control, and lipid control. * These measures will also serve for secondary prevention of CVA. Pain. Abdominal CT 05/09/2018 showed T12 and L1 compression fractures with mild neural impingement. Adequate control on current medications, with scheduled acetaminophen and tramadol, but nursing reports increased pain at night. Kyphoplasty might provide improved pain relief without medications, however would use up at day of therapy and as it is not necessary for compliance with therapies, will not pursue while on inpatient rehabilitation. * Continue conservative pain management strategies and Rehabilitation, no plan for kyphoplasty either inpatient or after discharge * Appears to have fairly significant pain behavior associated with this as well. UTI. Had flank and suprapubic pain when diagnosed so there was suspicion for pyelonephritis pad. Urine culture with Escherichia coli, resistant only to tetracyclines. Completed ciprofloxacin, 7 days, discontinued 05/20/2018. * Monitor clinically HTN. Primary. Increased lisinopril from 5 mg to 10 mg q.day starting 05/06/2018 ; increased further to 20 mg starting . * Continue metoprolol 25 mg twice daily. * Continue lisinopril 20 mg daily * BP variable, continue to monitor clinically Hypothyroidism. Her levothyroxine dose has been increased. Query whether she has had full compliance with levothyroxine given her recent decline and cognitive issues. * continue 150 mcg per day of levothyroxine * repeat TSH in 4-6 weeks. Prophylaxis. Ambulating 150 ft as of 05/17/2018. Encouraged ambulation to and from meals with assist from nursing. discontinued enoxaparin starting 2017. DISPOSITION: Her brother is in the hospital (05/17/2018) and her sister is preoccupied with her brother's condition as well as the patient's. Seems less likely at present that she will have adequate help at home given her current level of functioning, however with a 12 point gain in functional independence measure she may yet recover sufficient functional independence. Set discharge date for 05/25/2018. Options are home with assistance versus continue rehabilitation at the [facility] level. 05/12/18 13:24 05/16/18 09:01 05/16/18 09:05 05/18/18 13:52 05/22/18 14:03 05/22/18 14:04 05/23/18 10:21 05/24/18 14:39 05/24/18 14:52 Subjective: Chief complaint: Back pain No acute events overnight. Patient denies any new shortness of breath or chest pain, no new numbness, tingling, or weakness. She continues to have some intermittent back pain, however this is improving. Seems to most directly affect her ability to get in and out of bed. She does have pain behavior as reported by physical therapy. Some anxiety associated with that as well. Also , it appears that she has had some symptoms that could be consistent with delirium from earlier in the week when she called her daughter in the middle the night. This was not reported to me. Continue to encourage nonpharmacological pain management strategies. Patient thinks that therapy is going well overall. Objective: Vital Signs Temp Pulse Resp BP Pulse Ox 36.5 C 66 14 138/71 H 92 05/24/18 08:00 05/24/18 08:53 05/24/18 08:00 05/24/18 08:53 05/24/18 08:00 Laboratory Results 05/19/18 06:45 05/23/18 05/24/18 05/25/18 05:59 05:59 05:59 Intake Total 480 790 260 Output Total 550 1400 Balance -70 -610 260 ICD10 Worksheet Patient Problems: Problems Problem Status Onset AMI (acute myocardial infarction) Acute Acute ischemic stroke Acute Confusion Acute Fibula fracture Acute Fracture of right tibial plateau Acute Leukocytosis, unspecified Acute Ribs, multiple fractures Acute
[2018-05-24] MEDS: ZIPRASIDONE HCL 20 MG CAP PO SCH (20:13)
[2018-05-24] MEDS: NORTRIPTYLINE HCL 25 MG CAP PO SCH (20:13)
[2018-05-25] MEDS: LEVOTHYROXINE 150 MCG TAB PO SCH (06:18)
[2018-05-25] MEDS: ACETAMINOPHEN 500 MG TAB PO SCH ×3 (06:18→20:55)
[2018-05-25] MEDS: ATORVASTATIN CALCIUM 40 MG TAB PO SCH (08:25)
[2018-05-25] MEDS: ASPIRIN EC 325 MG TAB PO SCH (08:25)
[2018-05-25] MEDS: DIVALPROEX NA 500 MG TAB PO SCH ×2 (08:26→20:56)
[2018-05-25] MEDS: CLOPIDOGREL BISULFATE 75 MG TAB PO SCH (08:26)
[2018-05-25] MEDS: URSODIOL 300 MG CAP PO SCH ×3 (08:28→20:56)
[2018-05-25] MEDS: FAMOTIDINE 20 MG TAB PO SCH ×2 (08:28→20:56)
[2018-05-25] MEDS: METOPROLOL TARTRATE 25 MG TAB PO SCH ×2 (08:29→21:01)
[2018-05-25] MEDS: LISINOPRIL 20 MG TAB PO SCH (08:29)
[2018-05-25] MEDS: traMADol 50 MG TAB PO SCH ×3 (08:30→20:54)
[2018-05-25] MEDS: MULTIVITAMINS 1 EACH TAB PO SCH (08:30)
[2018-05-25] MEDS: POLYETHYLENE GLYCOL 3350 17 GM PKT PO SCH (09:55)
[2018-05-25] MEDS: SENNOSIDES/DOCUSATE SODIUM TAB PO SCH ×2 (09:55→21:12)
--- NOTE | 2018-05-25 13:37 | SOAPPROG ---
SOAP Progress Note Assessment/Plan: 67-year-old woman with stroke of the left thalamus and left internal capsule found in the setting of acute functional decline over the preceding weeks, stroke thought to be cryptogenic in etiology, follow up with Cardiology after rehab for 30 day monitor. Her case is complicated by history of bipolar disorder. Today's update: Reported delirium is improving, 1 episode of stool incontinence overnight, sounds like it was related to urgency. Stable from a psychiatric standpoint. Increasing lisinopril to 40 mg daily owing to persistent hypertension. A total of 25 min was spent on the floor in the care of the patient, the majority of which was spent counseling and coordination of care regarding delirium assessment and prevention. Deficits to mobility and activities of daily living status post CVA. Visual/ perceptual deficit noted by OT. * Continue PT and OT with goal of modified independence for discharge home. Cognitive impairment. Related to stroke. Has cognitive deficit with decreased attention and memory. * Continue Speech and Language Pathology. Cryptogenic etiology of CVA. * Secondary prevention with aspirin, clopidogrel, statin, blood pressure control. * Referral to Cardiology after her discharge from inpatient rehabilitation for the placement of a 30-day monitor to rule out cardiac arrhythmia as contributing to her CVA. Delirium: Appear to have some low level delirium that has been improving in the latter part of her rehabilitation course * Continue to avoid medications that would promote delirium, monitor, keep reoriented. Bipolar disorder, anxiety. Inpatient treatment has sometimes resulted in changes to her medication regimen that has [facility] to inpatient psychiatry. * Continue medications, nortriptyline, tramadol, ziprasidone, divalproex. Coronary artery disease, status post myocardial infarction and stenting approximately 1 1/2 years ago. * Continue clopidogrel and aspirin, as well as blood pressure control, and lipid control. * These measures will also serve for secondary prevention of CVA. Pain. Abdominal CT 05/09/2018 showed T12 and L1 compression fractures with mild neural impingement. Adequate control on current medications, with scheduled acetaminophen and tramadol, but nursing reports increased pain at night. Kyphoplasty might provide improved pain relief without medications, however would use up at day of therapy and as it is not necessary for compliance with therapies, will not pursue while on inpatient rehabilitation. * Continue conservative pain management strategies and Rehabilitation, no plan for kyphoplasty either inpatient or after discharge * Appears to have fairly significant pain behavior associated with this as well. UTI. Had flank and suprapubic pain when diagnosed so there was suspicion for pyelonephritis pad. Urine culture with Escherichia coli, resistant only to tetracyclines. Completed ciprofloxacin, 7 days, discontinued 05/20/2018. * Monitor clinically HTN. Primary. Increased lisinopril from 5 mg to 10 mg q.day starting 05/06/2018 ; increased further to 20 mg starting . * Continue metoprolol 25 mg twice daily. * Continue lisinopril 20 mg daily * BP variable, continue to monitor clinically Hypothyroidism. Her levothyroxine dose has been increased. Query whether she has had full compliance with levothyroxine given her recent decline and cognitive issues. * continue 150 mcg per day of levothyroxine * repeat TSH in 4-6 weeks. Prophylaxis. Ambulating 150 ft as of 05/17/2018. Encouraged ambulation to and from meals with assist from nursing. discontinued enoxaparin starting 2017. DISPOSITION: Her brother is in the hospital (05/17/2018) and her sister is preoccupied with her brother's condition as well as the patient's. Seems less likely at present that she will have adequate help at home given her current level of functioning, however with a 12 point gain in functional independence measure she may yet recover sufficient functional independence. Set discharge date for 05/25/2018. Options are home with assistance versus continue rehabilitation at the long term level. 05/12/18 13:24 05/16/18 09:01 05/16/18 09:05 05/18/18 13:52 05/22/18 14:03 05/22/18 14:04 05/23/18 10:21 05/24/18 14:39 05/24/18 14:52 05/25/18 13:34 Subjective: Chief complaint: Nighttime confusion, hypertension No acute events overnight. Reports that she is sleeping well, did have an episode of stool incontinence overnight. She will occasionally wake up confused , but earlier reports of nighttime confusion seems to be improving. Continues to be mildly hypertensive. She denies any new shortness of breath or chest pain , no new numbness, tingling, or weakness. She does not feel confused today. She feels that overall her sleep is improving. Objective: Vital Signs Temp Pulse Resp BP Pulse Ox 36.5 C 66 18 162/67 H 98 05/25/18 06:04 05/25/18 06:04 05/25/18 06:04 05/25/18 06:04 05/25/18 06:04 Laboratory Results 05/19/18 06:45 05/24/18 05/25/18 05/26/18 05:59 05:59 05:59 Intake Total 790 600 600 Output Total 1400 180 250 Balance -610 420 350 Physical Exam - Physical Exam General Appearance: WD/WN, alert, no apparent distress EENT: No scleral icterus (R), No scleral icterus (L) Respiratory: No respiratory distress, No accessory muscle use Cardiac/Chest: normal peripheral pulses, regular rate, rhythm, No edema Skin: normal color, warm/dry, No cyanosis, No diaphoresis Extremities: non-tender, No pedal edema, No calf tenderness, No swelling Neuro/Psych: alert, normal mood/affect, No oriented x 3 (Oriented to place and self as well as season and time of day) ICD10 Worksheet Patient Problems: Problems Problem Status Onset AMI (acute myocardial infarction) Acute Acute ischemic stroke Acute Confusion Acute Fibula fracture Acute Fracture of right tibial plateau Acute Leukocytosis, unspecified Acute Ribs, multiple fractures Acute
[2018-05-25] MEDS: NORTRIPTYLINE HCL 25 MG CAP PO SCH (20:55)
[2018-05-25] MEDS: ZIPRASIDONE HCL 20 MG CAP PO SCH (20:55)
[2018-05-26] MEDS: ACETAMINOPHEN 500 MG TAB PO SCH ×2 (05:28→13:39)
[2018-05-26] MEDS: LEVOTHYROXINE 150 MCG TAB PO SCH (05:28)
[2018-05-26] MEDS: ASPIRIN EC 325 MG TAB PO SCH (08:31)
[2018-05-26] MEDS: CLOPIDOGREL BISULFATE 75 MG TAB PO SCH (08:31)
[2018-05-26] MEDS: METOPROLOL TARTRATE 25 MG TAB PO SCH (08:31)
[2018-05-26] MEDS: MULTIVITAMINS 1 EACH TAB PO SCH (08:32)
[2018-05-26] MEDS: ATORVASTATIN CALCIUM 40 MG TAB PO SCH (08:32)
[2018-05-26] MEDS: DIVALPROEX NA 500 MG TAB PO SCH (08:33)
[2018-05-26] MEDS: FAMOTIDINE 20 MG TAB PO SCH (08:34)
[2018-05-26] MEDS: URSODIOL 300 MG CAP PO SCH (08:35)
[2018-05-26] MEDS: traMADol 50 MG TAB PO SCH (08:37)
[2018-05-26] MEDS: SENNOSIDES/DOCUSATE SODIUM TAB PO SCH (08:38)
[2018-05-26] MEDS: POLYETHYLENE GLYCOL 3350 17 GM PKT PO SCH (08:38)
[2018-05-26 08:39] VITALS: BP 152/74
[2018-05-26] MEDS ORDERED: LISINOPRIL 40 MG TAB PO SCH (09:00)
--- NOTE | 2018-05-26 13:12 | PDOREHIP ---
Admission [facility] - Admission - 3 Day Assessment Period Admission Date/Day 1: 05/09/18 Day 2: 05/10/18 Day 3: 05/11/18 Discharge [facility] - Discharge - 3 Day Assessment Period 2 Days Prior to Anticipated Discharge Date: 05/30/18 1 Day Prior to Anticipated Discharge Date: 05/31/18 Anticipated Discharge Date: 06/01/18 - Discharge Skin Conditions Unhealed Pressure Ulcer (1 or more/Stage 1 or >)-Discharge: 0. No
--- NOTE | 2018-05-26 13:34 | GDS ---
[f rep st] DISCHARGE SUMMARY CONSULTING PHYSICIANS: There were none. COMPLICATIONS: There were none. PROCEDURES: There were none. ADMITTING DIAGNOSIS: Cerebrovascular accident. OTHER DISCHARGE DIAGNOSES: 1. T12 and L1 compression fractures. 2. Bipolar disorder. 3. Hypothyroidism. 4. Urinary tract infection. 5. Hypertension. HISTORY/HOSPITAL COURSE: This patient suffered a cerebrovascular accident of the left thalamus and internal capsule. She had several weeks of functional decline including frequent falls and difficulty with short-term memory. Her primary care provider referred her for an MRI which showed the stroke. There had been a head CT several days previously after she fell and it showed no significant abnormalities. Stroke was considered to be cryptogenic, for which a referral to Cardiology was to happen once she was no longer hospitalized for placement of a farm implement mechanic to rule out occult atrial fibrillation. Her progress in rehabilitation was initially impaired by pain; it was unclear exactly where though she indicated abdominal discomfort. An abdominal CT scan was obtained and there was no intraabdominal pathology. However, there were T12 and L1 compression fractures. Kyphoplasty was considered, but adequate pain control was achieved pharmacologically and the decision regarding kyphoplasty was postponed until after her rehabilitation stay. She had slow but continual progress in rehabilitation. Initial functional independence measure was 43 on 05/12/2018. This is consistent with [facility] level of care and needing assistance with all aspects of mobility and activities of daily living. She required moderate assist for bed mobility with maximal cues for spinal precautions. She was able to ambulate 40 to 60 feet with a front-wheeled walker and cues for hand placement and spinal precautions. She required only setup for upper body dressing, but minimal assist for lower body dressing. She had considerable improvement. By 05/17/2018, her functional independence measure had improved to 55, which is still consistent with [facility] level of care. She had ambulated 150 feet with a front-wheeled walker and minimal assist and generally was requiring minimal assistance for mobility. Upper body dressing required setup and lower body dressing required minimal assist. Bed mobility had improved to contact guard assist but she needed cues for spinal precautions. She needed standby to contact guard assist for transfers with a front-wheeled walker. She ambulated 150 feet or more with a front-wheeled walker and standby assist. Upper body dressing required setup to minimal assist and lower body dressing required setup to minimal assist. She was needing encouragement to do as much as she could for herself for her self-care routine. She had a urinary tract infection during her stay, which was effectively treated with ciprofloxacin. The etiology of her stroke was considered cryptogenic and she should have referral to Cardiology after discharge for placement of a 30 day monitor to rule out cardiac arrhythmia. She had hypertension. Metoprolol was continued at 25 mg twice a day. She had titration of lisinopril starting at 5 mg and ultimately at 40 mg per day with improved blood pressure control. Bipolar disorder was stable on current medications. She was found to have an elevated TSH while she was in the hospital and levothyroxine was increased from 125 mg daily to 150 mg daily. She should have a followup TSH done in mid to late May. CONDITION UPON DISCHARGE: Good. DISCHARGE DESTINATION: [facility]. DIET: Regular. ACTIVITY: Ad eliud but she requires contact guard assist to standby assist for mobility and for safety with activities of daily living. MEDICATIONS UPON DISCHARGE: 1. Acetaminophen 650 mg p.o. q.4 hours p.r.n. 2. Aspirin 325 mg p.o. daily. 3. Atorvastatin 40 mg p.o. daily. 4. Clopidogrel 75 mg p.o. daily. 5. Divalproex 500 mg p.o. twice daily. 6. Levothyroxine 150 mcg p.o. daily. 7. Lisinopril 40 mg p.o. daily. 8. Metoprolol 25 mg p.o. twice daily. 9. Multivitamin daily. 10. Nortriptyline 25 mg p.o. q. h.s. 11. Senna 1-2 tablets p.o. b.i.d. 12. Tramadol 50 mg p.o. t.i.d. scheduled and 50 mg p.o. q.4 hours p.r.n. 13. Ursodiol 300 mg p.o. t.i.d. 14. Ziprasidone 20 mg p.o. q. h.s. 15. Divalproex 500 mg p.o. b.i.d. 16. Levothyroxine 150 mcg p.o. daily. 17. Ranitidine 150 mg p.o. b.i.d. ISSUES TO BE ADDRESSED AT FOLLOWUP: 1. Cognitive and functional status. She will continue STYLE ADVISOR, PT and OT at the [facility]. 2. Hypothyroidism with recent change in her levothyroxine dose. She should have a repeat TSH done in mid to late May. 3. T12 and L1 compression fracture. Continue medications for pain control. If pain control is inadequate, might consider referral for kyphoplasty. 4. Cryptogenic etiology of stroke. She has a referral set up with style advisor , Dr. Raffi Teran for placement of a 30 day monitor to rule out atrial fibrillation or other cardiac arrhythmia. 5. Functional status, status post CVA. She will have therapies at [facility] and can follow up with primary care provider, Gina Jain, and with neurologist, Kunal Bush, regarding her progress. Copy requested to: [facility] New attending /[id number]/MODL SERGIO
[2018-05-26] MEDS: traMADol 50 MG TAB PO PRN (13:40)
== END 2018-05-26 13:50 | DRG 57 ==
LOC: BREH 16:21
PROVIDERS: ADMIT Internal Medicine; ATTEND Internal Medicine
PROC: F07M3ZZ Motor Function Treatment of Musculoskeletal System - Whole Body (ICD-10-PCS; principal; 2018-05-09)
PROC: F0636ZZ Communicative/Cognitive Integration Skills Treatment of Neurological System - Whole Body (ICD-10-PCS; principal; 2018-05-09)
PROC: F08Z7ZZ Vocational Activities and Functional Community or Work Reintegration Skills Treatment (ICD-10-PCS; principal; 2018-05-09)
DX: I69.314 Frontal lobe and executive function deficit following cerebral infarction (principal); I69.311 Memory deficit following cerebral infarction; I69.310 Attention and concentration deficit following cerebral infarction; F31.9 Bipolar disorder, unspecified; M80.08XA Age-related osteoporosis with current pathological fracture, vertebra(e), initial encounter for fracture; N39.0 Urinary tract infection, site not specified; B96.20 Unspecified Escherichia coli [E. coli] as the cause of diseases classified elsewhere; Z16.29 Resistance to other single specified antibiotic; E03.9 Hypothyroidism, unspecified; I25.10 Atherosclerotic heart disease of native coronary artery without angina pectoris; I25.2 Old myocardial infarction; Z95.5 Presence of coronary angioplasty implant and graft; Z79.82 Long term (current) use of aspirin; I10 Essential (primary) hypertension; E66.3 Overweight; Z68.28 Body mass index [BMI] 28.0-28.9, adult
CPT/HCPCS: 92507-GN; 92523-GN; 97110-GO; 97110-GP; 97112-GO; 97112-GP; 97116-GP; 97163-GP; 97166-GO; 97530-GO; 97530-GP; 97535-GO; 97542-GP; 97760-GP; 99368-GN; 99368-GO; 99368-GP; G0515-GO; J1650

== ENCOUNTER → 2018-11-16 | Outpatient (CLI) | payer OTHER | LOC: FIMAGING 14:26 | PROVIDERS: ATTEND Family Medicine | DX: Z12.31 Encounter for screening mammogram for malignant neoplasm of breast (principal) ==

== ENCOUNTER → 2019-01-02 | Outpatient (CLI) | payer OTHER | LOC: FIMAGING 12:18 | PROVIDERS: ATTEND Family Medicine | DX: R92.8 Other abnormal and inconclusive findings on diagnostic imaging of breast (principal) ==

== ENCOUNTER → 2019-01-25 | Outpatient (CLI) | payer OTHER ==
--- NOTE | 2019-01-29 13:36 | CPEEG ---
[f rep st] ELECTROENCEPHALOGRAM 4-HOUR VIDEO EEG DATE OF STUDY: 01/25/2019 DATE OF INTERPRETATION: January 29, 2019 INTERPRETATION: This 4-hour video EEG recording contains a mild degree of focal slowing over the bit emporal head regions. These findings would be consistent with a mild focal disturbance of cerebral f unction in these regions. There were no definite epileptogenic abnormalities present during the awak e or sleep recordings. The patient did not have any clinical events during the EEG monitoring sessio n. REPORT: This EEG contains 9 Hz alpha to the posterior head regions. There was a mild degree of bite mporal slowing present composed of theta and low amplitude delta frequency activity, most prominently during drowsiness. There was no abnormal activation at rest, during photic stimulation or hypervent ilation. The patient became drowsy and fell into sustained sleep during the study. During light sle ep and drowsiness, the patient had occasional activation of bitemporal, independent wicket waves. Th ere was a single sharply contoured waveform of uncertain clinical significance over the right tempora l head region on epoch 728. There was no definite epileptogenic abnormalities present during the tacho ke or sleep recordings. There were no clinical events recorded during the video EEG monitoring sessi on. /[id number]/MODL
== END ==
LOC: FCPNEURO 08:30
PROVIDERS: ATTEND Psychiatry & Neurology Neurology
DX: R56.9 Unspecified convulsions (principal); Z86.73 Personal history of transient ischemic attack (TIA), and cerebral infarction without residual deficits